=== PATIENT | male | born 1965 | race Caucasian/White ===

== ENCOUNTER 2018-05-12 11:13 | Outpatient (REF) | payer MEDICAID, SELFPAY ==
[2018-05-12 21:54] LABS: TSH (W/Ref FT4) 1.12 uIU/mL (0.358-3.74)
== END 2018-05-12 11:33 ==
LOC: NCHCN 11:13
PROVIDERS: PCP Family Medicine; Visit Provider Family Medicine
DX: E03.9 Hypothyroidism, unspecified (principal)
CPT/HCPCS: 84443

== ENCOUNTER 2018-06-17 09:14 | Outpatient (REF) | payer MEDICAID, SELFPAY ==
[2018-06-17 19:38] LABS: FREE T4 1.24 ng/dL (0.76-1.46)
[2018-06-17 19:57] LABS: C-Reactive Protein < 0.05 mg/dL (0.0-0.3)
[2018-06-17 20:02] LABS: ESR 5 MM/HR (1-20)
== END 2018-06-17 09:34 ==
LOC: NCHCN 09:14
PROVIDERS: PCP Family Medicine; Visit Provider Family Medicine
DX: M06.9 Rheumatoid arthritis, unspecified (principal); E03.9 Hypothyroidism, unspecified
CPT/HCPCS: 85652; 84439; 86140

== ENCOUNTER 2018-06-23 01:22 | Outpatient (CLI) | payer MEDICAID, SELFPAY ==
--- NOTE | 2018-06-23 15:00 | DIABASSESS_ITS ---
DESCRIPTION/ASSESSMENT: Douglas Tellez presents for diabetes self management looking for CGM discussion. He admits his blood sugars have been variable. MEDICATION: 26u Lantus in AM, 16+ units PM based on his blood sugar. He guesses his dose of Novolog taking 5 units for some meals. MONITORING: Douglas tests his blood sugars up to 4 times a day. He is limited to 4 strips a day, so he does not often test when he feels hypoglycemic as he fears running out of strips. The time and date on his glucometer is incorrect, so it is difficult to determine the timing of his blood sugars. Range of 89-438. He states he does not always know when he has a low blood sugar. He treats hypoglycemia symptoms with crackers. A1c 8.3. PHYSICAL ACTIVITY: Douglas has limited movement secondary to rheumatoid arthritis. He is treated with Methotrexate at this time. He wonders if this causes hyperglycemia. He is unable to work because of this. He states he is in constant pain. STRESS: Douglas admits to high stress due to his inability to work. He has always performed physical work. FOOD: Douglas eats ham, egg, toast for breakfast, or just toast and butter; sometimes skips lunch and eats typical supper, last night tacos. States he loves pasta and potato. He is having difficulty affording food without working regularly. INTERVENTION: Douglas is concerned about his blood sugars and is interested in discussing managing blood sugars better regardless of CGM. MONITORING: Discussed Dexcom glucometer advantages and he is shown the device to understand size and how it works. MEDICATION: Explained basal:bolus. Discussed basal insulin action and emphasized bolus insulin is meant to correct hyperglycemia; not basal insulin and he voices understanding. PLAN: Douglas is willing to monitor blood sugars before each meal and bedtime and document food intake for 2 days. He wishes to return for follow-up Wednesday AM. Individual DSME/T __2__ units billed TIME IN: 1500 OUT: 1610 No DM group education series being offered at this time.
== END 2018-06-23 01:42 ==
PROVIDERS: PCP Family Medicine; Visit Provider Dietitian, Registered
DX: E10.9 Type 1 diabetes mellitus without complications (principal); Z79.4 Long term (current) use of insulin; Z71.3 Dietary counseling and surveillance
CPT/HCPCS: G0108

== ENCOUNTER 2018-06-27 10:01 | Outpatient (CLI) | payer MEDICAID, SELFPAY ==
--- NOTE | 2018-06-27 09:00 | DIABASSESS_ITS ---
DESCRIPTION/ASSESSMENT: Douglas states his blood sugars are much better. Fasting blood sugars all less than 200, mostly less than 150; other blood sugars through day also improved. He was hypoglycemic one morning. He is taking Lantus consistently but decreased by 1 unit; 26units PM, now 15units AM. He is taking his Novolog for food and correction, however it is evident he under-doses because of fear of hypoglycemia in the night. Douglas states he is being more careful about what he eats simply because he has to write it down. He believes this is improving his blood sugars as well. INTERVENTION: Suggested ongoing decrease in basal insulin 1 unit every few days and watching fasting blood sugar. Discussed foods that impact blood sugars and importance of taking insulin as directed. With decrease in basal, his fear of nocturnal hypoglycemia should be decreased. Reviewed CGM system, process for obtaining the Telecardia 6 CGM. He is given an application to complete as desired. ACTION PLAN: Douglas will continue to document his food, blood sugar and insulin dose; dose for carbohydrate with every meal, especially breakfast, unless he is very active that morning Decrease his Lantus dose 1 unit every few days and monitor fasting blood sugar for effect. He will take Novolog as directed; avoid bedtime correction with Novolog unless above 200, and preferably not at all. He will complete his CGM application as desired and return it for submission. We will be in touch by telephone in the meantime. Individual MNT discussion face to face 20 minutes 1 unit billed No DM group education series being offered at this time.
== END 2018-06-27 10:21 ==
PROVIDERS: PCP Family Medicine; Visit Provider Dietitian, Registered
DX: E11.9 Type 2 diabetes mellitus without complications (principal); Z79.4 Long term (current) use of insulin; Z71.3 Dietary counseling and surveillance
CPT/HCPCS: 97802

== ENCOUNTER 2018-10-20 00:24 | Outpatient (CLI) | payer OTHER, MEDICAID, SELFPAY ==
--- NOTE | 2018-10-20 10:25 | DI.RAD_ITS ---
SYMPTOMS/DIAGNOSIS: DISABILITY DETERMINATION, LT KNEE PAIN, PAIN IN HIPS LEFT KNEE: Three views were obtained. There is an intramedullary violet in place in the femur. There is moderate narrowing of the medial tibiofemoral cartilaginous joint space. Minimal hypertrophic spurring of the bones of the knee noted. CONCLUSION: Mild to moderate DJD predominantly involving medial tibiofemoral joint. PELVIS AND BILATERAL HIPS: Six views were obtained. There are marked degenerative changes of the lower lumbar spine. There is narrowing of the cartilaginous joint space of the left hip superiorly with subchondral sclerosis and cyst formation of the acetabulum. Mild degenerative changes also seen involving right hip. There is heterotopic bone formation associated with the greater trochanter of the femur on the left with an intramedullary violet and fixation screw in place. Cerclage wires are also present proximally. CONCLUSION: Mild DJD right hip, moderate DJD left hip. Left intramedullary violet in place in the femur. Identified by photo [place] license
== END 2018-10-20 00:44 ==
PROVIDERS: PCP Family Medicine; Visit Provider Pediatrics Pediatric Rheumatology
DX: M25.562 Pain in left knee (principal); M25.551 Pain in right hip; M25.552 Pain in left hip; M17.12 Unilateral primary osteoarthritis, left knee; M16.0 Bilateral primary osteoarthritis of hip; Z02.71 Encounter for disability determination
CPT/HCPCS: 73521; 73560

== ENCOUNTER 2018-11-24 08:56 | Outpatient (CLI) | payer MEDICAID, SELFPAY ==
[2018-11-24 10:27] LABS: Anion Gap 15.6 mmol/L (3-11); BUN 20 mg/dL (7-18); CO2 22.4 mmol/L (21.0-32.0); CREATININE 0.92 mg/dL (0.70-1.30); Calcium 9.5 mg/dL (8.5-10.1); Chloride 100 mmol/L (98-107); Glucose 225 mg/dL (70-100); Potassium 4.9 mmol/L (3.5-5.1); Sodium 138 mmol/L (136-145)
[2018-11-25 16:20] LABS: C-Peptide <0.1 ng/mL (1.1 - 4.4)
[2018-11-29 17:41] LABS: GAD65 Ab Assay 17.5 nmol/L (<= 0.02)
== END 2018-11-24 09:16 ==
PROVIDERS: PCP Family Medicine; Visit Provider Internal Medicine Endocrinology, Diabetes & Metabolism
DX: E10.65 Type 1 diabetes mellitus with hyperglycemia (principal)
CPT/HCPCS: 36415; 80048; 86341; 84681

== ENCOUNTER 2019-02-23 01:27 | Outpatient (CLI) | payer MEDICAID, SELFPAY ==
[2019-02-23 09:24] LABS: Hemoglobin A1C 7.7 % (4.5-6.2)
[2019-02-23 09:33] LABS: Anion Gap 10.8 mmol/L (3-11); BUN 16 mg/dL (7-18); CO2 25.2 mmol/L (21.0-32.0); CREATININE 0.84 mg/dL (0.70-1.30); Calcium 9.1 mg/dL (8.5-10.1); Chloride 106 mmol/L (98-107); Glucose 148 mg/dL (70-100); Potassium 4.6 mmol/L (3.5-5.1); Sodium 142 mmol/L (136-145)
[2019-02-24 14:23] LABS: Fructosamine 305 mcmol/L (200 - 285)
== END 2019-02-23 01:47 ==
PROVIDERS: PCP Family Medicine; Visit Provider Internal Medicine Endocrinology, Diabetes & Metabolism
DX: E10.65 Type 1 diabetes mellitus with hyperglycemia (principal)
CPT/HCPCS: 36415; 80048; 82985; 83036

== ENCOUNTER 2019-07-03 02:14 | Outpatient (CLI) | payer MEDICAID, SELFPAY ==
[2019-07-03 08:04] LABS: Anion Gap 8.1 mmol/L (3-11); BUN 19 mg/dL (7-18); CO2 27.9 mmol/L (21.0-32.0); CREATININE 0.87 mg/dL (0.70-1.30); Calcium 9.4 mg/dL (8.5-10.1); Chloride 103 mmol/L (98-107); Glucose 179 mg/dL (74-106); Potassium 5.1 mmol/L (3.5-5.1); Sodium 139 mmol/L (136-145)
[2019-07-03 08:37] LABS: Hemoglobin A1C 6.8 % (3.8-5.6)
[2019-07-04 13:35] LABS: Fructosamine 246 mcmol/L (200 - 285)
== END 2019-07-03 02:34 ==
PROVIDERS: PCP Family Medicine; Visit Provider Internal Medicine Endocrinology, Diabetes & Metabolism
DX: E10.65 Type 1 diabetes mellitus with hyperglycemia (principal)
CPT/HCPCS: 36415; 80048; 82985; 83036

== ENCOUNTER 2019-07-18 10:42 | Outpatient (CLI) | payer MEDICAID, SELFPAY ==
[2019-07-18 12:35] LABS: Abs Immature Grans 0.02 k/cumm (0.0-0.09); Absolute Basophil Count 0.02 k/cumm (0.0-0.2); Absolute Eosinophil Count 0.07 k/cumm (0.0-0.7); Absolute Lymphocyte Count 2.19 k/cumm (1.2-3.4); Absolute Monocyte Count 0.69 k/cumm (0.11-0.7); Absolute Neutrophil Count 7.14 k/cumm (1.2-6.7); Basophils % 0.2; Eosinophils % 0.7; HCT 43.5 % (40.0-50.0); HGB 14.2 g/dL (13.5-17.5); Immature Grans % 0.2 %; Lymphocytes % 21.6; Mean Corp. HGB Concentration 32.6 g/dL (32.0-36.0); Mean Corpuscular Hemoglobin 30.5 pg (27.0-33.0); Mean Corpuscular Volume 93.3 fL (80-95); Mean Platelet Volume 9.9 fL (8.0-11.0); Monocytes % 6.8; Neutrophils % 70.5; Platelet Count 531 x1000/uL (130-400); RBC 4.66 m/cumm (4.50-6.00); RBC Distribution Width 13.4 % (11.8-14.1); White Blood Cell Count 10.13 k/cumm (4.4-10.8)
[2019-07-18 12:49] LABS: ALT 28 U/L (16-63); AST 19 U/L (15-37); Albumin 4.3 g/dL (3.4-5.0); Alkaline Phosphatase 88 U/L (46-116); Anion Gap 8.3 mmol/L (3-11); BUN 17 mg/dL (7-18); Bilirubin, Total 0.4 mg/dL (0.2-1.0); C-Reactive Protein 0.31 mg/dL (0.0-0.3); CO2 29.7 mmol/L (21.0-32.0); CREATININE 0.89 mg/dL (0.70-1.30); Calcium 9.5 mg/dL (8.5-10.1); Chloride 106 mmol/L (98-107); Glucose 64 mg/dL (74-106); Sodium 144 mmol/L (136-145); Total Protein 7.2 g/dL (6.4-8.2)
[2019-07-18 14:33] LABS: ESR 35 mm/hr (1-20)
== END 2019-07-18 11:02 ==
PROVIDERS: Internal Medicine Rheumatology; PCP Family Medicine; Visit Provider Family Medicine
DX: M06.9 Rheumatoid arthritis, unspecified (principal)
CPT/HCPCS: 36415; 80053; 85652; 85025; 86140

== ENCOUNTER 2019-10-01 09:37 | Outpatient (REF) | payer MEDICAID, SELFPAY ==
[2019-10-01 11:15] LABS: Anion Gap 11.1 mmol/L (3-11); BUN 17 mg/dL (7-18); CO2 25.9 mmol/L (21.0-32.0); CREATININE 0.82 mg/dL (0.70-1.30); Calcium 9.4 mg/dL (8.5-10.1); Chloride 104 mmol/L (98-107); Glucose 89 mg/dL (74-106); Potassium 4.5 mmol/L (3.5-5.1); Sodium 141 mmol/L (136-145)
[2019-10-02 04:57] LABS: Hemoglobin A1C 6.6 % (3.8-5.6)
[2019-10-02 16:17] LABS: Fructosamine 267 mcmol/L (200 - 285)
== END 2019-10-01 09:57 ==
LOC: LBN 09:37
PROVIDERS: PCP Family Medicine; Visit Provider Internal Medicine Endocrinology, Diabetes & Metabolism
DX: E10.65 Type 1 diabetes mellitus with hyperglycemia (principal)
CPT/HCPCS: 80048; 82985; 83036

== ENCOUNTER 2019-11-16 02:27 | Outpatient (CLI) | payer MEDICAID, SELFPAY ==
[2019-11-16 13:33] LABS: ALT 39 U/L (16-63); AST 27 U/L (15-37); Albumin 3.7 g/dL (3.4-5.0); Alkaline Phosphatase 91 U/L (46-116); Anion Gap 9.2 mmol/L (3-11); BUN 18 mg/dL (7-18); Bilirubin, Total 0.6 mg/dL (0.2-1.0); C-Reactive Protein 0.49 mg/dL (0.0-0.3); CO2 26.8 mmol/L (21.0-32.0); CREATININE 1.05 mg/dL (0.70-1.30); Chloride 102 mmol/L (98-107); Glucose 209 mg/dL (74-106); Potassium 4.3 mmol/L (3.5-5.1); Sodium 138 mmol/L (136-145); Total Protein 6.9 g/dL (6.4-8.2)
[2019-11-16 13:37] LABS: Calcium 9.2 mg/dL (8.5-10.1)
== END 2019-11-16 02:47 ==
PROVIDERS: PCP Family Medicine; Visit Provider Internal Medicine
DX: M05.9 Rheumatoid arthritis with rheumatoid factor, unspecified (principal); M06.9 Rheumatoid arthritis, unspecified; Z79.899 Other long term (current) drug therapy
CPT/HCPCS: 36415; 80053; 86140

== ENCOUNTER 2019-12-04 02:34 | Outpatient (CLI) | payer MEDICAID, SELFPAY ==
[2019-12-04 13:04] LABS: ALT 35 U/L (16-63); AST 23 U/L (15-37); Alkaline Phosphatase 87 U/L (46-116); Anion Gap 6.7 mmol/L (3-11); BUN 16 mg/dL (7-18); Bilirubin, Total 0.7 mg/dL (0.2-1.0); C-Reactive Protein 0.46 mg/dL (0.0-0.3); CO2 27.3 mmol/L (21.0-32.0); CREATININE 0.91 mg/dL (0.70-1.30); Calcium 9.3 mg/dL (8.5-10.1); Chloride 104 mmol/L (98-107); Glucose 136 mg/dL (74-106); Potassium 3.9 mmol/L (3.5-5.1); Sodium 138 mmol/L (136-145)
[2019-12-05 11:25] LABS: Calculated LDL 75 mg/dL (<100); Cholesterol 155 mg/dL (<200); HDL Cholesterol 71 mg/dL (40-60); TSH (W/Ref FT4) 0.22 uIU/mL (0.36-3.74); Triglyceride 49 mg/dL (<150)
[2019-12-05 11:44] LABS: FREE T4 1.26 ng/dL (0.76-1.46)
== END 2019-12-04 02:54 ==
PROVIDERS: PCP Family Medicine; Visit Provider Internal Medicine
DX: M05.9 Rheumatoid arthritis with rheumatoid factor, unspecified (principal); E03.9 Hypothyroidism, unspecified; E78.5 Hyperlipidemia, unspecified; Z79.899 Other long term (current) drug therapy
CPT/HCPCS: 36415; 80053; 80061; 84439; 84443; 86140

== ENCOUNTER 2020-01-04 02:48 | Outpatient (CLI) | payer MEDICAID, SELFPAY ==
[2020-01-04 08:39] LABS: ALT 32 U/L (16-63); AST 21 U/L (15-37); Albumin 3.6 g/dL (3.4-5.0); Alkaline Phosphatase 67 U/L (46-116); Anion Gap 8.2 mmol/L (3-11); BUN 16 mg/dL (7-18); Bilirubin, Total 0.4 mg/dL (0.2-1.0); C-Reactive Protein 0.17 mg/dL (0.0-0.3); CO2 27.8 mmol/L (21.0-32.0); Chloride 104 mmol/L (98-107); Glucose 204 mg/dL (74-106); Potassium 4.6 mmol/L (3.5-5.1); Sodium 140 mmol/L (136-145); Total Protein 6.4 g/dL (6.4-8.2)
== END 2020-01-04 03:08 ==
PROVIDERS: PCP Family Medicine; Visit Provider Internal Medicine
DX: M05.9 Rheumatoid arthritis with rheumatoid factor, unspecified (principal); Z79.899 Other long term (current) drug therapy; M06.9 Rheumatoid arthritis, unspecified
CPT/HCPCS: 36415; 80053; 86140

== ENCOUNTER 2020-02-23 12:21 | Outpatient (REF) | payer MEDICAID, SELFPAY ==
[2020-02-23 19:30] LABS: Abs Immature Grans 0.01 10^3/uL (0.0-0.06); Absolute Basophil Count 0.01 10^3/uL (0.0-0.2); Absolute Lymphocyte Count 1.48 10^3/uL (1.2-3.4); Absolute Monocyte Count 0.39 10^3/uL (0.1-0.8); Basophils % 0.2; Eosinophils % 1.6; HCT 45.9 % (40.0-50.0); Immature Grans % 0.2; Lymphocytes % 24.3; MCH 30.9 pg (27.0-33.0); MCHC 32.7 % (32.0-36.0); MCV 94.4 fL (80-95); MPV 10.6 fL (8.0-11.0); Monocytes % 6.4; Neutrophils % 67.3; Nucleated RBC 0 %; Platelet Count 333 10^3/uL (130-400); RBC 4.86 10^6/uL (4.36-5.78); RDW 13.7 % (11.8-14.1); RDW-SD 47.3 fL; WBC 6.09 10^3/uL (4.4-10.8)
[2020-02-23 19:41] LABS: ALT 76 U/L (16-63); AST 61 U/L (15-37); Alkaline Phosphatase 66 U/L (46-116); Anion Gap 8.6 mmol/L (3-11); BUN 16 mg/dL (7-18); Bilirubin, Total 0.8 mg/dL (0.2-1.0); CO2 27.4 mmol/L (21.0-32.0); CREATININE 0.82 mg/dL (0.70-1.30); Calcium 9.3 mg/dL (8.5-10.1); Chloride 101 mmol/L (98-107); Glucose 280 mg/dL (74-106); Potassium 4.8 mmol/L (3.5-5.1); Sodium 137 mmol/L (136-145); Total Protein 6.8 g/dL (6.4-8.2)
[2020-02-23 20:38] LABS: ESR 9 mm/hr (1-20)
== END 2020-02-23 12:41 ==
LOC: LBN 12:21
PROVIDERS: PCP Family Medicine; Visit Provider Internal Medicine
DX: M05.9 Rheumatoid arthritis with rheumatoid factor, unspecified (principal); Z79.899 Other long term (current) drug therapy
CPT/HCPCS: 80053; 85652; 85025; 86140

== ENCOUNTER 2020-03-11 17:09 | Outpatient (REF) | payer MEDICAID, SELFPAY ==
[2020-03-11 20:18] LABS: ALT 37 U/L (16-63); AST 15 U/L (15-37); Albumin 3.9 g/dL (3.4-5.0); Alkaline Phosphatase 65 U/L (46-116); Anion Gap 11.4 mmol/L (3-11); BUN 11 mg/dL (7-18); Bilirubin, Total 0.5 mg/dL (0.2-1.0); CO2 24.6 mmol/L (21.0-32.0); CREATININE 0.88 mg/dL (0.70-1.30); Calcium 9.3 mg/dL (8.5-10.1); Chloride 104 mmol/L (98-107); Glucose 86 mg/dL (74-106); Sodium 140 mmol/L (136-145); Total Protein 6.5 g/dL (6.4-8.2)
[2020-03-13 10:30] LABS: Lyme Ab w Rflx to Lyme Confirm Negative (Negative)
== END 2020-03-11 17:29 ==
LOC: NCHCN 17:09
PROVIDERS: Internal Medicine; PCP Family Medicine; Visit Provider Nurse Practitioner Family
DX: W57.XXXA Bitten or stung by nonvenomous insect and other nonvenomous arthropods, initial encounter (principal); T14.8XXA Other injury of unspecified body region, initial encounter; M05.9 Rheumatoid arthritis with rheumatoid factor, unspecified; Z79.899 Other long term (current) drug therapy
CPT/HCPCS: 80053; 86618

== ENCOUNTER 2020-04-23 15:12 | Outpatient (REF) | payer MEDICAID, SELFPAY ==
[2020-04-23 19:33] LABS: C-Reactive Protein 0.07 mg/dL (0.0-0.3)
[2020-04-23 20:09] LABS: ESR 9 mm/hr (1-20)
== END 2020-04-23 15:32 ==
LOC: LBN 15:12
PROVIDERS: PCP Family Medicine; Visit Provider Internal Medicine
DX: M05.9 Rheumatoid arthritis with rheumatoid factor, unspecified (principal)
CPT/HCPCS: 85652; 86140

== ENCOUNTER 2020-05-21 20:16 | Outpatient (REF) | payer MEDICAID, SELFPAY ==
[2020-05-21 19:59] LABS: Eosinophils % 1.6; HCT 44.7 % (40.0-50.0); HGB 14.7 g/dL (13.5-17.5); Lymphocytes % 24.8; MCH 30.8 pg (27.0-33.0); MCHC 32.9 % (32.0-36.0); MCV 93.7 fL (80-95); MPV 11.4 fL (8.0-11.0); Monocytes % 6.8; Neutrophils % 66.2; Platelet Count 301 10^3/uL (130-400); RBC 4.77 10^6/uL (4.36-5.78); RDW-SD 41.9 fL; WBC 8.78 10^3/uL (4.4-10.8)
[2020-05-21 20:00] LABS: Abs Immature Grans 0.03 10^3/uL (0.0-0.06); Absolute Basophil Count 0.03 10^3/uL (0.0-0.2); Absolute Eosinophil Count 0.14 10^3/uL (0.0-0.7); Absolute Lymphocyte Count 2.18 10^3/uL (1.2-3.4); Basophils % 0.3; Immature Grans % 0.3; Nucleated RBC 0 %
[2020-05-21 20:20] LABS: ALT 33 U/L (16-63); AST 26 U/L (15-37); Albumin 4.1 g/dL (3.4-5.0); Alkaline Phosphatase 68 U/L (46-116); Bilirubin, Direct 0.24 mg/dL (0.00-0.20); C-Reactive Protein 0.07 mg/dL (0.0-0.3); Total Protein 6.8 g/dL (6.4-8.2)
[2020-05-21 21:26] LABS: ESR 3 mm/hr (1-20)
[2020-05-23 10:17] LABS: HIV-1/2 Ag & Ab Screen Negative (Negative)
== END 2020-05-21 20:36 ==
LOC: LBN 20:16
PROVIDERS: PCP Family Medicine; Visit Provider Internal Medicine
DX: M05.9 Rheumatoid arthritis with rheumatoid factor, unspecified (principal); M05.89 Other rheumatoid arthritis with rheumatoid factor of multiple sites; Z79.899 Other long term (current) drug therapy; Z11.4 Encounter for screening for human immunodeficiency virus [HIV]
CPT/HCPCS: 80076; 85652; 87389; 82565; 85025; 86140

== ENCOUNTER 2020-05-24 03:39 | Outpatient (CLI) | payer MEDICAID, SELFPAY ==
[2020-05-24 14:57] LABS: ALT 35 U/L (16-63); AST 22 U/L (15-37); Albumin 4.2 g/dL (3.4-5.0); Alkaline Phosphatase 67 U/L (46-116); Anion Gap 11.2 mmol/L (3-11); BUN 15 mg/dL (7-18); Bilirubin, Total 0.7 mg/dL (0.2-1.0); CO2 25.8 mmol/L (21.0-32.0); CREATININE 0.82 mg/dL (0.70-1.30); Calcium 9.6 mg/dL (8.5-10.1); Chloride 104 mmol/L (98-107); Glucose 70 mg/dL (74-106); Potassium 4.1 mmol/L (3.5-5.1); Sodium 141 mmol/L (136-145); Total Protein 7.1 g/dL (6.4-8.2)
[2020-05-24 15:13] LABS: C-Reactive Protein < 0.05 mg/dL (0.0-0.3)
[2020-05-24 16:05] LABS: Abs Immature Grans 0.02 10^3/uL (0.0-0.06); Absolute Basophil Count 0.04 10^3/uL (0.0-0.2); Absolute Eosinophil Count 0.15 10^3/uL (0.0-0.7); Absolute Lymphocyte Count 2.38 10^3/uL (1.2-3.4); Absolute Monocyte Count 0.51 10^3/uL (0.1-0.8); Absolute Neutrophil Count 5.08 10^3/uL (1.2-6.7); Basophils % 0.5; Eosinophils % 1.8; HCT 46.2 % (40.0-50.0); HGB 15.4 g/dL (13.5-17.5); Immature Grans % 0.2; Lymphocytes % 29.1; MCH 31.1 pg (27.0-33.0); MCHC 33.3 % (32.0-36.0); MCV 93.3 fL (80-95); MPV 10.9 fL (8.0-11.0); Monocytes % 6.2; Neutrophils % 62.2; Nucleated RBC 0 %; Platelet Count 322 10^3/uL (130-400); RBC 4.95 10^6/uL (4.36-5.78); RDW 12.3 % (11.8-14.1); RDW-SD 42.3 fL; WBC 8.18 10^3/uL (4.4-10.8)
[2020-05-24 16:41] LABS: ESR 4 mm/hr (1-20)
[2020-05-29 14:31] LABS: TB Interpretation Negative (Negative)
== END 2020-05-24 03:59 ==
PROVIDERS: PCP Family Medicine; Visit Provider Internal Medicine
DX: M05.9 Rheumatoid arthritis with rheumatoid factor, unspecified (principal); Z79.899 Other long term (current) drug therapy
CPT/HCPCS: 36415; 80053; 85652; 85025; 86140; 86480

== ENCOUNTER 2020-06-10 17:46 | Outpatient (REF) | payer MEDICAID, SELFPAY ==
[2020-06-10 17:29] LABS: Hemoglobin A1C 6.8 % (<5.7)
[2020-06-10 17:37] LABS: ALT 32 U/L (16-63); AST 21 U/L (15-37); Albumin 4.2 g/dL (3.4-5.0); Alkaline Phosphatase 62 U/L (46-116); Anion Gap 10.4 mmol/L (3-11); BUN 21 mg/dL (7-18); Bilirubin, Total 0.9 mg/dL (0.2-1.0); CO2 25.6 mmol/L (21.0-32.0); CREATININE 0.91 mg/dL (0.70-1.30); Calcium 9.2 mg/dL (8.5-10.1); Calculated LDL 89 mg/dL (<100); Chloride 102 mmol/L (98-107); Cholesterol 187 mg/dL (<200); Glucose 152 mg/dL (74-106); HDL Cholesterol 88 mg/dL (40-60); Potassium 4.7 mmol/L (3.5-5.1); Sodium 138 mmol/L (136-145); TSH 2.06 uIU/mL (0.36-3.74); Triglyceride 52 mg/dL (<150)
[2020-06-10 18:05] LABS: COMMENT (LAB VIEW ONLY) 161.32 mg/dL
[2020-06-12 16:16] LABS: Fructosamine 305 mcmol/L (200 - 285)
== END 2020-06-10 18:06 ==
LOC: LBN 17:46
PROVIDERS: Internal Medicine Endocrinology, Diabetes & Metabolism; PCP Family Medicine; Visit Provider Family Medicine
DX: E03.9 Hypothyroidism, unspecified (principal); E10.65 Type 1 diabetes mellitus with hyperglycemia
CPT/HCPCS: 80053; 80061; 82043; 82570; 82985; 83036; 84443

== ENCOUNTER 2020-11-19 16:15 | Outpatient (REF) | payer MEDICAID, SELFPAY ==
[2020-11-19 19:36] LABS: ESR 6 mm/hr (0-20)
[2020-11-19 19:56] LABS: Anion Gap 10.5 mmol/L (3-11); BUN 16 mg/dL (7-18); C-Reactive Protein 0.08 mg/dL (0.0-0.3); CO2 25.5 mmol/L (21.0-32.0); CREATININE 0.9 mg/dL (0.70-1.30); Calcium 9.1 mg/dL (8.5-10.1); Chloride 105 mmol/L (98-107); Glucose 184 mg/dL (74-106); Potassium 4.3 mmol/L (3.5-5.1); Sodium 141 mmol/L (136-145); TSH (W/Ref FT4) 2.22 uIU/mL (0.36-3.74)
[2020-11-20 17:17] LABS: PSA, Screening 0.7 ng/mL (0.0-3.5)
== END 2020-11-19 16:16 | disposition home or self-care (01) ==
LOC: NCHCN 16:15
PROVIDERS: PCP Family Medicine; Visit Provider Family Medicine
DX: M06.9 Rheumatoid arthritis, unspecified (principal); E10.9 Type 1 diabetes mellitus without complications; Z12.5 Encounter for screening for malignant neoplasm of prostate
CPT/HCPCS: 80048; 84153; 85652; 84443; 86140

== ENCOUNTER 2021-10-10 18:27 | Outpatient (REF) | payer MEDICAID, SELFPAY ==
[2021-10-10 15:31] LABS: HGB 14.7 g/dL (13.5-17.5); MCHC 33.4 % (32.0-36.0); MCV 93 fL (80-95); MPV 10.6 fL (8.0-11.0); Platelet Count 293 10^3/uL (130-400); RBC 4.74 10^6/uL (4.36-5.78); RDW 12.4 % (11.8-14.1); RDW-SD 42.9 fL; WBC 7.66 10^3/uL (4.4-10.8)
[2021-10-10 15:39] LABS: ESR 10 mm/hr (0-20)
[2021-10-10 15:51] LABS: ALT 25 U/L (16-63); AST 18 U/L (15-37); Alkaline Phosphatase 75 U/L (46-116); Anion Gap 10.2 mmol/L (3-11); BUN 17 mg/dL (7-18); Bilirubin, Total 0.6 mg/dL (0.2-1.0); C-Reactive Protein 0.16 mg/dL (0.0-0.3); CO2 24.8 mmol/L (21.0-32.0); CREATININE 0.8 mg/dL (0.70-1.30); Calcium 9.1 mg/dL (8.5-10.1); Calculated LDL 91 mg/dL (<100); Chloride 105 mmol/L (98-107); Cholesterol 184 mg/dL (<200); Glucose 203 mg/dL (74-106); HDL Cholesterol 84 mg/dL (40-60); Potassium 4.4 mmol/L (3.5-5.1); Sodium 140 mmol/L (136-145); TSH (W/Ref FT4) 1.52 uIU/mL (0.36-3.74); Total Protein 6.9 g/dL (6.4-8.2); Triglyceride 49 mg/dL (<150)
[2021-10-10 16:03] LABS: Uric Acid 6.5 mg/dL (3.5-7.2)
== END 2021-10-10 18:28 | disposition home or self-care (01) ==
LOC: NCHCN 18:27
PROVIDERS: PCP Family Medicine; Visit Provider Family Medicine
DX: M06.9 Rheumatoid arthritis, unspecified (principal); E03.9 Hypothyroidism, unspecified; I10 Essential (primary) hypertension; E78.5 Hyperlipidemia, unspecified; E10.9 Type 1 diabetes mellitus without complications
CPT/HCPCS: 80053; 80061; 85027; 85652; 84443; 84550; 86140

== ENCOUNTER → 2021-12-17 01:37 | Outpatient (CLI) | payer MEDICAID, SELFPAY ==
--- NOTE | 2021-12-17 | DI.US_ITS ---
Exam(s) US AAA SCREENING EXAM: US AAA SCREENING CLINICAL HISTORY: FAM HX OF ABDOMINAL AORTIC ANEURSYM, Z82.49 COMPARISON: No exams were available for comparison FINDINGS: No evidence of abdominal aortic aneurysm. Abdominal aorta tapers normally. Maximum diameter of the aorta is 2.7 cm, proximally. Distally measures 2.1 cm. Common iliac arteries exhibit mild arterial megaly with diameter is 1.5 cm bilaterally IMPRESSION: No evidence of abdominal aortic aneurysm. There is, however, mild arteriomegaly of the common iliac arteries (1.5 cm bilaterally). DATA REPOSITORY:
== END ==
PROVIDERS: PCP Family Medicine; Visit Provider Family Medicine
DX: I77.89 Other specified disorders of arteries and arterioles (principal); Z82.49 Family history of ischemic heart disease and other diseases of the circulatory system
CPT/HCPCS: 76706

== ENCOUNTER 2022-09-10 12:43 | Outpatient (REF) | payer MEDICAID, SELFPAY ==
[2022-09-10 16:18] LABS: ALT 32 U/L (16-63); AST 19 U/L (15-37); Albumin 4.1 g/dL (3.4-5.0); Alkaline Phosphatase 65 U/L (46-116); Anion Gap 8.8 mmol/L (3-11); BUN 15 mg/dL (7-18); Bilirubin, Total 0.5 mg/dL (0.2-1.0); C-Reactive Protein 0.09 mg/dL (0.0-0.3); CO2 28.2 mmol/L (21.0-32.0); CREATININE 0.8 mg/dL (0.70-1.30); Calcium 9.7 mg/dL (8.5-10.1); Chloride 106 mmol/L (98-107); Estimated GFR 104.51 (mL/min/1.73m2); FREE T4 1.15 ng/dL (0.76-1.46); Glucose 61 mg/dL (74-106); Potassium 4.6 mmol/L (3.5-5.1); Sodium 143 mmol/L (136-145); TSH 1.49 uIU/mL (0.36-3.74); Total Protein 6.9 g/dL (6.4-8.2)
== END 2022-09-10 12:44 | disposition home or self-care (01) ==
LOC: NCHCN 12:43
PROVIDERS: PCP Family Medicine; Visit Provider Family Medicine
DX: Z00.00 Encounter for general adult medical examination without abnormal findings (principal); E03.9 Hypothyroidism, unspecified; I10 Essential (primary) hypertension; M06.9 Rheumatoid arthritis, unspecified
CPT/HCPCS: 80053; 84439; 84443; 86140

== ENCOUNTER 2022-11-17 12:18 | Emergency (ER) | payer MEDICAID, SELFPAY ==
[2022-11-17 12:26] VITALS: BP 140/83; PULSE 82; RESP 18; O2SAT 100
--- NOTE | 2022-11-21 06:57 | NUR.NOTE ---
Nursing Note: PT stated that he no longer wanted to wait to be seen as his BGL went up and his symptoms were gone. PT left without being seen by provider
== END 2022-11-17 13:56 | disposition left against medical advice (07) ==
PROVIDERS: PCP Family Medicine
DX: Z53.21 Procedure and treatment not carried out due to patient leaving prior to being seen by health care provider (principal)

== ENCOUNTER → 2023-07-22 13:48 | Outpatient (CLI) | payer MEDICAID, SELFPAY ==
--- NOTE | 2023-07-22 13:30 | DI.RAD_ITS ---
Exam(s) XR THORACIC SPINE COMPLETE EXAM: XR THORACIC SPINE COMPLETE CLINICAL HISTORY: evaluate pathology, thoracic back pain, M54.6. TECHNIQUE: 2D digital imaging was performed. Three views. COMPARISON: CR THORACIC SPINE from 07/31/2013 FINDINGS: BONES: There is no fracture or destructive lesion. The vertebral bodies and posterior elements are un remarkable. ALIGNMENT: Within normal limits. DISKS: Multilevel disc space narrowing and endplate osteophyte formation. SOFT TISSUE: Visualized lungs are clear. IMPRESSION: Multi level degenerative disc changes DATA REPOSITORY: RADIATION DOSE DELIVERED:
--- NOTE | 2023-07-22 13:30 | DI.RAD_ITS ---
Exam(s) XR LUMBAR SPINE COMPLETE EXAM: XR LUMBAR SPINE COMPLETE CLINICAL HISTORY: evaluate pathology, lumbar back pain, M54.50. TECHNIQUE: 2D digital imaging was performed. Five views. COMPARISON: No exams were available for comparison FINDINGS: BONES: No fracture or destructive lesion. Vertebral body heights are maintained. Prominent endplate osteophytes at L4-5 and L5-S1. Facet degenerative changes also present at these levels. No spondylo lysis or spondylolisthesis. DISKS: Intervertebral severe narrowing of the L4-5 disc space on the left and on the right at L5-S1. ALIGNMENT: Lumbar spinal alignment is within normal limits. SOFT TISSUE: Normal. IMPRESSION: Nerve changes of the lower lumbar spine DATA REPOSITORY: RADIATION DOSE DELIVERED:
--- OUTSIDE RECORDS SUMMARY | 2023-07-22 13:50 | XMS_ITS | Patient Health Record ---
Author Name Unknown [facility] Address [address] [place] [address] Care Team Providers Care Stone Breaker Name Role Phone DEMETRIS SMALL MD Primary Care Provider Unavaila shanta Stepan Cida Unavailable [phone] ALLERGIES Allergen (clinical drug ingredient) Drug/Non Drug Allergy documented on EMR Reaction Allergy Type Onset Date Status Hayfever (uncoded) Unknown Allergy A ctive hydrochlorothiazide HydroCHLOROthiazide Unknown Drug Aller gy Active sildenafil Viagra Unknown Drug Allergy Active REASON FOR REFERRAL No Information MEDICATIONS Medication SIG (Take, Route, Frequency, Duration) Notes Start Date End Date Status Pantoprazole Sodium 40 MG 1 tablet Once a day Active Gabapentin 300 MG 1 capsule Four times a day Active Lisinopril 10 MG 1 tablet Once a day Active Glucosamine-Vitamin D3 - as directed Orally Active Folic Acid 1 MG 2 tablets Once a day Not-Taking NovoLOG FlexPen 100 UNIT/ML as directed Subcutaneous Active Methotrexate 2.5 MG 4 tablets Twice daily on wednesdays Not-Taking Prochlorperazine Maleate 10 MG 1 tablet as needed Orally Three times a day for 10 days 04/16/2020 Active Simvastatin 20 MG 1 tablet Once a day Active Levothyroxine Sodium 150 MCG 1 tablet Once a day Active ProAir HFA 108 (90 Base) MCG/ACT 1 puff as needed Inhalation every 4 hrs Active Tylenol Extra Strength 500 MG 1 tablet as needed Orally every 6 hrs Active Multivitamin - 1 tablet Orally Once a day for 30 day(s) Centrum Mens Active SOCIAL HISTORY Tobacco Use: Social History Observation Description Date Details (start date - stop date) Never Smoker NA - NA Sex Assigned At : Social History Observation Description Sex Assigned At Unknown SMOKING Question Answer Notes Are you a: nonsmoker PLAN OF TREATMENT No Information Insurance Providers Payer Name Payer Address Payer Phone Subscriber Number Group Number Insured Name Patient Relationship to Insured Coverage Start Date Coverage End Date [place] [employer] [employer] [place], [place] [id number] CASTRO SRIVASTAVA Self - patient is the insured SELF PAY [place] [address] [place] [address] CHERIE Smith CASTRO Self - patient is the insured MEDICAL (GENERAL) HISTORY Medical History History ICD Code Plantar fibromatosis wound infection radiculopathy affecting the arm lipoma, back raective airway disease GERD Headaches Hx of dyspnea allergic rhinitis rheumatoid arthitis, chronic back pain, acute hand pain, right preventive health care mass of right wrist joint wrist joint pain, right situational reaction hyperlipidemia diabetes mellitus type 1 retinopathy. diabetic background hypertension hypothyroidism obesity status post amputation of great toe impotence, organic Surgical History Surgery Date(Month/Year) (L) Femur Repair 1987 Cyst removal - (R) wrist cyst removal - neck excision of soft tissue mass , left foot; removal of ingrown toenail, left hallux -TAS 04/16/2020 Hospitalization History Reason Date(Month/Year) see above
== END ==
PROVIDERS: PCP Family Medicine; Visit Provider Nurse Practitioner Family
DX: M54.15 Radiculopathy, thoracolumbar region
CPT/HCPCS: 72072; 72110

== ENCOUNTER 2023-08-03 12:15 | Outpatient (REF) | payer MEDICAID, SELFPAY ==
[2023-08-03 15:49] LABS: HCT 46.8 % (40.0-50.0); HGB 15.7 g/dL (13.5-17.5); MCH 30.3 pg (27.0-33.0); MCHC 33.5 % (32.0-36.0); MCV 90 fL (80-95); MPV 10.4 fL (8.0-11.0); Platelet Count 311 10^3/uL (130-400); RBC 5.19 10^6/uL (4.36-5.78); RDW 11.8 % (11.8-14.1)
[2023-08-03 15:51] LABS: ESR 5 mm/hr (0-20)
[2023-08-03 16:11] LABS: ALT 30 U/L (16-63); AST 18 U/L (15-37); Albumin 4.3 g/dL (3.4-5.0); Alkaline Phosphatase 63 U/L (46-116); Anion Gap 8.4 mmol/L (3-11); BUN 15 mg/dL (7-18); Bilirubin, Total 0.7 mg/dL (0.2-1.0); CO2 28.6 mmol/L (21.0-32.0); Calcium 9.8 mg/dL (8.5-10.1); Chloride 104 mmol/L (98-107); Estimated GFR 88.33 (mL/min/1.73m2); FREE T4 1.21 ng/dL (0.76-1.46); Glucose 159 mg/dL (74-106); Potassium 4.8 mmol/L (3.5-5.1); Sodium 141 mmol/L (136-145); Total Protein 7.7 g/dL (6.4-8.2)
[2023-08-03 16:12] LABS: C-Reactive Protein < 0.50 mg/dL (<or=0.5)
[2023-08-03 17:06] LABS: Hemoglobin A1C 7.5 % (<5.7)
== END 2023-08-03 12:16 | disposition home or self-care (01) ==
LOC: NCHCN 12:15
PROVIDERS: PCP Family Medicine; Referring Provider Family Medicine; Visit Provider Family Medicine
DX: E10.9 Type 1 diabetes mellitus without complications (principal); E03.9 Hypothyroidism, unspecified; M06.9 Rheumatoid arthritis, unspecified
CPT/HCPCS: 80053; 85027; 85652; 83036; 84439; 86140

== ENCOUNTER 2023-08-13 09:43 | Day surgery (SDC) | payer MEDICAID, SELFPAY ==
[2023-08-13 10:01] VITALS: BP 137/80; PULSE 78; RESP 18; TEMP 36.8; O2SAT 96
--- NOTE | 2023-08-13 10:40 | ANES.PREOP_ITS ---
General Info Date of Service Date Performed: 08/13/23 Height: 5 ft 8 in Weight: 104.7 kg Body Mass Index (BMI): 35.1 Surgical Procedure: Operation Date: 08/13/23 11:25 Proposed Procedure Side Surgeon p Cataract Extraction with IOL Implant Right Tima Garg MD Meds Allergies and Home Medications Allergies Allergy/AdvReac Type Severity Reaction Status Date / Time fluticasone [From Flonase] Allergy Intermediate Other (See Verified 08/13/23 09:59 Comment) lisinopril Allergy Mild Wheezing Verified 08/10/23 12:13 angiotensin II acetate, human Allergy Other (See Verified 08/10/23 12:13 Comment) insulin detemir AdvReac Severe Other (See Verified 08/10/23 12:13 [From Levemir U-100 Insulin] Comment) methotrexate AdvReac Intermediate Other (See Verified 08/13/23 09:59 Comment) sildenafil citrate AdvReac Mild Other (See Verified 08/13/23 09:59 [From Viagra] Comment) Home Medication Medication Instructions Recorded gabapentin 400 mg capsule 400 mg PO QID 09/12/13 (Neurontin) levothyroxine 175 mcg tablet 150 mcg PO DAILY 09/12/13 lisinopril 10 mg tablet 10 mg PO DAILY 09/12/13 simvastatin 10 mg tablet 10 mg PO DAILY 09/12/13 glucosamine sulfate 500 mg tablet 1,000 mg PO DAILY 11/17/22 (Glucosamine) insulin aspart U-100 100 unit/mL See Rx Instructions .Route .COMPLEX 11/17/22 (3 mL) subcutaneous pen (Novolog FlexPen U-100 Insulin aspart) insulin glargine 100 unit/mL (3 11 unit subcut QPM 11/17/22 mL) subcutaneous pen (Lantus Solostar U-100 Insulin) insulin glargine 100 unit/mL (3 24 unit subcut QAM 11/17/22 mL) subcutaneous pen (Lantus Solostar U-100 Insulin) multivitamin 1 cap PO DAILY 11/17/22 cyclobenzaprine 5 mg tablet 5 mg PO TID PRN muscle spasm #20 07/22/23 tabs budesonide-formoterol HFA 160 1 inh inhalation BID 08/09/23 mcg-4.5 mcg/actuation aerosol inhaler (Symbicort) pantoprazole 40 mg tablet,delayed 40 mg PO BID 08/09/23 release Current Visit Medications: Current Medications Generic Name Dose Route Start Last Admin Trade Name Freq PRN Reason Stop Dose Admin Acetaminophen 1,000 mg 08/13/23 06:00 Acetaminophen 500 Mg Tab PO 09/12/23 05:59 Q4H PRN PRN Balanced Salt Solution 500 ml 08/13/23 06:00 Balanced Salt Soln.-Plus 500 Ml Bag OP 09/12/23 05:59 DIRECTED MARILEE Miscellaneous Medication 0 ml 08/13/23 06:00 Prednisolone 1%, Moxifloxacin 0.5%, Bromfenac 0.09% 5ml Btl OD 09/12/23 05:59 DIRECTED MARILEE Miscellaneous Medication 0 ml 08/13/23 06:00 08/13/23 10:29 Tropicam./Phenyleph. (1/2.5%) 10 Ml Btl OD 09/12/23 05:59 1 drp DIRECTED MARILEE Administration Tetracaine HCl 0 ml 08/13/23 06:00 Tetracaine 0.5% 4 Ml Btl OD 09/12/23 05:59 DIRECTED MARILEE PFSH Active Problems Active Problems: Problem Status Onset Code Nuclear age-related cataract, right eye H25.11 Medical History Medical History Diabetic retinopathy Hypothyroidism Diabetes mellitus Diabetic neuropathy Essential hypertension Surgical History Surgical History Amputation (R) Great toe Tobacco Smoking/Tobacco Use Status: Never Alcohol Alcohol Intake: never Substance Use Substance use: Occasionally Substance use type: marijuana Vital Signs and Lab Results Vital Signs Most Recent Vital Signs in EMR: Most Recent Vital Signs Temp Pulse Resp BP Pulse Ox 36.8 C 78 18 137/80 96 08/13/23 10:01 08/13/23 10:01 08/13/23 10:01 08/13/23 10:01 08/13/23 10:01 Point of Care Results Point of Care Results: Finger Stick Blood Glucose 208 08/13/23 10:03 Lab Results Blood Type / Crossmatch: No Data to Display Complete Blood Count: White Blood Count 8.70 10^3/uL (4.4-10.8) 08/03/23 09:40 Red Blood Count 5.19 10^6/uL (4.36-5.78) 08/03/23 09:40 Hemoglobin 15.7 g/dL (13.5-17.5) 08/03/23 09:40 Hematocrit 46.8 % (40.0-50.0) 08/03/23 09:40 Platelet Count 311 10^3/uL (130-400) 08/03/23 09:40 Complete Metabolic Panel: Sodium 141 mmol/L (136-145) 08/03/23 09:40 Potassium 4.8 mmol/L (3.5-5.1) 08/03/23 09:40 Chloride 104 mmol/L (98-107) 08/03/23 09:40 Carbon Dioxide 28.6 mmol/L (21.0-32.0) 08/03/23 09:40 BUN 15 mg/dL (7-18) 08/03/23 09:40 Creatinine 1.0 mg/dL (0.70-1.30) 08/03/23 09:40 Est GFR (CKD-EPI 2020) 88.33 (mL/min/1.73m2) 08/03/23 09:40 Calcium 9.8 mg/dL (8.5-10.1) 08/03/23 09:40 Albumin 4.3 g/dL (3.4-5.0) 08/03/23 09:40 Glucose 159 mg/dL (74-106) H 08/03/23 09:40 Hemoglobin A1c 7.5 % (<5.7) H 08/03/23 09:40 C-Reactive Protein < 0.50 mg/dL (<or=0.5) 08/03/23 09:40 Liver Function Panel: Alanine Aminotransferase (ALT/SGPT) 30 U/L (16-63) 08/03/23 09: 40 Aspartate Amino Transf (AST/SGOT) 18 U/L (15-37) 08/03/23 09:40 Coagulation Panel: No Data to Display Cardiac Panel: No Data to Display Arterial Blood Gas: No Data to Display Venous Blood Gas: No Data to Display Pancreas Panel: No Data to Display Thyroid Panel: No Data to Display Infectious Disease: No Data to Display Blood Cultures: No Data to Display Toxicology Panel: No Data to Display Anesthesia Assessment and Plan Anesthesia History Personal History: No History of Anesthesia Complications Family History: No Family History of Anesthesia Complications Exercise Tolerance Exercise Tolerance: Metabolic Equivalents>4 Pertinent Negatives Pertinent Negatives: No Symptoms of GERD, No Major Cardiovascular Symptoms or Complaints and No Major Pulmonary Symptoms or Complaints Cardiac & Pulmonary Exam Cardiac Exam: Normal S1/S2 Heart Sounds Pulmonary Exam: Clear Bilateral Breath Sounds Implantable Cardiac Device Does patient have a Pacemaker or an ICD?: No Airway Exam Known Difficult Airway: No Mallampati Class: 1 Mouth Opening: Normal (> 3cm) Thyromental Distance: Greater than 3 cm Facial Hair: Full James Neck Range of Motion: Full ROM Neck Circumference: Normal Teeth Condition: Normal Dentition ASA Classification ASA Score: ASA 3 Emergency Case?: No NPO Status NPO Status: NPO Clears >2 hours, Solids >8 hours Anesthesia Plan Resuscitation Status: Full Code Anesthesia Technique: MAC Anesthesia Airway Planned: Natural Airway Monitors Used: Standard Monitors
[2023-08-13 10:41] VITALS: BMI 35.1
[2023-08-13] MEDS: Trypan Blue 0.06% 0.5 ML SYR (11:26)
[2023-08-13] MEDS: Balanced Salt Soln.-PLUS 500 ML BAG OP (11:26)
[2023-08-13] MEDS: Tetracaine 0.5% 4 ML BTL OD (11:27)
[2023-08-13] MEDS: Duovisc Viscoelastic System EACH 1 EACH (11:28)
[2023-08-13] MEDS: Lidocaine 1% Pres-Free 5 ML VIAL (11:28)
[2023-08-13] MEDS: Povidone-Iodine Ophth 30 ML BTL (11:30)
[2023-08-13 11:46] VITALS: BP 139/88; PULSE 78; RESP 16; TEMP 36.8; O2SAT 96
--- NOTE | 2023-08-13 11:47 | W.PM.DSUDISC ---
Date of service: 08/13/23 Time of Service: 11:47 Discharge Plan Disposition Patient Disposition: Home Discharge Details Attending Provider: Tima Garg Primary Care Provider: Delisa Reno V Home Meds and New Rx's Prescriptions: No Action cyclobenzaprine 5 mg tablet 5 mg PO TID PRN (Reason: muscle spasm) Qty: 20 0RF levothyroxine 175 MCG tablet 150 mcg PO DAILY gabapentin [Neurontin] 400 MG capsule 400 mg PO QID simvastatin 10 MG tablet 10 mg PO DAILY lisinopril 10 MG tablet 10 mg PO DAILY glucosamine sulfate [Glucosamine] 500 mg Tablet 1,000 mg PO DAILY multivitamin Capsule 1 cap PO DAILY insulin aspart U-100 [Novolog FlexPen U-100 Insulin] 100 unit/mL (3 mL) insulin pen See Rx Instructions .ROUTE .COMPLEX Rx Instructions: Sliding scale insulin glargine [Lantus Solostar U-100 Insulin] 100 unit/mL (3 mL) insulin pen 24 unit SUBCUT QAM insulin glargine [Lantus Solostar U-100 Insulin] 100 unit/mL (3 mL) insulin pen 11 unit SUBCUT QPM pantoprazole 40 mg tablet,delayed release (DR/EC) 40 mg PO BID budesonide-formoterol [Symbicort] 160-4.5 mcg/actuation HFA aerosol inhaler 1 inh inhalation BID Discharge Instructions Stand Alone Forms: DSU Post-Op Cataract, Tracee Rawls (DSU) Discharge Orders Discharge Orders: Discharge Order (Routine); Ordered 08/13/23 Ordered By: Tima Garg DS: Diagnosis Discharge Diagnosis (1) Nuclear age-related cataract, right eye: Status: Resolved
--- NOTE | 2023-08-13 11:48 | ROE_ITS ---
Date of service: 08/13/23 Time of Service: 11:48 Operative Note Operative Note DATE OF PROCEDURE: 08/13/23 PRE-OP DIAGNOSIS: Nuclear/cortical cataract, right eye POST-OP DIAGNOSIS: same PROCEDURE: Cataract extraction using phacoemulsification with intraocular lens implant, right eye SURGEON: Tima Garg ANESTHESIA TYPE: Local By Surgeon and MAC Refer to Anesthesia Record ESTIMATED BLOOD LOSS: 0 PATHOLOGY: none sent COMPLICATIONS: None Patient was transported to: same day Patient's condition: stable Implants: Mitesh Clareon [id number] Indications: Progressive decreased vision due to cataract, right eye Procedure Description: CATARACT SURGERY OPERATIVE REPORT PREOPERATIVE DIAGNOSIS: Nuclear/cortical cataract, right eye POSTOPERATIVE DIAGNOSIS: Same OPERATION: Cataract extraction using phacoemulsification with posterior chamber intraocular lens implant, right eye. IOL: IOL Aboriginal Education Teacher/Model: Mitesh Clareon [id number] IOL Power: + 18.0 diopters IOL Serial Number: [id number] Optic Diameter: 6.0mm Haptic/Overall Diameter: 13.0mm PHACO INFO: Mitesh BringIturion Vision System with OZil and Active Fluidics Cumulative Dispersed Energy (CDE): 4.14 seconds SURGEON: Tima Garg MD, JONI ANESTHESIA: Monitored Anesthesia Care (MAC), with local sub-tenon's anesthetic infiltration COMPLICATIONS: None SPECIMENS: None INDICATIONS FOR PROCEDURE: The patient is a 58-year-old male with history of diminished visual acuity in his right eye secondary to the development of nuclear/cortical cataract. He is significantly symptomatic that he desires cataract surgery and attempt to improve and maximize his vision. The option of cataract surgery was offered to the patient and he wished to proceed. See office notes for detailed information. PROCEDURE: The correct surgical eye was identified and marked as the right eye and the pupil was dilated in the preoperative area using mydriatics and cycloplegics. The dilated pupil size was 7.0 mm. The patient elected to proceed without oral sedation. The patient was brought to the operating room where cardiopulmonary monitoring was instituted and surgical time-out was performed, confirming the correct operative eye and IOL power. Topical anesthesia was administered and ophthalmic povidone-iodine 5% was instilled into the conjunctival fornices. The cristobal-ocular area was prepped with Betadine 10% solution and draped in the usual sterile fashion for intraocular surgery, including an aperture drape. A Tegaderm transparent film dressing was cut in half and used to cover the lashes and lid margins. Care was taken to sequester the lashes and lid margins under the Tegaderm dressing. A lid speculum was placed between the lids of the operative eye and the Mitesh LuxOR Revalia operating microscope was maneuvered into position. Everardo scissors were then used to make a conjunctival buttonhole approximately 6mm posterior to the limbus in the inferonasal quadrant. Blunt dissection was carried out to expose bare sclera, and a blunt-tipped sub-tenon?s anesthesia cannula was introduced and passed posteriorly along the globe where non- preserved plain lidocaine was injected into posterior sub-Tenon?s space. A sideport knife was used to make a paracentesis port. VisionBlue was injected into the anterior chamber and allowed to sit for 20 seconds. Intraocular phenylephrine/lidocaine was injected into the anterior chamber. The anterior chamber was then filled with viscoelastic. A keratome knife was used to construct a two--plane clear corneal tunnel extending 2.0mm into clear cornea. A flap was raised on the anterior capsule and capsulorhexis forceps were used to complete a continuous curvilinear capsulorhexis of 5.0 mm. Balanced salt solution was then used to perform cortical cleaving hydrodissection and nuclear hydrodelineation until the lens could be freely rotated within the capsular bag. The lens nucleus was then disassembled and removed within the capsular bag and iris plane using phacoemulsification. Residual cortical material was removed using the I/A handpiece. The posterior capsule was carefully polished to remove as much residual lens epithelial cells as safely possible. The capsular bag was then inflated and the anterior chamber deepened with cohesive viscoelastic. The lens implant described above was inserted into the capsular bag using the Mitesh Autonome Injector. A Kuglen hook was used to dial the IOL into position. Residual viscoelastic was then removed first from posterior to the IOL, then from the anterior chamber using the I/A handpiece. The lens implant was noted to center nicely within the capsular bag. The incisions were stromally hydrated, and the anterior chamber was reformed using BSS. Then 0.5cc of moxifloxacin 1.0mg/ml were injected into the capsular bag and anterior chamber. The incisions were checked with a Weck spear and found to be secure. Several drops of ophthalmic povidone-iodine 5% were then applied to the eye followed by two drops of combination steroid/NSAID/antibiotic solution. The drapes were removed and a clear plastic protective eye shield was placed over the eye. The patient was then returned to Same Day Surgery in stable condition.
--- NOTE | 2023-08-13 12:20 | W.ANESPOSTOP ---
Postoperative Evaluation Date, Time and Location Date Performed: 08/13/23 Time Performed: 11:55 Patient Location: Day Surgery Unit Vital Signs Most Recent Imported Vital Signs: Most Recent Vital Signs Temp Pulse Resp BP Pulse Ox 36.8 C 78 16 139/88 96 08/13/23 11:46 08/13/23 11:46 08/13/23 11:46 08/13/23 11:46 08/13/23 11:46 Pain Score Most Recent Pain Score: Most Recent Pain Score Pain Level 0 08/13/23 11:46 Assessment Mental Status: Awake (Alert & Oriented to Patient Baseline) Airway and Respiratory Function: Patent airway with normal (patient baseline) respiratory exam Cardiovascular Function: Hemodynamically Stable Hydration Status: Adequately Hydrated Nausea & Vomiting: No Nausea or Vomiting Pain: Pt. Denies Any Pain Peripheral Nerve Block: Patient did not receive a nerve block
== END 2023-08-13 12:06 | disposition home or self-care (01) ==
LOC: SUR 09:43
PROVIDERS: PCP Family Medicine; Visit Provider Ophthalmology
PROC: (CPT 66984; principal; 2023-08-13 11:15)
DX: H25.11 Age-related nuclear cataract, right eye (principal); I10 Essential (primary) hypertension
CPT/HCPCS: 66984; 00123; V2632; J2003

== ENCOUNTER 2023-08-27 06:58 | Day surgery (SDC) | payer MEDICAID, SELFPAY ==
[2023-08-27 07:55] VITALS: BMI 35.1
--- NOTE | 2023-08-27 07:55 | ANES.PREOP_ITS ---
General Info Date of Service Date Performed: 08/27/23 Height: 5 ft 8 in Weight: 104.7 kg Body Mass Index (BMI): 35.1 Surgical Procedure: Operation Date: 08/27/23 08:25 Proposed Procedure Side Surgeon p Cataract Extraction with IOL Implant Left Tima Garg MD Meds Allergies and Home Medications Allergies Allergy/AdvReac Type Severity Reaction Status Date / Time angiotensin II acetate, human Allergy Other (See Verified 08/27/23 07:11 Comment) insulin detemir AdvReac Severe Severe Verified 08/27/23 07:11 [From Levemir U-100 Insulin] Hypoglycemia: Hutchins awful fluticasone [From Flonase] AdvReac Intermediate Lightheaded Verified 08/27/23 07:11 ness methotrexate AdvReac Intermediate Abdominal Verified 08/27/23 07:11 pain sildenafil citrate AdvReac Mild Other (See Verified 08/27/23 07:11 [From Viagra] Comment) Home Medication Medication Instructions Recorded gabapentin 400 mg capsule 400 mg PO QID 09/12/13 (Neurontin) levothyroxine 175 mcg tablet 150 mcg PO DAILY 09/12/13 lisinopril 10 mg tablet 10 mg PO DAILY 09/12/13 simvastatin 10 mg tablet 10 mg PO DAILY 09/12/13 glucosamine sulfate 500 mg tablet 1,000 mg PO DAILY 11/17/22 (Glucosamine) insulin aspart U-100 100 unit/mL See Rx Instructions .Route .COMPLEX 11/17/22 (3 mL) subcutaneous pen (Novolog FlexPen U-100 Insulin aspart) insulin glargine 100 unit/mL (3 11 unit subcut QPM 11/17/22 mL) subcutaneous pen (Lantus Solostar U-100 Insulin) insulin glargine 100 unit/mL (3 24 unit subcut QAM 11/17/22 mL) subcutaneous pen (Lantus Solostar U-100 Insulin) multivitamin 1 cap PO DAILY 11/17/22 cyclobenzaprine 5 mg tablet 5 mg PO TID PRN muscle spasm #20 07/22/23 tabs budesonide-formoterol HFA 160 1 inh inhalation BID 08/09/23 mcg-4.5 mcg/actuation aerosol inhaler (Symbicort) pantoprazole 40 mg tablet,delayed 40 mg PO BID 08/09/23 release Current Visit Medications: Current Medications Generic Name Dose Route Start Last Admin Trade Name Lenora PRN Reason Stop Dose Admin Acetaminophen 1,000 mg 08/27/23 06:00 Acetaminophen 500 Mg Tab PO 09/26/23 05:59 Q4H PRN PRN Balanced Salt Solution 500 ml 08/27/23 06:00 Balanced Salt Soln.-Plus 500 Ml Bag OP 09/26/23 05:59 DIRECTED [facility] Miscellaneous Medication 0 ml 08/27/23 06:00 Prednisolone 1%, Moxifloxacin 0.5%, Bromfenac 0.09% 5ml Btl OS 09/26/23 05:59 DIRECTED [facility] Miscellaneous Medication 0 ml 08/27/23 06:00 08/27/23 07:25 Tropicam./Phenyleph. (1/2.5%) 10 Ml Btl OS 09/26/23 05:59 1 drp DIRECTED [facility] Administration Tetracaine HCl 0 ml 08/27/23 06:00 Tetracaine 0.5% 4 Ml Btl OS 09/26/23 05:59 DIRECTED [facility] PFSH Active Problems Active Problems: Problem Status Onset Code Cortical age-related cataract, left eye H25.012 Nuclear age-related cataract, left eye H25.12 Nuclear age-related cataract, right eye H25.11 Medical History Medical History (Updated 08/25/23 @ 19:58 by Tima Garg MD) Diabetic retinopathy Hypothyroidism Diabetes mellitus Diabetic neuropathy Essential hypertension Surgical History Surgical History (Updated 08/27/23 @ 07:18 by Amanda Jordan) History of open reduction and internal fixation (ORIF) procedure left femur Status post cataract extraction and insertion of intraocular lens of right eye Amputation (R) Great toe Tobacco Smoking/Tobacco Use Status: Never Alcohol Alcohol Intake: never Substance Use Substance use: Occasionally Substance use type: marijuana Vital Signs and Lab Results Point of Care Results Point of Care Results: Finger Stick Blood Glucose 118 08/27/23 07:10 Lab Results Blood Type / Crossmatch: No Data to Display Complete Blood Count: White Blood Count 8.70 10^3/uL (4.4-10.8) 08/03/23 09:40 Red Blood Count 5.19 10^6/uL (4.36-5.78) 08/03/23 09:40 Hemoglobin 15.7 g/dL (13.5-17.5) 08/03/23 09:40 Hematocrit 46.8 % (40.0-50.0) 08/03/23 09:40 Platelet Count 311 10^3/uL (130-400) 08/03/23 09:40 Complete Metabolic Panel: Sodium 141 mmol/L (136-145) 08/03/23 09:40 Potassium 4.8 mmol/L (3.5-5.1) 08/03/23 09:40 Chloride 104 mmol/L (98-107) 08/03/23 09:40 Carbon Dioxide 28.6 mmol/L (21.0-32.0) 08/03/23 09:40 BUN 15 mg/dL (7-18) 08/03/23 09:40 Creatinine 1.0 mg/dL (0.70-1.30) 08/03/23 09:40 Est GFR (CKD-EPI 2020) 88.33 (mL/min/1.73m2) 08/03/23 09:40 Calcium 9.8 mg/dL (8.5-10.1) 08/03/23 09:40 Albumin 4.3 g/dL (3.4-5.0) 08/03/23 09:40 Glucose 159 mg/dL (74-106) H 08/03/23 09:40 Hemoglobin A1c 7.5 % (<5.7) H 08/03/23 09:40 C-Reactive Protein < 0.50 mg/dL (<or=0.5) 08/03/23 09:40 Liver Function Panel: Alanine Aminotransferase (ALT/SGPT) 30 U/L (16-63) 08/03/23 09: 40 Aspartate Amino Transf (AST/SGOT) 18 U/L (15-37) 08/03/23 09:40 Coagulation Panel: No Data to Display Cardiac Panel: No Data to Display Arterial Blood Gas: No Data to Display Venous Blood Gas: No Data to Display Pancreas Panel: No Data to Display Thyroid Panel: No Data to Display Infectious Disease: No Data to Display Blood Cultures: No Data to Display Toxicology Panel: No Data to Display Anesthesia Assessment and Plan Anesthesia History Personal History: No History of Anesthesia Complications Family History: No Family History of Anesthesia Complications Exercise Tolerance Exercise Tolerance: Metabolic Equivalents>4 Pertinent Negatives Pertinent Negatives: No Symptoms of GERD Cardiac & Pulmonary Exam Cardiac Exam: Normal S1/S2 Heart Sounds Pulmonary Exam: Clear Bilateral Breath Sounds Implantable Cardiac Device Does patient have a Pacemaker or an ICD?: No Airway Exam Known Difficult Airway: No Mallampati Class: 2 Mouth Opening: Normal (> 3cm) Thyromental Distance: Greater than 3 cm Neck Range of Motion: Full ROM Neck Circumference: Normal Teeth Condition: Normal Dentition ASA Classification ASA Score: ASA 3 Emergency Case?: No NPO Status NPO Status: NPO Clears >2 hours, Solids >8 hours Anesthesia Plan Resuscitation Status: Full Code Anesthesia Technique: MAC Anesthesia Airway Planned: Natural Airway Monitors Used: Standard Monitors
[2023-08-27] MEDS: Lidocaine 1% Pres-Free 5 ML VIAL (08:14)
[2023-08-27] MEDS: Tetracaine 0.5% 4 ML BTL OS (08:15)
[2023-08-27] MEDS: Balanced Salt Soln.-PLUS 500 ML BAG OP (08:15)
[2023-08-27] MEDS: Duovisc Viscoelastic System EACH 1 EACH (08:16)
[2023-08-27] MEDS: Povidone-Iodine Ophth 30 ML BTL (08:28)
--- NOTE | 2023-08-27 08:33 | ROE_ITS ---
Date of service: 08/27/23 Time of Service: 08:33 Operative Note Operative Note DATE OF PROCEDURE: 08/27/23 PRE-OP DIAGNOSIS: Nuclear cataract, left eye POST-OP DIAGNOSIS: same PROCEDURE: Cataract extraction using phacoemulsification with intraocular lens implant, left eye SURGEON: Tima Garg ANESTHESIA TYPE: Local By Surgeon and MAC Refer to Anesthesia Record PATHOLOGY: none sent COMPLICATIONS: None Patient was transported to: same day Patient's condition: stable Implants: Mitesh Clareon [id number] Indications: Progressive decreased vision due to cataract, left eye Procedure Description: CATARACT SURGERY OPERATIVE REPORT PREOPERATIVE DIAGNOSIS: Nuclear cataract, left eye POSTOPERATIVE DIAGNOSIS: Same OPERATION: Cataract extraction using phacoemulsification with posterior chamber intraocular lens implant, left eye. IOL: IOL Bilingual Student Tutor/Model: Mitesh Clareon [id number] IOL Power: + 17.5 diopters IOL Serial Number: [id number] Optic Diameter: 6.0mm Haptic/Overall Diameter: 13.0mm PHACO INFO: Mitesh Ziiosurion Vision System with OZil and Active Fluidics Cumulative Dispersed Energy (CDE): 5.50 seconds SURGEON: Tima Garg MD, JONI ANESTHESIA: Monitored Anesthesia Care (MAC), with local sub-tenon's anesthetic infiltration COMPLICATIONS: None SPECIMENS: None INDICATIONS FOR PROCEDURE: The patient is a 58-year-old male with history of diminished visual acuity in his left eye secondary to the development of nuclear cataract. He has already undergone cataract surgery in his right eye and now is symptomatic in his left eye and desires cataract surgery there and attempt to improve and maximize his vision. See office notes for detailed information. PROCEDURE: The correct surgical eye was identified and marked as the left eye and the pupil was dilated in the preoperative area using mydriatics and cycloplegics. The dilated pupil size was 7.0 mm. The patient elected to proceed without oral sedation. The patient was brought to the operating room where cardiopulmonary monitoring was instituted and surgical time-out was performed, confirming the correct operative eye and IOL power. Topical anesthesia was administered and ophthalmic povidone-iodine 5% was instilled into the conjunctival fornices. The cristobal-ocular area was prepped with Betadine 10% solution and draped in the usual sterile fashion for intraocular surgery, including an aperture drape. A Tegaderm transparent film dressing was cut in half and used to cover the lashes and lid margins. Care was taken to sequester the lashes and lid margins under the Tegaderm dressing. A lid speculum was placed between the lids of the operative eye and the Mitesh LuxOR Revalia operating microscope was maneuvered into position. Everardo scissors were then used to make a conjunctival buttonhole approximately 6mm posterior to the limbus in the inferonasal quadrant. Blunt dissection was carried out to expose bare sclera, and a blunt-tipped sub-tenon?s anesthesia cannula was introduced and passed posteriorly along the globe where non- preserved plain lidocaine was injected into posterior sub-Tenon?s space. A sideport knife was used to make a paracentesis port. Intraocular phenylephrine/lidocaine was injected into the anterior chamber. The anterior chamber was then filled with viscoelastic. A keratome knife was used construct a two-plane clear corneal tunnel extending 2.0mm into clear cornea. A flap was raised on the anterior capsule and capsulorhexis forceps were used to complete a continuous curvilinear capsulorhexis of 5.0 mm. Balanced salt solution was then used to perform cortical cleaving hydrodisse ction and nuclear hydrodelineation until the lens could be freely rotated within the capsular bag. The lens nucleus was then disassembled and removed within the capsular bag and iris plane using phacoemulsification. Residual cortical material was removed using the irrigation/aspiration handpiece. The posterior capsule was carefully polished to remove as much residual lens epithelial cells as safely possible. The capsular bag was then inflated and the anterior chamber deepened with viscoelastic. The lens implant described above was inserted into the capsular bag using the Mitesh Autonome Injector. A Kuglen hook was used to dial the IOL into position. Residual viscoelastic was then removed first from posterior to the IOL, then from the anterior chamber using the I/A handpiece. The lens implant was noted to center nicely within the capsular bag. The incisions were stromally hydrated, and the anterior chamber was reformed using BSS. Then 0.5cc of moxifloxacin 1.0mg/ml were injected into the capsular bag and anterior chamber. The incisions were checked with a Weck spear and found to be secure. Several drops of ophthalmic povidone-iodine 5% were then applied to the eye followed by two drops of combination steroid/NSAID/antibiotic solution. The drapes were removed and a clear plastic protective eye shield was placed over the eye. The patient was then returned to Same Day Surgery in stable condition.
--- NOTE | 2023-08-27 08:33 | W.PM.DSUDISC ---
Date of service: 08/27/23 Time of Service: 08:33 Discharge Plan Disposition Patient Disposition: Home Discharge Details Attending Provider: Tima Garg Primary Care Provider: Delisa Reno V Home Meds and New Rx's Prescriptions: No Action cyclobenzaprine 5 mg tablet 5 mg PO TID PRN (Reason: muscle spasm) Qty: 20 0RF levothyroxine 175 MCG tablet 150 mcg PO DAILY gabapentin [Neurontin] 400 MG capsule 400 mg PO QID simvastatin 10 MG tablet 10 mg PO DAILY lisinopril 10 MG tablet 10 mg PO DAILY glucosamine sulfate [Glucosamine] 500 mg Tablet 1,000 mg PO DAILY multivitamin Capsule 1 cap PO DAILY insulin aspart U-100 [Novolog FlexPen U-100 Insulin] 100 unit/mL (3 mL) insulin pen See Rx Instructions .ROUTE .COMPLEX Rx Instructions: Sliding scale insulin glargine [Lantus Solostar U-100 Insulin] 100 unit/mL (3 mL) insulin pen 24 unit SUBCUT QAM insulin glargine [Lantus Solostar U-100 Insulin] 100 unit/mL (3 mL) insulin pen 11 unit SUBCUT QPM pantoprazole 40 mg tablet,delayed release (DR/EC) 40 mg PO BID budesonide-formoterol [Symbicort] 160-4.5 mcg/actuation HFA aerosol inhaler 1 inh inhalation BID Discharge Instructions Stand Alone Forms: DSU Post-Op Cataract, Tracee Rawls (DSU) Discharge Orders Discharge Orders: Discharge Order (Routine); Ordered 08/27/23 Ordered By: Tima Garg DS: Diagnosis Discharge Diagnosis (1) Cortical age-related cataract, left eye: Status: Resolved (2) Nuclear age-related cataract, left eye: Status: Resolved
[2023-08-27 08:34] VITALS: BP 140/88; PULSE 82; RESP 16; TEMP 36.7; O2SAT 97
--- NOTE | 2023-08-27 08:50 | W.ANESPOSTOP ---
Postoperative Evaluation Date, Time and Location Date Performed: 08/27/23 Time Performed: 08:50 Patient Location: Day Surgery Unit Vital Signs Most Recent Imported Vital Signs: Most Recent Vital Signs Temp Pulse Resp BP Pulse Ox 36.7 C 82 16 140/88 97 08/27/23 08:34 08/27/23 08:34 08/27/23 08:34 08/27/23 08:34 08/27/23 08:34 Pain Score Most Recent Pain Score: Most Recent Pain Score Pain Level 0 08/27/23 08:34 Assessment Mental Status: Awake (Alert & Oriented to Patient Baseline) Airway and Respiratory Function: Patent airway with normal (patient baseline) respiratory exam Cardiovascular Function: Hemodynamically Stable Hydration Status: Adequately Hydrated Nausea & Vomiting: No Nausea or Vomiting Pain: Pt. Denies Any Pain Peripheral Nerve Block: Patient did not receive a nerve block
== END 2023-08-27 08:42 | disposition home or self-care (01) ==
LOC: SUR 06:59
PROVIDERS: PCP Family Medicine; Visit Provider Ophthalmology
PROC: (CPT 66984; principal; 2023-08-27 08:15)
DX: H25.012 Cortical age-related cataract, left eye (principal); H25.12 Age-related nuclear cataract, left eye; I10 Essential (primary) hypertension; Z98.41 Cataract extraction status, right eye
CPT/HCPCS: 66984; 00123; V2632; J2003

== ENCOUNTER 2023-10-21 12:53 | Outpatient (REF) | payer MEDICAID, SELFPAY ==
[2023-10-21 16:04] LABS: ESR 7 mm/hr (0-20)
[2023-10-21 16:05] LABS: HGB 14.6 g/dL (13.5-17.5)
[2023-10-21 16:30] LABS: ALT 37 U/L (16-63); AST 18 U/L (15-37); Albumin 4.1 g/dL (3.4-5.0); Alkaline Phosphatase 67 U/L (46-116); Anion Gap 6.9 mmol/L (3-11); BUN 17 mg/dL (7-18); Bilirubin, Total 0.6 mg/dL (0.2-1.0); CO2 29.1 mmol/L (21.0-32.0); CREATININE 0.8 mg/dL (0.70-1.30); Calcium 9.3 mg/dL (8.5-10.1); Chloride 107 mmol/L (98-107); Creatine Kinase 125 U/L (39-308); Estimated GFR 103.87 (mL/min/1.73m2); Glucose 54 mg/dL (74-106); Potassium 4.8 mmol/L (3.5-5.1); Sodium 143 mmol/L (136-145); TSH 1.69 uIU/Ml (0.36-3.74)
[2023-10-21 16:33] LABS: C-Reactive Protein < 0.50 mg/dL (<or=0.5)
[2023-10-25 17:35] LABS: Anaplasma phagocytophilum Negative (Negative); B. miyamotoi PCR Negative (Negative); Babesia divergens/MO-1 Negative (Negative); Babesia duncani Negative (Negative); Babesia microti Negative (Negative); Ehrlichia chaffeensis Negative (Negative); Ehrlichia ewingii/canis Negative (Negative); Ehrlichia muris eauclairensis Negative (Negative)
== END 2023-10-21 12:54 | disposition home or self-care (01) ==
LOC: NCHCN 12:53
PROVIDERS: PCP Family Medicine; Visit Provider Family Medicine
DX: R53.83 Other fatigue (principal)
CPT/HCPCS: 80053; 82550; 85652; 87798; 84443; 85014; 85018; 86140

== ENCOUNTER 2024-05-30 11:22 | Outpatient (CLI) | payer MEDICAID, SELFPAY ==
--- NOTE | 2024-05-30 10:45 | DI.RAD_ITS ---
Exam(s) XR KNEE RT 4V AP,LAT,MARIANNE,PAT EXAM: XR KNEE RT 4V AP,LAT,MARIANNE,PAT CLINICAL HISTORY: BILATERAL KNEE PAIN. TECHNIQUE: 2D digital imaging was performed. Three views. COMPARISON: CR XR KNEE LT 4V AP,LAT,MARIANNE,PAT from 05/30/2024 FINDINGS: BONES: No acute fracture is present. No bony destructive lesion is seen. JOINTS: Moderate narrowing of the medial femoral tibial joint. Mild periarticular spurring. The pat ellar femoral joint space is maintained. There is lateral patellar tilt . No joint effusion is seen . SOFT TISSUE: Normal. 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 DATA REPOSITORY: RADIATION DOSE DELIVERED:
--- NOTE | 2024-05-30 10:45 | DI.RAD_ITS ---
Exam(s) XR KNEE LT 4V AP,LAT,MARIANNE,PAT EXAM: XR KNEE LT 4V AP,LAT,MARIANNE,PAT CLINICAL HISTORY: BILATERAL KNEE PAIN. TECHNIQUE: 2D digital imaging was performed. Three views. COMPARISON: CR XR knee LT 2V AP,lat from 10/20/2018 FINDINGS: BONES: Intramedullary violet noted in the femur. No acute fracture is present. No bony destructive lesi on is seen. JOINTS: Moderate to severe narrowing of the medial femoral tibial joint. Mild periarticular spurring . Patellofemoral joint space is maintained. There is lateral patellar tilt. No joint effusion is s een. SOFT TISSUE: Normal. IMPRESSION: Moderate to severe degenerative changes of the medial femoral tibial joint. DATA REPOSITORY: RADIATION DOSE DELIVERED:
== END 2024-05-30 11:23 | disposition home or self-care (01) ==
LOC: DIORS 11:22
PROVIDERS: PCP Family Medicine; Visit Provider Physician Assistant
DX: M25.561 Pain in right knee (principal); M25.562 Pain in left knee
CPT/HCPCS: 73564

== ENCOUNTER 2024-06-17 21:27 | Emergency (ER) | payer MEDICAID, SELFPAY ==
[2024-06-17] VITALS (10 sets, daily range): BP systolic 158–163; BP diastolic 82–99; PULSE 59–71; RESP 8–18; TEMP 33.4; O2SAT 97–99
--- OUTSIDE RECORDS SUMMARY | 2024-06-17 21:37 | XMS_ITS | Encounter Summary ---
Author Organization [facility] Address [facility] [place] [address] Care Team Providers Care Charge Nurse Name Role Phone Delisa Reno MD Primary Care Provider [phone] Encounter Details Date Type Department Care Team (Late st Contact Info) Description 04/05/2020 [place] [phone] Franklin Flores MD [facility] [place] [address] Social History Tobacco Use Types Packs/Day Years Used Date Smoking Tobacco: Never Smokeless Tobacco: Former Alcohol Use Standard Drinks/Week Comments Not Currently 0 (1 standard drink = 0.6 oz pur e alcohol) Sex and Gender Information Value Date Recorded Sex Assigned at Not on file Gender Identity Not on file Sexual Orientation Not on file documented as of this encounter Plan of Treatment Not on file documented as of this encounter Visit Diagnoses Diagnosis Seropositive rheumatoid arthritis Rheumatoid arthritis documented in this encounter Care Teams Charge Nurse Relationship Specialty Start Date End Date Delisa Reno MD [address] [place] [address] PCP - General Family Medicine 12/09/18 documented as of this encounter
--- OUTSIDE RECORDS SUMMARY | 2024-06-17 21:37 | XMS_ITS | Encounter Summary ---
Author Organization [place] [address] Care Team Providers Care Inventory Specialist Name Role Phone Delisa Reno MD Primary Care Provider [phone] Encounter Details Date Type Department Care Team (Latest Contact Info) Description 04/16/2020 10:07 PM EST - 04/16/2020 11:59 PM EST [place] [id number] Discharge Disposition: Home Social History Tobacco Use Types Packs/Day Years Used Date Smoking Tobacco: Never Smokeless Tobacco: Former Alcohol Use Standard Drinks/Week Comments Not Currently 0 (1 standard drink = 0.6 oz pur e alcohol) Sex and Gender Information Value Date Recorded Sex Assigned at Not on file Gender Identity Not on file Sexual Orientation Not on file documented as of this encounter Medications at Time of Discharge Medication Sig Dispensed Refills Start Date End Date ondansetron (ZOFRAN-ODT) 8 mg Tablet, Rapid Dissolve as needed. 0 03/23/2019 BD ULTRA-FINE MINI PEN NEEDLE 31 gauge x 3/16 Needle USE 5 TIMES DAILY 0 12/29/2018 naproxen sodium (ANAPROX) 220 mg Tablet Take 220 mg by mouth daily. ibuprofen (ADVIL;MOTRIN) 200 mg Tablet Take 400 mg by mouth every 6 hours as needed for Pain. PROAIR HFA 90 mcg/actuation HFA Aerosol Inhaler TAKE 1 TO 2 INHALATIONS BY MOUTH EVERY 4 TO 6 HOURS NEEDED FOR WHEEZE 0 09/09/2018 ONETOUCH ULTRA BLUE TEST STRIP Strip TEST four times a day 0 10/27/2018 gabapentin (NEURONTIN) 300 mg Capsule 300 mg 4 times daily. 0 11/25/2018 levothyroxine (SYNTHROID) 175 mcg Tablet daily. 0 11/25/2018 lisinopril (PRINIVIL;ZESTRIL) 10 mg Tablet Take by mouth. 0 11/02/2018 pantoprazole (PROTONIX) 20 mg Tablet, Delayed Release (E.C.) daily. 0 11/21/2018 simvastatin (ZOCOR) 20 mg Tablet Take 1 by mouth at bedtime 0 12/06/2018 aspirin 81 mg Tablet, Chewable Take 81 mg by mouth daily. insulin aspart (NOVOLOG) 100 unit/mL injection 06/22/2006 insulin glargine (LANTUS) 100 unit/mL injection 06/22/2006 metHOTREXate 2.5 mg TabletIndications:Ser opositive rheumatoid arthritis,High risk medication use,Rheumatoid arthritis, involving unspecified site, unspecified rheumatoid factor presence Take 8 tablets by mouth once a week. 32 tablet 1 11/29/2019 05/14/2020 folic acid (FOLVITE) 1 mg Tablet Take 2 tablets by mouth daily. 180 tablet 3 03/20/2019 05/14/2020 documented as of this encounter Plan of Treatment Not on file documented as of this encounter Procedures Procedure Name Priority Date/Time Associated Diagnosis Comments SURGICAL PATHOLOGY REPORT Routine 04/16/2020 5:30 AM EST documented in this encounter Results * Surgical Pathology Report (04/16/2020 5:30 AM EST) Final Diagnosis [id number] ? Location: [facility] The signing pathologist has (i) examined the relevant preparation(s) for the specimen(s) and (ii) rendered or confirmed the diagnosis(es). . 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 Electronically signed by: ??Sal East MD Verified: ??04/26/2020 ?Pathologist Performed at: ??[facility] Dept. of Pathology, [place], [place] SPECIMEN(S) SUBMITTED A - Left plantar fibroma Referring Identifier: ??[id number] CLINICAL INFORMATION Left soft tissue mass. SPECIMEN PROCESSING A - Labeled/Fixative: Left plantar fibroma, formalin. Quantity/Size: Two, 1.0 x 0.6 x 0.5 cm and 3.5 x 1.8 x 1.1 cm. Tissue Description: Unoriented roughly ovoid fragments of yellow-white adipose and fibrotendinous tissue. The larger fragment is inked black and serially sectioned to demonstrate diffusely firm, focally whorled white cut surfaces. Sections/Processi ng: Inked, serially sectioned and promotional representative sections submitted in 2 cassettes as follows: ?A1: ??Intact smaller fragment and promotional representative larger, inked fragment ?A2: ??Additional larger inked fragment ??josephine 04/26/2020 1:10 PM EST [facility] SOFT TISSUE MASS / Unknown 04/16/2020 5:30 AM EST 04/16/2020 5:30 AM EST Narrative Resulting Agency Comment Spec In Lab / WKS Bettina Cid DPM PATHOLOGY/CYTOLOGY O RDERABLES [facility] [place] [address] documented in this encounter Visit Diagnoses Not on filedocumented in this encounter Care Teams Inventory Specialist Relationship Specialty Start Date End Date Delisa Reno MD [address] [place] [address] PCP - General Family Medicine 12/09/18 documented as of this encounter
--- OUTSIDE RECORDS SUMMARY | 2024-06-17 21:37 | XMS_ITS | Encounter Summary ---
Author Organization [facility] [place] [address] Care Team Providers Care Biofuels Processing Technician Name Role Phone Delisa Reno MD Primary Care Provider [phone] Reason for Visit * Reason Onset Date Comments Appointment 02/23/2020 Labs Only 02/23/2020 Encounter Details Date Type Department Care Team (Late st Contact Info) Description 02/23/2020 [place] [phone] Oz Amador RN Appointment; Labs Only Social History Tobacco Use Types Packs/Day Years Used Date Smoking Tobacco: Never Smokeless Tobacco: Former Alcohol Use Standard Drinks/Week Comments Not Currently 0 (1 standard drink = 0.6 oz pur e alcohol) Sex and Gender Information Value Date Recorded Sex Assigned at Not on file Gender Identity Not on file Sexual Orientation Not on file documented as of this encounter Miscellaneous Notes * Telephone Encounter - Oz Amador RN - 02/23/2020 12:38 PM EDT Patient calls, leaves message. States labs completed, have sent request for results. Asks about appointment, phone conference, will route message to scheduling. documented in this encounter Plan of Treatment Not on file documented as of this encounter Visit Diagnoses Not on filedocumented in this encounter Care Teams Biofuels Processing Technician Relationship Specialty Start Date End Date Delisa Reno MD [address] [place] [address] PCP - General Family Medicine 12/09/18 documented as of this encounter
--- OUTSIDE RECORDS SUMMARY | 2024-06-17 21:37 | XMS_ITS | Encounter Summary ---
Author Organization Formerly [facility] [place] [address] Care Team Providers Care Paint Process Engineer Name Role Phone Delisa Reno MD Primary Care Provider [phone] Encounter Details Date Type Department Care Team (Late st Contact Info) Description 05/03/2019 Tele[place] [address] Rosi Tobias LPN Social History Tobacco Use Types Packs/Day Years Used Date Smoking Tobacco: Never Smokeless Tobacco: Former Sex and Gender Information Value Date Recorded Sex Assigned at Not on file Gender Identity Not on file Sexual Orientation Not on file documented as of this encounter Miscellaneous Notes * Telephone Encounter - Rosi Tobias LPN - 05/03/2019 11:34 AM EST S: Patient's significant other, Honey, called, tearfully, with concerns about patient's care at [facility]. B: Honey states Douglas has osteomyelitis and arthritis. He had a surgery last May to remove a fatty tumor in his back. That surgeon has since left that hospital and patient is following up with somebody else. He has had three more back surgeries. Douglas is presently hospitalized for an infection at [facility]. Honey expresses concerns with his wound care; states the dressing was peeledoff too fast and the wound opened back up, there is a hole, it is being covered with gauze that does not cover the entire wound, and Douglas is getting crotch rot. She states Douglas is becoming more andmore depressed. Honey is tearful. She is calling from the bathroom. She is requesting he be transferred to [facility]. A: Significant other has concerns about care Douglas is receiving at [facility]. R: I discussed with Honey that I am not the appropriate person to facilitate a hospital transfer. I suggested she settle her emotions, find support for herself, and ask a nurse she has developed a good relationship with, to listen to her concerns, and possibly talk to a business case analyst about her request to transfer care to [facility]. Certainly, this depends on available beds. Honey voiced a good understanding and is in agreement with the plan. documented in this encounter Plan of Treatment Not on file documented as of this encounter Visit Diagnoses Not on filedocumented in this encounter Care Teams Paint Process Engineer Relationship Specialty Start Date End Date Delisa Reno MD [address] [place] [address] PCP - General Family Medicine 12/09/18 documented as of this encounter
--- OUTSIDE RECORDS SUMMARY | 2024-06-17 21:37 | XMS_ITS | Encounter Summary ---
Author Organization Count Includes [facility] [address] Care Team Providers Care Tank Truck Driver Name Role Phone Delisa Reno MD Primary Care Provider [phone] Reason for Visit * Reason Onset Date Comments Labs Only 05/24/2020 Encounter Details Date Type Department Care Team (Late st Contact Info) Description 05/24/2020 [place] [address] Luis Fernando Ramírez, RN Labs Only Social History Tobacco Use Types [...] encounter Miscellaneous Notes * Telephone Encounter - Luis Fernando Ramírez RN - 05/24/2020 3:22 PM EST RTC to Tarah @[facility] lab to clarify lab draw. documented in this encounter Plan of Treatment Not on file documented as of this encounter Visit Diagnoses Not on filedocumented in this encounter Care Teams Tank Truck Driver Relationship Specialty Start Date End Date Delisa Reno MD [address] [place] [address] PCP - General Family Medicine 12/09/18 documented as of this encounter
--- OUTSIDE RECORDS SUMMARY | 2024-06-17 21:37 | XMS_ITS | Encounter Summary ---
Author Organization [facility] [place] [address] Care Team Providers Care Commercial Credit Officer Name Role Phone Delisa Reno MD Primary Care Provider [phone] Reason for Visit * Reason Onset Date Comments Labs Only 05/22/2020 Encounter Details Date Type Department Care Team (Late st Contact Info) Description 05/22/2020 Telephone [place] [address] Luis Fernando Ramírez, RN Labs [...] Encounter - Luis Fernando Ramírez RN - 05/22/2020 9:10 AM EST RTC to Douglas and let him know that I faxed the lab request to [facility], and he states that he will go and have them drawn. documented in this encounter Plan of Treatment Not on file documented as of this encounter Visit Diagnoses Not on filedocumented in this encounter Care Teams Commercial Credit Officer Relationship Specialty Start Date End Date Delisa Reno MD [address] [place] [address] PCP - General Family Medicine 12/09/18 documented as of this encounter
--- OUTSIDE RECORDS SUMMARY | 2024-06-17 21:37 | XMS_ITS | Encounter Summary ---
Author Organization [facility] [place] [address] Care Team Providers Care Wild Animal Caretaker Name Role Phone Delisa Reno MD Primary Care Provider [phone] Reason for Visit * Reason Onset Date Comments Medication Refill 11/28/2019 Encounter Details Date Type Department Care Team (Late st Contact Info) Description 11/28/2019 [place] [phone] Allyssa Pino, RN Social History Tobacco Use Types Packs/Day Years [...] on filedocumented in this encounter Care Teams Wild Animal Caretaker Relationship Specialty Start Date End Date Delisa Reno MD [address] [place] [address] PCP - General Family Medicine 12/09/18 documented as of this encounter
--- OUTSIDE RECORDS SUMMARY | 2024-06-17 21:37 | XMS_ITS | Encounter Summary ---
Author Organization [facility] [place] [address] Care Team Providers Care Merchant Banker Name Role Phone Delisa Reno MD Primary Care Provider [phone] Encounter Details Date Type Department Care Team (Late st Contact Info) Description 06/06/2019 Telephone [place] [address] Amber Means Social History Tobacco Use Types Packs/Day Years [...] on filedocumented in this encounter Care Teams Merchant Banker Relationship Specialty Start Date End Date Delisa Reno MD [address] [place] [address] PCP - General Family Medicine 12/09/18 documented as of this encounter
--- OUTSIDE RECORDS SUMMARY | 2024-06-17 21:37 | XMS_ITS | Encounter Summary ---
Author Organization [facility] [place] [address] Care Team Providers Care Trimmer And Borer Machine Operator Name Role Phone Delisa Reno MD Primary Care Provider Encounter Details Date Type Department Care Team (Late st Contact Info) Description 04/05/2020 Telephone [place] [address] Kimberley Cronin Social History Tobacco Use Types Packs/Day Years [...] on filedocumented in this encounter Care Teams Trimmer And Borer Machine Operator Relationship Specialty Start Date End Date Delisa Reno MD [address] [place] [address] PCP - General Family Medicine 12/09/18 documented as of this encounter
--- OUTSIDE RECORDS SUMMARY | 2024-06-17 21:37 | XMS_ITS | Encounter Summary ---
Author Organization [facility] Address [facility] [place] [address] Care Team Providers Care Tumbler Machine Operator Helper Name Role Phone Delisa Reno MD Primary Care Provider [phone] Encounter Details Date Type Department Care Team (Latest Contact Info) Description 06/14/2020 12:30 PM EST TH Visit (TeleHealth) Rheumatology at [facility] [place] [address] Franklin Flores MD [facility] [place] [address] Seropositive rheumatoid arthritis; High risk medication use; Inflammatory arthropathy; Seropositive erosive rheumatoid arthritis; Chronic bilateral low back pain without sciatica Social History Tobacco Use Types Packs/Day Years Used Date Smoking Tobacco: Never Smokeless Tobacco: Former Alcohol Use Standard Drinks/Week Comments Not Currently 0 (1 standard drink = 0.6 oz pur e alcohol) Sex and Gender Information Value Date Recorded Sex Assigned at Not on file Gender Identity Not on file Sexual Orientation Not on file documented as of this encounter Progress Notes * Franklin Flores MD - 06/14/2020 12:30 PM EST Rheumatology Follow- Up Note RheumHx Sero+RA od Claudia on MTX patient last note not available Recent Lipoma Surgery with complications was on abx off MTX for about a month History of fractured vertebrae in the lower back HCQ gave him arm locking up Interval Hx Douglas Tellez Jr. is a 55 y.o. male who presents today for evalution Sero+ RA. He is off 2 months MTX 2/2 SE bialteral UQ pain. No hx of TB, HIV, MS in the family or personal. Hep 2019 wnl Does not wna tot go on medication at this time. Overall his dz activity shanel been low. No swelling redness or warmth. MS < 30 minutes. Lower back Pain ms< 30 minutes presen tlal the time. Does not wake him up in the middle the night does not alternate sides worse with activity been going on for approximately 3 weeks has a historyof known back disease followed by a chiropractor. No red flag symptoms such as numbness and tingling in the genital area saddle anesthesia, paresthesia, weakness night sweats or fevers. ROS 11 pnt wnl : Physical Exam: Assessment and plan : Douglas Tellez Jr. is a 55 y.o. male who presents today as a transfer of care from Dr. Taylor's office for seropositive RA failed MTX and HCQ 2/2 SE SPRA-with erosive disease-(failed MTX and HCQ will get blood work discussed LEflunamide and TNF inhibitor. -He will get blood work Hepatitis panel WNL in 2019 HIV T TB within normal limits -Does not want to go on Enbrel or leflunomide at this time mood drug monitoring how they work. Advised to go to the [employer] rheumatology website to read about the medications but will have the nursing mail him a copy of each drug -Not using NSAIDs or Tylenol. Feels diet changes been most effective. -Disease activity is low at this time will reevaluate. Lower back pain though rare and RA is a possibility-has history of degenerative disc disease seen on hip x-ray dedicated x-ray lumbar spine may need MRI.- Consider short course of muscle relaxant but has not tried NSAIDs or Tylenol. Significant improvement in overall symptoms after stopping dairy ABd pain resolved Off MTX Labs sent To PCP office Orders Placed This Encounter Procedures ??? XR Lumbar Spine 2 Or 3 Views (Generic) ??? CRP, acute inflammation ??? CBC (with Diff) ??? Hepatic Function Panel ??? Sedimentation rate ??? Creatinine Return in about 8 weeks (around 08/09/2020) for In Person. documented in this encounter Plan of Treatment Not on file documented as of this encounter Visit Diagnoses Diagnosis Seropositive rheumatoid arthritis Rheumatoid arthritis High risk medication use Encounter for long-term (current) use of other medications Inflammatory arthropathy Arthropathy, unspecified, site unspecified Seropositive erosive rheumatoid arthritis Chronic bilateral low back pain without sciatica documented in this encounter Care Teams Tumbler Machine Operator Helper Relationship Specialty Start Date End Date Delisa Reno MD [address] [place] [address] PCP - General Family Medicine 12/09/18 documented as of this encounter
--- OUTSIDE RECORDS SUMMARY | 2024-06-17 21:37 | XMS_ITS | Encounter Summary ---
Author Organization [facility] [place] [address] Care Team Providers Care Freelance Interpreter/Translator Name Role Phone Delisa Reno MD Primary Care Provider [phone] Reason for Visit * Reason Comments Medication Refill Encounter Details Date Type Department Care Team (Late st Contact Info) Description 11/29/2019 [place] [address] Scott Butler MD Social History Tobacco Use Types Packs/Day Years [...] on filedocumented in this encounter Care Teams Freelance Interpreter/Translator Relationship Specialty Start Date End Date Delisa Reno MD [address] [place], [place] [address] PCP - General Family Medicine 12/09/18 documented as of this encounter
--- OUTSIDE RECORDS SUMMARY | 2024-06-17 21:37 | XMS_ITS | Encounter Summary ---
Author Organization [facility] Address [facility] [place] [address] Care Team Providers Care Linter Saw Sharpener Name Role Phone Delisa Reno MD Primary Care Provider [phone] Encounter Details Date Type Department Care Team (Late st Contact Info) Description 12/17/2021 Ancillary Procedure Radiology Library at [facility] [place] [place] [address] Delisa Reno MD [address] [place] [address] Social History Tobacco Use Types Packs/Day Years [...] Procedure Name Priority Date/Time Associated Diagnosis Comments FILM LIBRARY STORAGE ONLY ULTRASOUND STUDY Routine 12/17/2021 12:00 AM EDT documented in this encounter Results * Film Library- Storage Only Ultrasound Study (12/17/2021 12:00 AM EDT) Narrative TAI - 12/24/2021 9:38 PM EDT This exam is auto-finalizing. It's purpose is for storage only. Delisa Reno MD IMG FILM LIBRARY ORD ERABLES [place] documented in this encounter Visit Diagnoses Not on filedocumented in this encounter Care Teams Linter Saw Sharpener Relationship Specialty Start Date End Date Delisa Reno MD [address] [place] [address] PCP - General Family Medicine 12/09/18 documented as of this encounter
--- OUTSIDE RECORDS SUMMARY | 2024-06-17 21:37 | XMS_ITS | Encounter Summary ---
Author Organization [facility] Address [facility] [place] [address] Care Team Providers Care Tennis Ball Cover Cementer Name Role Phone Delisa Reno MD Primary Care Provider [phone] Reason for Visit * Reason Onset Date Comments Appointment 11/29/2019 Encounter Details Date Type Department Care Team (Late st Contact Info) Description 11/29/2019 Tele[place] [address] Allyssa Pino RN Appointment Social History Tobacco Use Types Packs/Day Years [...] encounter Miscellaneous Notes * Telephone Encounter - Allyssa Pino RN - 12/07/2019 4:17 PM EDT Images from the original note were not included. Franklin Flores MD sent to Allyssa Pino RN Caller: Unspecified (1 week ago) ?? Only received half the labs labs were relatively normal except very mild non significant CRP franklin Previous Messages Forwarded message to secretaries to request the rest of labs. * Telephone Encounter - Allyssa Pino RN - 12/04/2019 2:57 PM EDT Douglas calls to report labs have been done and he is asking for results. * Telephone Encounter - Allyssa Pino RN - 11/29/2019 3:04 PM EDT Douglas calls to ask his provider to call work phone number at [phone] for TH visit. documented in this encounter Plan of Treatment Not on file documented as of this encounter Visit Diagnoses Not on filedocumented in this encounter Care Teams Tennis Ball Cover Cementer Relationship Specialty Start Date End Date Delisa Reno MD [address] [place] [address] PCP - General Family Medicine 12/09/18 documented as of this encounter
--- OUTSIDE RECORDS SUMMARY | 2024-06-17 21:37 | XMS_ITS | Encounter Summary ---
Author Organization [facility] [place] [address] Care Team Providers Care Osteopathic Neurologist Name Role Phone Delisa Reno MD Primary Care Provider [phone] Reason for Referral * Diagnostic Test (Routine) - Closed Specialty Diagnoses / Procedures Referred By Genesis vega Referred To Contact Diagnoses Iliac artery aneurysm Procedures AAA Duplex, Complete/Bilateral Bon Benedict APRN [facility] [place] [address] [facility] [address] [place] [address] Referral ID Status Reason Start Date Expiration Date V isits Requested Visits Authorized [id number] Closed Specialty Service Requested 12/25/2021 12/25/2022 1 1 Encounter Details Date Type Department Care Team (Late st Contact Info) Description 12/25/2021 Orders [place] [address] Bon Benedict APRN Iliac artery aneurysm Social History Tobacco Use Types Packs/Day Years [...] on file documented as of this encounter Results * AAA Duplex, Complete/Bilateral (02/18/2022 8:35 AM EDT) VB Text Report Department: Vascular Surgery Lab Patient: [id number] (CASTRO TELLEZ) CPT: 88192 Referring Physician: BON BENEDICT APRN ?? Indications: enlarged bilateral proximal common iliac arteries on OSH duplex, family hx of aneurysms, ? size Findings: Bee Renal Aorta ? PSV (cm/s): 93 ? EDV (cm/s): 24 ? Diam AP (cm): 2.1 ? Diam Lateral (cm): 2.3 Infra Renal Aorta ? PSV (cm/s): 105 ? EDV (cm/s): 26 ? Diam AP (cm): 2.1 ? Diam Lateral (cm): 2.3 Distal Aorta ? PSV (cm/s): 96 ? EDV (cm/s): 5 ? Diam AP (cm): 1.9 ? Diam Lateral (cm): 2.0 Common Iliac Artery, Proximal, Right ? PSV (cm/s): 108 ? EDV (cm/s): 0 ? Diam AP (cm): 1.1 ? Diam Lateral (cm): 1.1 Common Iliac Artery, Proximal, Left ? PSV (cm/s): 122 ? EDV (cm/s): 0 ? Diam AP (cm): 1.1 ? Diam Lateral (cm): 1.3 Interpretation : Patent abdominal aorta with no evidence of an infrarenal aortic aneurysm. Patent proximal common iliac arteries without evidence of stenosis or aneurysm. Comparison: No previous study in our vascular lab database for comparison. Electronically Signed by: MANUEL BRICEÑO MD on 2022-02-19 09:41:59 AM [facility] VB Text Report End of Report [facility] 02/18/2022 8:35 AM EDT Bon Benedict APRN VASCULAR ORDERABLE S [facility] documented in this encounter Visit Diagnoses Diagnosis Iliac artery aneurysm Aneurysm of iliac artery documented in this encounter Care Teams Osteopathic Neurologist Relationship Specialty Start Date End Date Delisa Reno MD [address] [place] [address] PCP - General Family Medicine 12/09/18 documented as of this encounter
--- OUTSIDE RECORDS SUMMARY | 2024-06-17 21:37 | XMS_ITS | Encounter Summary ---
Author Organization [facility] Address [facility] [place] [address] Care Team Providers Care Infrastructure Director Name Role Phone Delisa Reno MD Primary Care Provider [phone] Encounter Details Date Type Department Care Team (Latest Contact Info) Description 05/14/2020 2:00 PM EST TH Visit (TeleHealth) Rheumatology at [facility] [place] [address] Franklin Flores MD [facility] DR RHEUMATOLOGY [place] [id number] Seropositive rheumatoid arthritis; High risk medication use; Inflammatory arthropathy; Seropositive erosive rheumatoid arthritis Social History Tobacco Use Types Packs/Day Years [...] Progress Notes * Franklin Flores MD - 05/14/2020 2:00 PM EST Rheumatology Follow- Up Note RheumHx Sero+RA od Dr Taylor on MTX patient last note not available Recent Lipoma Surgery with complications was on abx off MTX for about a month History of fractured vertebrae in the lower back HCQ gave him arm locjking up Interval Hx Douglas DarbyTellezmarianne Reinoso is a 54 y.o. male who presents today for evalution Sero+ RA. He is off 2 months MTX 2/2 SE bialteral UQ pain. No hx of TB, HIV, MS in the family or personal. Overall his dz activity shanel been low. No swelling redness or warmth. MS < 30 minutes No swelling redness or warmth no fever chills or night sweats no chronic dry eyes or mouth overall has had no recent swelling redness Warmth of any of the joints ROS 11 pnt wnl : Physical Exam: Assessment and plan : Douglas Tellez Jr. is a 54 y.o. male who presents today as a transfer of care from Dr. Taylor's office for seropositive RA failed MTX and HCQ 2/2 SE SPRA- (failed MTX and HCQ will get blood work discussed LEflunamide and TNF inhibitor. -He will get blood work Hepatitis panel WNL - Get HIV and TB - he will read about the emdications once labs are back will phamracy review ABd pain resolved Off MTX Labs sent To PCP office Orders Placed This Encounter Procedures ??? CRP, acute inflammation ??? CBC (with Diff) ??? Creatinine ??? Hepatic Function Panel ??? Sedimentation rate ??? QuantiFERON-TB Gold ??? HIV Screen, 4th Generation ([facility]/CGP/APD/NL) Return in about 4 weeks (around 06/11/2020) for Telehealth. documented in this encounter Plan of Treatment Not on file documented as of this encounter Visit Diagnoses Diagnosis Seropositive rheumatoid arthritis Rheumatoid arthritis High risk medication use Encounter for long-term (current) use of other medications Inflammatory arthropathy Arthropathy, unspecified, site unspecified Seropositive erosive rheumatoid arthritis documented in this encounter Care Teams Infrastructure Director Relationship Specialty Start Date End Date Delisa Reno MD [address] [place] [address] PCP - General Family Medicine 12/09/18 documented as of this encounter
--- OUTSIDE RECORDS SUMMARY | 2024-06-17 21:37 | XMS_ITS | Encounter Summary ---
Author Organization [facility] Address [facility] [place] [address] Care Team Providers Care Paving Machine Operator Name Role Phone Delisa Reno MD Primary Care Provider [phone] Encounter Details Date Type Department Care Team (Late st Contact Info) Description 04/05/2020 [place] [address] Franklin Flores MD [facility] [place] [address] Social History Tobacco Use Types Packs/Day Years [...] on filedocumented in this encounter Care Teams Paving Machine Operator Relationship Specialty Start Date End Date Delisa Reno MD [address] [place] [address] PCP - General Family Medicine 12/09/18 documented as of this encounter
--- OUTSIDE RECORDS SUMMARY | 2024-06-17 21:37 | XMS_ITS | Encounter Summary ---
Author Organization [facility] [place] [address] Care Team Providers Care Design Studio Consultant Name Role Phone Delisa Reno MD Primary Care Provider [phone] Reason for Visit * Reason Onset Date Comments Labs Only 04/23/2020 Appointment 04/23/2020 Encounter Details Date Type Department Care Team (Late st Contact Info) Description 04/23/2020 [place] [address] Oz Amador RN Labs Only; Appointment Social History Tobacco Use Types Packs/Day [...] Telephone Encounter - Oz Amador RN - 04/23/2020 8:54 AM EST Patient calls to report labs to be completed today at PCP. Sx has been completed. Off mtx for approx 5-6 weeks. Have sent request for results. Patient transferred to scheduling as well for appointment needs. documented in this encounter Plan of Treatment Not on file documented as of this encounter Visit Diagnoses Not on filedocumented in this encounter Care Teams Design Studio Consultant Relationship Specialty Start Date End Date Delisa Reno MD [address] [place] [address] PCP - General Family Medicine 12/09/18 documented as of this encounter
--- OUTSIDE RECORDS SUMMARY | 2024-06-17 21:37 | XMS_ITS | Encounter Summary ---
Author Organization [facility] [place] [address] Care Team Providers Care Equipment Sales Specialist Name Role Phone Delisa Reno MD Primary Care Provider [phone] Reason for Visit * Reason Onset Date Comments Medication Refill 05/30/2019 Encounter Details Date Type Department Care Team (Late st Contact Info) Description 05/30/2019 [place] [address] Oz Amador, RN Social History Tobacco Use Types Packs/Day [...] on filedocumented in this encounter Care Teams Equipment Sales Specialist Relationship Specialty Start Date End Date Delisa Reno MD [address] [place] [address] PCP - General Family Medicine 12/09/18 documented as of this encounter
--- OUTSIDE RECORDS SUMMARY | 2024-06-17 21:37 | XMS_ITS | Encounter Summary ---
Author Organization [facility] [place] [address] Care Team Providers Care Manager Of Hospital Name Role Phone Delisa Reno MD Primary Care Provider [phone] Reason for Referral * Consultation (Routine) - Closed Specialty Diagnoses / Procedures Referred By Genesis vega Referred To Contact Vascular Surgery Diagnoses Family history of ischemic heart disease OVERHEAD CRANE INSPECTOR / PA / / JOAO , Delisa Gaytan MD [address] [place] [address] [facility] Vascular Surg [address] [place] [address] Referral ID Status Reason Start Date Expiration Date V isits Requested Visits Authorized [id number] Closed Consult, Test & Treat 12/24/2021 12/24/2022 1 1 Encounter Details Date Type Department Care Team (Latest Contact Info) Description 12/24/2021 Transcribe Orders eDH Incoming Referrals [phone] Delisa Reno MD [address] [place] [address] Family history of ischemic heart disease Social History Tobacco Use Types Packs/Day Years Used Date Smoking Tobacco: Never Smokeless Tobacco: Former Alcohol Use Standard Drinks/Week Comments Not Currently 0 (1 standard drink = 0.6 oz pur e alcohol) Sex and Gender Information Value Date Recorded Sex Assigned at Not on file Gender Identity Not on file Sexual Orientation Not on file documented as of this encounter Plan of Treatment Scheduled Referrals Name Type Priority Associated Diagnoses Orde r Schedule Referral to Vascular Surgery Outpatient Referral Routine Family history of ischemic heart disease Ordered: 12/24/2021 documented as of this encounter Visit Diagnoses Diagnosis Family history of ischemic heart disease documented in this encounter Care Teams Manager Of Hospital Relationship Specialty Start Date End Date Delisa Reno MD [address] [place] [address] PCP - General Family Medicine 12/09/18 documented as of this encounter
--- OUTSIDE RECORDS SUMMARY | 2024-06-17 21:37 | XMS_ITS | Encounter Summary ---
Author Organization [facility] Address [facility] [place] [address] Care Team Providers Care Environmental Compliance Engineer Name Role Phone Delisa Reno MD Primary Care Provider [phone] Encounter Details Date Type Department Care Team (Latest Contact Info) Description 11/29/2019 3:30 PM EDT TH Visit (TeleHealth) Rheumatology at [facility] [place] [place] [address] Franklin Flores MD [facility] [place] [address] Seropositive rheumatoid arthritis; High risk medication use; Rheumatoid arthritis, involving unspecified site, unspecified rheumatoid factor presence Social History Tobacco Use Types Packs/Day Years [...] Progress Notes * Franklin Flores MD - 11/29/2019 3:30 PM EDT Rheumatology Follow- Up Note RheumHx Sero+RA od Claudia on MTX patient last note not available Recent Lipoma Surgery with complications was on abx off MTX for about a month History of fractured vertebrae in the lower back Interval Hx Douglas Tellez JrVicente is a 54 y.o. male who presents today for evalution Sero+ RA. No swelling redness or warmth. MS < 30 minutes DZ activity slightly increased with being off MTX of a months post complications. He restarted MTX labs reflect only 2 weeks dose. Dz activity is low. No swelling redness or warmth no fever chills or night sweats no chronic dry eyes or mouth overall has had no recent swelling redness Warmth of any of the joints ROS remainder WNL 11 pnt : Past Medical History: Diagnosis Date ??? Diabetes mellitus Patient Active Problem List Diagnosis Date Noted ??? Seropositive erosive rheumatoid arthritis 04/05/2019 Past Surgical History: Procedure Laterality Date ??? LIPOMA RESECTION No family history on file. Social History Socioeconomic History ??? Marital status: Single Spouse name: Not on file ??? Number of children: Not on file ??? Years of education: Not on file ??? Highest education level: Not on file Occupational History ??? Not on file Social Needs ??? Financial resource strain: Not on file ??? Food insecurity Worry: Not on file Inability: Not on file ??? Transportation needs Medical: Not on file Non-medical: Not on file Tobacco Use ??? Smoking status: Never Smoker ??? Smokeless tobacco: Former User Substance and Sexual Activity ??? Alcohol use: Not Currently ??? Drug use: Not on file ??? Sexual activity: Not on file Lifestyle ??? Physical activity Days per week: Not on file Minutes per session: Not on file ??? Stress: Not on file Relationships ??? Social connections Talks on phone: Not on file Gets together: Not on file Attends temple service: Not on file Active member of club or organization: Not on file Attends meetings of clubs or organizations: Not on file Relationship status: Not on file ??? Intimate partner violence Fear of current or ex partner: Not on file Emotionally abused: Not on file Physically abused: Not on file Forced sexual activity: Not on file Other Topics Concern ??? Not on file Social History Narrative ??? Not on file Current Outpatient Medications Medication Sig Dispense Refill ??? metHOTREXate 2.5 mg Tablet Take 8 tablets by mouth once a week. 32 tablet 1 ??? ondansetron (ZOFRAN-ODT) 8 mg Tablet, Rapid Dissolve as needed. 0 ??? BD ULTRA-FINE MINI PEN NEEDLE 31 gauge x 3/16 Needle USE 5 TIMES DAILY 0 ??? naproxen sodium (ANAPROX) 220 mg Tablet Take 220 mg by mouth daily. ??? ibuprofen (ADVIL;MOTRIN) 200 mg Tablet Take 400 mg by mouth every 6 hours as needed for Pain. ??? folic acid (FOLVITE) 1 mg Tablet Take 2 tablets by mouth daily. 180 tablet 3 ??? PROAIR HFA 90 mcg/actuation HFA Aerosol Inhaler TAKE 1 TO 2 INHALATIONS BY MOUTH EVERY 4 TO 6 HOURS NEEDED FOR WHEEZE 0 ??? ONETOUCH ULTRA BLUE TEST STRIP Strip TEST four times a day 0 ??? gabapentin (NEURONTIN) 300 mg Capsule 300 mg 4 times daily. 0 ??? levothyroxine (SYNTHROID) 175 mcg Tablet daily. 0 ??? lisinopril (PRINIVIL;ZESTRIL) 10 mg Tablet Take by mouth. 0 ??? pantoprazole (PROTONIX) 20 mg Tablet, Delayed Release (E.C.) daily. 0 ??? simvastatin (ZOCOR) 20 mg Tablet Take 1 by mouth at bedtime 0 ??? aspirin 81 mg Tablet, Chewable Take 81 mg by mouth daily. ??? insulin aspart (NOVOLOG) 100 unit/mL injection (Patient taking differently: Inject subcutaneously. Sliding scale TID) ??? insulin glargine (LANTUS) 100 unit/mL injection (Patient taking differently: Inject subcutaneously. 28 u a.m.- 10 U night) No current facility-administered medications for this visit. Current Outpatient Medications on File Prior to Visit Medication Sig Dispense Refill ??? metHOTREXate 2.5 mg Tablet Take 8 tablets by mouth once a week. 32 tablet 1 ??? ondansetron (ZOFRAN-ODT) 8 mg Tablet, Rapid Dissolve as needed. 0 ??? BD ULTRA-FINE MINI PEN NEEDLE 31 gauge x 3/16 Needle USE 5 TIMES DAILY 0 ??? naproxen sodium (ANAPROX) 220 mg Tablet Take 220 mg by mouth daily. ??? ibuprofen (ADVIL;MOTRIN) 200 mg Tablet Take 400 mg by mouth every 6 hours as needed for Pain. ??? folic acid (FOLVITE) 1 mg Tablet Take 2 tablets by mouth daily. 180 tablet 3 ??? PROAIR HFA 90 mcg/actuation HFA Aerosol Inhaler TAKE 1 TO 2 INHALATIONS BY MOUTH EVERY 4 TO 6 HOURS NEEDED FOR WHEEZE 0 ??? ONETOUCH ULTRA BLUE TEST STRIP Strip TEST four times a day 0 ??? gabapentin (NEURONTIN) 300 mg Capsule 300 mg 4 times daily. 0 ??? levothyroxine (SYNTHROID) 175 mcg Tablet daily. 0 ??? lisinopril (PRINIVIL;ZESTRIL) 10 mg Tablet Take by mouth. 0 ??? pantoprazole (PROTONIX) 20 mg Tablet, Delayed Release (E.C.) daily. 0 ??? simvastatin (ZOCOR) 20 mg Tablet Take 1 by mouth at bedtime 0 ??? aspirin 81 mg Tablet, Chewable Take 81 mg by mouth daily. ??? insulin aspart (NOVOLOG) 100 unit/mL injection (Patient taking differently: Inject subcutaneously. Sliding scale TID) ??? insulin glargine (LANTUS) 100 unit/mL injection (Patient taking differently: Inject subcutaneously. 28 u a.m.- 10 U night) No current facility-administered medications on file prior to visit. Allergies Allergen Reactions ??? Buster Inhibitors Physical Exam: Assessment: Douglas Tellez Jr. is a 54 y.o. male who presents today as a transfer of care from Dr. Taylor's office for seropositive RA on methotrexate 20 mg in divided doses weekly, folic acid and off HCQ because of neuropathic arm pain. Unlikely this was HCQ but patient symptoms t appear to low disease activity On MTX alone based on my assessment in remission with a significant amount osteoarthritis changes. XR from last visit show healing erosion. He had restarted MTX have a CMP post restart have reuqested the CBC would like a repat this week because he had been on MTX for 2 weeks at 8 tabs Dz activity is low Reviewed MTX toxicities Plan or Recommendation : Patient has been called and the following medications have been changed: Medication ordered or changed during this encounter, will not show discontinued medications Medications ??? metHOTREXate 2.5 mg Tablet Sig: Take 8 tablets by mouth once a week. Dispense: 32 tablet Refill: 1 May divide dose and take 4 tabs in am and 4 tabs in pm. Instruction were given as to next lab draw and patient verbalized understanding of these instruction. Orders Placed This Encounter Procedures ??? CBC (with Diff) ??? Comprehensive metabolic panel (non-fasting) ??? CRP, acute inflammation ??? Sedimentation rate Repeat labs in 4 weeks Franklin Flores MD documented in this encounter Plan of Treatment Not on file documented as of this encounter Visit Diagnoses Diagnosis Seropositive rheumatoid arthritis Rheumatoid arthritis High risk medication use Encounter for long-term (current) use of other medications Rheumatoid arthritis, involving unspecified site, unspecified rheumatoid factor presence documented in this encounter Care Teams Environmental Compliance Engineer Relationship Specialty Start Date End Date Delisa Reno MD [address] [place] [address] PCP - General Family Medicine 12/09/18 documented as of this encounter
--- OUTSIDE RECORDS SUMMARY | 2024-06-17 21:37 | XMS_ITS | Encounter Summary ---
Author Organization [facility] Address [facility] [place] [address] Care Team Providers Care Head Loft Worker Name Role Phone Delisa Reno MD Primary Care Provider [phone] Reason for Visit * Consultation (Routine) - Closed Specialty Diagnoses / Procedures Referred By Genesis vega Referred To Contact Vascular Surgery Diagnoses Family history of ischemic heart disease GUN CLUB MANAGER / PA / / JOAO , Delisa Gaytan MD [address] [place] [address] [facility] [place] [place] Vascular Surg [address] [place] [address] Referral ID Status Reason Start Date Expiration Date V isits Requested Visits Authorized [id number] Closed Consult, Test & Treat 12/24/2021 12/24/2022 1 1 Encounter Details Date Type Department Care Team (Late st Contact Info) Description 02/18/2022 9:30 AM EDT Office Visit [place] [address] Patti Card MD [facility] [place] [address] Family history of abdominal aortic aneurysm Social History Tobacco Use Types Packs/Day Years Used Date Smoking Tobacco: Never Smokeless Tobacco: Former Alcohol Use Standard Drinks/Week Comments Not Currently 0 (1 standard drink = 0.6 oz pur e alcohol) Sex and Gender Information Value Date Recorded Sex Assigned at Not on file Gender Identity Not on file Sexual Orientation Not on file documented as of this encounter Last Filed Vital Signs Vital Sign Reading Time Taken Comments Blood Pressure 129/72 02/18/2022 9:27 AM EDT Pulse 62 02/18/2022 9:27 AM EDT Temperature - - Respiratory Rate - - Oxygen Saturation - - Inhaled Oxygen Concentration - - Weight 103 kg (227 lb) 02/18/2022 9:27 AM EDT pt reported Height 172.7 cm (5' 8) 02/18/2022 9:27 AM EDT p t reported Body Mass Index 34.52 02/18/2022 9:27 AM EDT documented in this encounter Progress Notes * Patti Card MD - 02/18/2022 9:30 AM EDT Images from the original note were not included. Formerly [facility] [place] [address] [place] [address] OUTPATIENT VASCULAR SURGERY INITIAL CONSULT SERVICE DATE: 02/18/2022 SERVICE TIME: 9:58 AM PRIMARY CARE PHYSICIAN: Delisa Reno MD REFERRING PROVIDER: Delisa Reno MD [address] [address] Consult requested for an opinion regarding the evaluation and treatment of the above. My final impression and recommendations will be communicated back to the requesting physician by way of the shared medical record or letter via US mail. Subjective CHIEF COMPLAINT/HISTORY OF PRESENT ILLNESS: Chief Complaint: Iliac artery ectasia History of Present Illness: Douglas Tellez Jr. is a 56 y.o. male referred for an opinion regarding management of iliac artery ectasia. Patient has a family history of aneurysm in his father in his 50s that required repair. His father was a heavy smoker. He also has a paternal grandfather with a history of cerebral aneurysm. Patient denies any other personal or family history of aneurysm, dissection, or unexplained sudden . Patient is a never smoker, though, as he is had heavy secondhand smoke from his family. Patient denies past history of TIA/stroke, history of numbness or weakness of upper of lower extremities, amaurosis fugax, or speech or word finding difficulties. Denies any claudication, rest pain, or tissue loss. Currently on Asa 81 mg and simvastatin. He is a type I diabetic PAST MEDICAL/SURGICAL/FAMILY/SOCIAL HISTORY Past Medical History: Diagnosis Date ??? Primary hypertension ??? Type 1 diabetes mellitus Past Surgical History: Procedure Laterality Date ??? LIPOMA RESECTION ??? ORIF FEMUR DECOMPRESSION Left Family History Problem Relation Age of Onset ??? Abdominal Aortic Aneurysm Father ??? Cerebral Aneurysm Maternal Grandfather Social History Tobacco Use ??? Smoking status: Never Smoker ??? Smokeless tobacco: Former User Substance Use Topics ??? Alcohol use: Not Currently ??? Drug use: Never Current Outpatient Medications Medication Sig Dispense Refill ??? vardenafiL (LEVITRA) 20 mg Tablet Levitra 20 mg tablet TAKE 1 TABLET (20 MG) BY ORAL ROUTE ONCE DAILY NEEDED APPROXIMATELY 1 HOUR BEFORE SEXUAL ACTIVITY ??? ondansetron (ZOFRAN-ODT) 8 mg Tablet, Rapid Dissolve as needed. 0 ??? BD ULTRA-FINE MINI PEN NEEDLE 31 gauge x 3/16 Needle USE 5 TIMES DAILY 0 ??? naproxen sodium (ANAPROX) 220 mg Tablet Take 220 mg by mouth daily. ??? PROAIR HFA 90 mcg/actuation HFA Aerosol Inhaler TAKE 1 TO 2 INHALATIONS BY MOUTH EVERY 4 TO 6 HOURS NEEDED FOR WHEEZE 0 ??? Scopial FashionUCH ULTRA BLUE TEST STRIP Strip TEST four [...] 1 by mouth at bedtime 0 ??? insulin aspart (NOVOLOG) 100 unit/mL injection ??? insulin glargine (LANTUS) 100 unit/mL injection ??? ibuprofen (ADVIL;MOTRIN) 200 mg Tablet Take 400 mg by mouth every 6 hours as needed for Pain. ??? aspirin 81 mg Tablet, Chewable Take 81 mg by mouth daily. No current facility-administered medications for this visit. Allergies Allergen Reactions ??? Hydroxychloroquine Sulf (Bulk) Arm locking ??? Methotrexate Sodium (Pf) Abdominal pain bilateral under the rib cage. Resolved when stopped ??? Buster Inhibitors COMPLETE REVIEW OF SYSTEMS All other reviewed and negative other than HPI. Objective PHYSICAL EXAM Physical Exam Performed BP 129/72 (BP Location (NBP): Left arm, Patient Position: Sitting, BP Cuff Sizes: Adult (25-34 cm)) Pulse 62 Ht 172.7 cm (5' 8) Comment: pt reported Wt 103 kg (227 lb) Comment: pt reported BMI 34.52 kg/m?? CONSTITUTIONAL: alert, well developed, well nourished, in no acute distress NEUROLOGIC/PSYCHIATRIC: Grossly normal HEENT: normal atraumatic. LUNGS: Normal chest wall and respirations. Clear to auscultation. HEART: regular rate and rhythm ABDOMEN: soft, non-tender; bowel sounds normal; no masses, no organomegaly. No pulsatile abdominal mass INTEGUMENTARY: Wound - none MUSCULOSKELETAL: negative, no wounds or ulceration Pulses/Signals: Brachial Radial Femoral Popliteal Dorsalis Pedis Posterior Tibial Right 2/2 2/2 2/2 2/2 2/2 2/2 Left /07 09/2 /2 2/2 /07/09 DATA: Radiology: 02/18/2022 AAA duplex Bee Renal Aorta ?PSV (cm/s): 93 ?EDV (cm/s): 24 ?Diam AP (cm): 2.1 ?Diam Lateral (cm): 2.3 Infra Renal Aorta ?PSV (cm/s): 105 ?EDV (cm/s): 26 ?Diam AP (cm): 2.1 ?Diam Lateral (cm): 2.3 Distal Aorta ?PSV (cm/s): 96 ?EDV (cm/s): 5 ?Diam AP (cm): 1.9 ?Diam Lateral (cm): 2.0 Common Iliac Artery, Proximal, Right ?PSV (cm/s): 108 ?EDV (cm/s): 0 ?Diam AP (cm): 1.1 ?Diam Lateral (cm): 1.1 Common Iliac Artery, Proximal, Left ?PSV (cm/s): 122 ?EDV (cm/s): 0 ?Diam AP (cm): 1.1 ?Diam Lateral (cm): 1.3 ? Interpretation: ?? Patent abdominal aorta with no evidence of an infrarenal aortic aneurysm. Patent proximal common iliac arteries without evidence of stenosis or aneurysm. ?? Comparison: No previous study in our vascular lab database for comparison. OSH duplex 1.5cm iliac arteries b/l I have personally reviewed the following images/data: duplex Impression: 56 y.o. male w/ normal caliber aorta and by our duplex 1.1cm R CHERRIE and 1.3cm LCIA. Prior imaging OSH 1.5cm b/l. Reviewed w/patient normal to mild ectasia and unlikely to reach diameter threshold to require repair, approximately 3.5-4.5cm. Given his young age and family history, not unrea sonable to repeat duplex in 10 years. Plan: - repeat AAA duplex in 10 years - encouraged to continue good diabetes control - can consider and discuss w/PCP to changes Thank you for allowing me to participate in the care of your patient. Please do not hesitate to contact me with any questions or concerns. SIGNATURE: Patti Card MD PATIENT NAME: Douglas Tellez Jr. DATE: February 18, 2022 TIME: 9:58 AM documented in this encounter Plan of Treatment Not on file documented as of this encounter Visit Diagnoses Diagnosis Family history of abdominal aortic aneurysm Family history of other cardiovascular diseases documented in this encounter Care Teams Head Loft Worker Relationship Specialty Start Date End Date Delisa Reno MD [address] [place] [address] PCP - General Family Medicine 12/09/18 documented as of this encounter
--- OUTSIDE RECORDS SUMMARY | 2024-06-17 21:37 | XMS_ITS | Encounter Summary ---
Author Organization [facility] Address [facility] [place] [address] Care Team Providers Care Cotton Inspector Name Role Phone Delisa Reno MD Primary Care Provider [phone] Encounter Details Date Type Department Care Team (Late st Contact Info) Description 02/27/2020 Telephone Rheumatology at [facility] [address] Franklin Flores MD [facility] [place] [address] Social History Tobacco Use Types Packs/Day Years [...] encounter Miscellaneous Notes * Telephone Encounter - Franklin Flores MD - 02/27/2020 9:19 AM EDT Telephone note Elevated LFTs will repeat labs in 2-4 weeks. He denies drinking or any new medications documented in this encounter Plan of Treatment Not on file documented as of this encounter Visit Diagnoses Diagnosis High risk medication use Encounter for long-term (current) use of other medications Seropositive rheumatoid arthritis Rheumatoid arthritis documented in this encounter Care Teams Cotton Inspector Relationship Specialty Start Date End Date Delisa Reno MD [address] [place] [address] PCP - General Family Medicine 12/09/18 documented as of this encounter
--- OUTSIDE RECORDS SUMMARY | 2024-06-17 21:37 | XMS_ITS | Encounter Summary ---
Author Organization [facility] Address [facility] [address] Care Team Providers Care Hvac Designer Name Role Phone Delisa Reno MD Primary Care Provider [phone] Reason for Visit * Reason Onset Date Comments Labs Only 03/12/2020 Encounter Details Date Type Department Care Team (Late st Contact Info) Description 03/12/2020 Telephone [place] [address] Allyssa Pino, RN Labs Only Social History Tobacco Use [...] Telephone Encounter - Allyssa Pino RN - 03/12/2020 10:25 AM EDT PCP office calls to have labs faxed to their office for Douglas. [phone]. documented in this encounter Plan of Treatment Not on file documented as of this encounter Visit Diagnoses Not on filedocumented in this encounter Care Teams Hvac Designer Relationship Specialty Start Date End Date Delisa Reno MD [address] [place] [address] PCP - General Family Medicine 12/09/18 documented as of this encounter
--- OUTSIDE RECORDS SUMMARY | 2024-06-17 21:37 | XMS_ITS | Encounter Summary ---
Author Organization [facility] [place] [address] Care Team Providers Care Typesetting Supervisor Name Role Phone Delisa Reno MD Primary Care Provider [phone] Encounter Details Date Type Department Care Team (Late st Contact Info) Description 04/12/2020 Telephone [place] [id number] Kimberley Cronin Social History Tobacco Use Types [...] on filedocumented in this encounter Care Teams Typesetting Supervisor Relationship Specialty Start Date End Date Delisa Reno MD [address] [place] [address] PCP - General Family Medicine 12/09/18 documented as of this encounter
--- OUTSIDE RECORDS SUMMARY | 2024-06-17 21:37 | XMS_ITS | Encounter Summary ---
Author Organization [facility] [place] [address] Care Team Providers Care Guard Lieutenant Name Role Phone Delisa Reno MD Primary Care Provider [phone] Encounter Details Date Type Department Care Team (Late st Contact Info) Description 04/08/2020 Tele[place] [address] Kimberley Cronin Social History Tobacco Use Types [...] on filedocumented in this encounter Care Teams Guard Lieutenant Relationship Specialty Start Date End Date Delisa Reno MD [address] [place] [address] PCP - General Family Medicine 12/09/18 documented as of this encounter
--- OUTSIDE RECORDS SUMMARY | 2024-06-17 21:37 | XMS_ITS | Encounter Summary ---
Author Organization [facility] Address [facility] [place] [address] Care Team Providers Care Watch Engine Operator Name Role Phone Delisa Reno MD Primary Care Provider [phone] Reason for Visit * Reason Onset Date Comments Labs Only 06/14/2019 Encounter Details Date Type Department Care Team (Late st Contact Info) Description 06/14/2019 [place] [address] Oz Amador, RN Labs Only Social History Tobacco Use Types Packs/Day Years Used Date Smoking Tobacco: Never Smokeless Tobacco: Former Sex and Gender Information Value Date Recorded Sex Assigned at Not on file Gender Identity Not on file Sexual Orientation Not on file documented as of this encounter Miscellaneous Notes * Telephone Encounter - Oz Amador RN - 06/14/2019 12:19 PM EST Honey calls CF patient regarding labs. Reviewed labs from March, faxed copy to pcp and mailed copy. No further questions at this time. documented in this encounter Plan of Treatment Not on file documented as of this encounter Visit Diagnoses Not on filedocumented in this encounter Care Teams Watch Engine Operator Relationship Specialty Start Date End Date Delisa Reno MD [address] [place] [address] PCP - General Family Medicine 12/09/18 documented as of this encounter
--- OUTSIDE RECORDS SUMMARY | 2024-06-17 21:37 | XMS_ITS | Encounter Summary ---
Author Organization [facility] Address [facility] [place] [address] Care Team Providers Care Surgery Attendant Name Role Phone Delisa Reno MD Primary Care Provider [phone] Reason for Visit * Reason Onset Date Comments Medication Refill 07/07/2019 Encounter Details Date Type Department Care Team (Late st Contact Info) Description 07/07/2019 Refill Rheumatology at [facility] [place] [id number] Allyssa Pino RN Rheumatoid arthritis, involving unspecified site, unspecified rheumatoid factor presence Social History Tobacco Use Types Packs/Day Years Used Date Smoking Tobacco: Never Smokeless Tobacco: Former Sex and Gender Information Value Date Recorded Sex Assigned at Not on file Gender Identity Not on file Sexual Orientation Not on file documented as of this encounter Miscellaneous Notes * Telephone Encounter - Allyssa Pino RN - 07/07/2019 10:48 AM EST Images from the original note were not included. Douglas calls for refill of Methotrexate to go to pharmacy before Wednesday. RTC to Douglas and asked for a return call to discuss having labs done. I spoke with Douglas today and he is asking for a refill of Methotrexate. Reports he was hospitalized for an infection of a Lipoma surgical site in March into April. Does not know what the organism was. Currently he has return of the infection and reports site is draining green drainage. States WBC elevated again ad will likely start back on Antibiotics in the next day or two. I have asked Douglas to hold Methotrexate and I will ask his provider for further direction. July 10, 2019 Omi Lux MD to Me ?? 1:51 PM Hi Mo, I agree, hold methotrexate until infection is improved. ??Then call back for a refill of medication. ??Will need labs prior. I will order them now. Omi I spoke with Douglas and he agrees to plan of care above. Will call when antibiotics are done. Labs mailed to Douglas to have done closer to home when done with antibiotics. States organism growing is Pseudomonas. documented in this encounter Plan of Treatment Not on file documented as of this encounter Visit Diagnoses Diagnosis Rheumatoid arthritis, involving unspecified site, unspecified rheumatoid factor presence documented in this encounter Care Teams Surgery Attendant Relationship Specialty Start Date End Date Delisa Reno MD [address] [place] [address] PCP - General Family Medicine 12/09/18 documented as of this encounter
--- OUTSIDE RECORDS SUMMARY | 2024-06-17 21:37 | XMS_ITS | Encounter Summary ---
[place] [address] Care Team Providers Care Returned Goods Sorter Name Role Phone Delisa Reno MD Primary Care Provider Encounter Details Date Type Department Care Team (Late st Contact Info) Description 02/18/2022 8:30 AM EDT Tech [place] [id number] Juhi Devi Iliac artery aneurysm Social History Tobacco Use [...] Procedure Name Priority Date/Time Associated Diagnosis Comments AAA DUPLEX COMPLETE Routine 02/18/2022 8 :35 AM EDT Iliac artery aneurysm documented in this encounter Results * AAA Duplex, Complete/Bilateral (02/18/2022 8:35 AM EDT) VB Text Report Department: Vascular Surgery Lab Patient: [id number] (CASTRO HERNANDEZ) CPT: 76198 Referring Physician: BON BENEDICT, MARILYNN ?? Indications: enlarged bilateral proximal common iliac [...] VASCUBASE 02/18/2022 8:35 AM EDT Bon Benedict KIER BOILER VASCULAR ORDERABLE S VASCUBASE documented in this encounter Visit Diagnoses Diagnosis Iliac artery aneurysm Aneurysm of iliac artery documented in this encounter Care Teams Returned Goods Sorter Relationship Specialty Start Date End Date Delisa Reno MD [address] [place] [address] PCP - General Family Medicine 12/09/18 documented as of this encounter
--- OUTSIDE RECORDS SUMMARY | 2024-06-17 21:37 | XMS_ITS | Encounter Summary ---
Author Organization [facility] Address [facility] [place] [address] Care Team Providers Care Sales Host Name Role Phone Delisa Reno MD Primary Care Provider [phone] Encounter Details Date Type Department Care Team (Late st Contact Info) Description 04/05/2020 Telephone [place] [phone] Franklin Flores MD [facility] [place] [address] Social History Tobacco Use Types Packs/Day Years [...] on filedocumented in this encounter Care Teams Sales Host Relationship Specialty Start Date End Date Delisa Reno MD [address] [place] [address] PCP - General Family Medicine 12/09/18 documented as of this encounter
--- OUTSIDE RECORDS SUMMARY | 2024-06-17 21:37 | XMS_ITS | Encounter Summary ---
Author Organization [facility] Address [facility] [place] [address] Care Team Providers Care Grout Machine Tender Name Role Phone Delisa Reno MD Primary Care Provider [phone] Encounter Details Date Type Department Care Team (Late st Contact Info) Description 04/30/2020 Orders Only Rheumatology at [facility] [address] Franklin Flores MD [facility] [place] [address] Seropositive rheumatoid arthritis; Seronegative rheumatoid arthritis; High risk medication use Social History Tobacco Use Types Packs/Day Years [...] Diagnoses Diagnosis Seropositive rheumatoid arthritis Rheumatoid arthritis Seronegative rheumatoid arthritis Rheumatoid arthritis High risk medication use Encounter for long-term (current) use of other medications documented in this encounter Care Teams Grout Machine Tender Relationship Specialty Start Date End Date Delisa Reno MD [address] [place] [address] PCP - General Family Medicine 12/09/18 documented as of this encounter
--- OUTSIDE RECORDS SUMMARY | 2024-06-17 21:37 | XMS_ITS | Encounter Summary ---
Author Organization [facility] Address [facility] [place] [address] Care Team Providers Care Special Skills Officer Name Role Phone Delisa Reno MD Primary Care Provider [phone] Encounter Details Date Type Department Care Team (Late st Contact Info) Description 08/11/2019 1:30 PM EST [place] [address] [facility] [place] [address] Seropositive rheumatoid arthritis; High risk medication use; Rheumatoid arthritis, involving unspecified site, unspecified rheumatoid factor presence; Seronegative rheumatoid arthritis; Chronic pain of both knees Social History Tobacco Use Types Packs/Day Years [...] Sign Reading Time Taken Comments Blood Pressure 112/62 08/11/2019 2:07 PM EST Pulse 73 08/11/2019 2:07 PM EST Temperature 36.7 ??C (98 ??F) 08/11/2019 2:07 PM EST Respiratory Rate - - Oxygen Saturation 99% 08/11/2019 2:07 PM EST Inhaled Oxygen Concentration - - Weight - - Height - - Body Mass Index - - documented in this encounter Progress Notes * Gus Fuller MD - 08/11/2019 1:30 PM EST Rheumatology Follow- Up Note RheumHx Sero+RA od Dr Taylor on MTX patient last note not available Recent Lipoma Surgery with complications was on abx off MTX for about a month History of fractured vertebrae in the lower back Interval Hx Douglas Tellez Jr. is a 54 y.o. male who presents today for evalution Sero+ RA. DZ activity slightly increased with being off MTX of a months post complications. Most recent labs brought by patient show realtively normal CBC. Increase DZ activity in the left knee, lower back, elbows. No swelling redness or warmth He has had MS hours Lower back No swelling redness or warmth no fever chills or night sweats no chronic dry eyes or mouth overall has had no recent swelling redness Warmth of any of the joints ROS remainder WNL 11 pnt : No past medical history on file. Patient Active Problem List Diagnosis Date Noted ??? Seropositive erosive rheumatoid arthritis 04/05/2019 No past surgical history on file. No family history on file. Social History [...] and Sexual Activity ??? Alcohol use: Not on file ??? Drug use: Not on file ??? Sexual activity: Not on file Lifestyle ??? Physical activity Days per week: Not on file Minutes per session: Not on file ??? Stress: Not on file Relationships ??? Social connections Talks on phone: Not on file Gets together: Not on file Attends anabaptist service: Not on file Active member of [...] Allergen Reactions ??? Buster Inhibitors Physical Exam: BP 112/62 Pulse 73 Temp 36.7 ??C (98 ??F) (Oral) SpO2 99% General: NAD HEENT: Mucous membranes are moist, no oral mucosal ulcerations, Neck: Supple, no lymphadenopathylimited ROM post surgery Cardiovascular: RR, Lungs: Clear to auscultation bilaterally. Abdomen: Soft, non tender, non distended, + bowel sounds, no hepatosplenomegaly. Neuro: Alert and oriented x3. Skin: (-)ulcers, (-)rash Vascular: Pulses are equal in all extremities. MSK Back: Non tender over the spine and costovertebral angles bilaterally. (+)Catalino Extremities Shoulders: FROM, non-tender to palpation Elbows:FROM, (-)pain, (-)nodules Wrists: FROM, no swelling, non-tender Hands: No synovitis, no MCP compression tenderness, full claw and fist Hips: FROM, (-) fader (-catalino) Knees: (-)effusions, non-tender ROM Ankles: FROM, non-tender, no swelling Feet: no MTP compression tenderness, missing toe Spine, shoulders, elbows, wrists, fingers, hips, knees and ankles; no active swelling, tenderness or synovitis at any joint. No soft tissue nodules. Assessment: Douglas Tellez Jr. is a 54 [...] remission with a significant amount osteoarthritis changes. XRays from last visit show healing erosion. Reviewed MTX toxicities Advised could start at the same dose as before but could start 6tabs weekly for 2 weeks then increase to 7 tabs weekly for 1 week and then the 4th week back to 8 tabs and if all look good will stay at 8tabs weekly Patient educated about disease activity Plan or Recommendation : Orders Placed This Encounter Procedures ??? XR Knee 3 Views Bilat ??? CRP, acute inflammation ??? Comprehensive metabolic panel (non-fasting) ??? CBC (with Diff) ??? Sedimentation rate Repeat labs in 4 weeks Gus Fuller MD documented in this encounter Miscellaneous Notes * Addendum Note - Gus Fuller MD - 08/11/2019 1:30 PM ESTAddended by: GUS FULLER on: 08/11/2019 04:35 PM Modules accepted: Level of Service documented in this encounter Plan of Treatment Not on file documented as of this encounter Visit Diagnoses Diagnosis Seropositive rheumatoid arthritis Rheumatoid arthritis High risk medication use Encounter for long-term (current) use of other medications Rheumatoid arthritis, involving unspecified site, unspecified rheumatoid factor presence Seronegative rheumatoid arthritis Rheumatoid arthritis Chronic pain of both knees documented in this encounter Care Teams Special Skills Officer Relationship Specialty Start Date End Date Delisa Reno MD [address] [place] [address] PCP - General Family Medicine 12/09/18 documented as of this encounter
--- OUTSIDE RECORDS SUMMARY | 2024-06-17 21:37 | XMS_ITS | Encounter Summary ---
Author Organization [facility] [place] [address] Care Team Providers Care Jigsaw Operator Name Role Phone Delisa Reno MD Primary Care Provider [phone] Reason for Visit * Reason Onset Date Comments Other 01/25/2020 Encounter Details Date Type Department Care Team (Late st Contact Info) Description 01/25/2020 Telephone [place] [phone] Oz Amador RN Other Social History Tobacco Use Types Packs/Day Years [...] Telephone Encounter - Oz Amador RN - 01/25/2020 5:08 PM EDT Spoke with patient, having issues with lab completion at [facility]. CBC not completed Will fax requisition per patient request to PCP and mail copy to patient. Patient also inquires about appointment, advised to contact scheduling to set up fuv, expressed understanding. documented in this encounter Plan of Treatment Not on file documented as of this encounter Visit Diagnoses Not on filedocumented in this encounter Care Teams Jigsaw Operator Relationship Specialty Start Date End Date Delisa Reno MD [address] [place] [address] PCP - General Family Medicine 12/09/18 documented as of this encounter
--- OUTSIDE RECORDS SUMMARY | 2024-06-17 21:37 | XMS_ITS | Encounter Summary ---
Author Organization [facility] Address [facility] [place] [address] Care Team Providers Care Lead Machinist Name Role Phone Delisa Reno MD Primary Care Provider [phone] Reason for Visit * Reason Onset Date Comments Labs Only 04/01/2020 Encounter Details Date Type Department Care Team (Late st Contact Info) Description 04/01/2020 Telephone Rheumatology at [facility] [place] [address] Oz Amador RN Labs Only Social History Tobacco Use [...] Telephone Encounter - Oz Amador RN - 04/10/2020 2:50 PM EST Spoke with patient. Unable to find transportation. Advised labs have been sent. Patient to have procedure done, will contact clinic when able to set up an appointment. * Telephone Encounter - Oz Amador RN - 04/05/2020 3:24 PM EDT Offered April 11 at 7:30 am, patient will have to arrange transportation and will contact clinic. Spoke with patient regarding arms and feeling like they have fallen asleep. States had for years, PCP aware, but then started mtx and resolved, but has since returned since stopping mtx. Bilateral arms. Goes from fingers to elbows. No noticeable swellings, perhaps slight swelling to fingers. No discoloration to arms hands fingers. Started 10 days ago. Mainly at night time. 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 Mentions lipoma removed from wrist years ago. Right elbow pops and snaps. No fever or chills. No cough or cold s/s. No c/p or sob. No n/v. Intake adequate. Patient updated on Dr. Flores's recommendation for ER, expressed understanding. Labs to be sent to PCP and mailed to patient. * Telephone Encounter - Oz Amador RN - 04/05/2020 11:37 AM EDT Spoke with patient. Having difficulty holding objects. Arms feel like they are asleep. Has been off mtx for a few weeksnow. Sides don't hurt as much now. States he imagines this is what lyme dz would feel like, although tested recently by primary and was normal. Will be having surgery. Will not be able to be seen after the . Has lipoma growing in arch of foot that is being removed ([facility] at [facility] doing surgery?), surgery in May. Patient inquires about status of appointment. * Telephone Encounter - Oz Amador RN - 04/02/2020 5:05 PM EDT Images from the original note were not included. Franklin Flores MD Gavalakis, Rory A, RN; P [facility] Rhe[facility] [place] Caller: Unspecified (Yesterday, ??8:45 AM) ?? I think getting him in for an urgent with the fellow would be helpful in figuring out what is goingon If he need steroids. ??That can be arranged ut his inflammatory markers are wnl those labs are recent So the labs point away from inflammation. ??Does not mean it is not happening but can not evaluate over the computer or without more detail Goes in for coronavirus test on , having surgery, then has to be quarantined until May. Also mentions abnormal EKG with PCP, has to have u/s on . Patient amenable to appointment, but some difficulties with scheduling may occur due to other appointments. * Telephone Encounter - Oz Amador RN - 04/01/2020 10:24 AM EDT Patient calls seeking lab results. MTX no longer working, fingers are swollen. No longer taking, stopped around the 16 of March, was having pain under rib cage, bilaterally, has stopped since stopping taking MTX. Labs done 03/11 at pcp. Called pcp and requested results, left vm and fax number provided. documented in this encounter Plan of Treatment Not on file documented as of this encounter Visit Diagnoses Not on filedocumented in this encounter Care Teams Lead Machinist Relationship Specialty Start Date End Date Delisa Reno MD [address] [place] [address] PCP - General Family Medicine 12/09/18 documented as of this encounter
--- OUTSIDE RECORDS SUMMARY | 2024-06-17 21:37 | XMS_ITS | Clinical Summary ---
Author Organization Formerly [facility] [place] [address] Care Team Providers Care Polish Compounder Name Role Phone Delisa Reno MD Primary Care Provider Allergies Active Allergy Reactions Criticality Noted Date Comments Buster Inhibitors Low Hydroxychloroquine Sulf (Bulk) 06/14 Arm locking Methotrexate Sodium (Pf) 06/14/2020 Abdominal pain bilateral under the rib cage. Resolved when stopped Medications Medication Sig Dispensed Refills Start Date End Date Status insulin aspart (NOVOLOG) 100 unit/mL injection 06/22/2006 Active insulin glargine (LANTUS) 100 unit/mL injection 06/22/2006 Active PROAIR HFA 90 mcg/actuation HFA Aerosol Inhaler TAKE 1 TO 2 INHALATIONS BY MOUTH EVERY 4 TO 6 HOURS NEEDED FOR WHEEZE 0 09/09/2018 Active ONETOUCH ULTRA BLUE TEST STRIP Strip TEST four times a day 0 10/27/2018 Active gabapentin (NEURONTIN) 300 mg Capsule 300 mg 4 times daily. 0 11/25/2018 Act bhanu levothyroxine (SYNTHROID) 175 mcg Tablet daily. 0 11/25/2018 Active lisinopril (PRINIVIL;ZESTRIL) 10 mg Tablet Take by mouth. 0 11/02/2018 Active pantoprazole (PROTONIX) 20 mg Tablet, Delayed Release (E.C.) daily. 0 11/21/2018 Active simvastatin (ZOCOR) 20 mg Tablet Take 1 by mouth at bedtime 0 12/06/2018 Active aspirin 81 mg Tablet, Chewable Take 81 mg by mouth daily. Active ondansetron (ZOFRAN-ODT) 8 mg Tablet, Rapid Dissolve as needed. 0 03/23/2019 Active BD ULTRA-FINE MINI PEN NEEDLE 31 gauge x 3/16 Needle USE 5 TIMES DAILY 0 12/29/2018 Act bhanu naproxen sodium (ANAPROX) 220 mg Tablet Take 220 mg by mouth daily. Active ibuprofen (ADVIL;MOTRIN) 200 mg Tablet Take 400 mg by mouth every 6 hours as needed for Pain. Active vardenafiL (LEVITRA) 20 mg Tablet Levitra 20 mg tablet TAKE 1 TABLET (20 MG) BY ORAL ROUTE ONCE DAILY NEEDED APPROXIMATELY 1 HOUR BEFORE SEXUAL ACTIVITY Active Active Problems Problem Noted Date Diagnosed Date Seropositive erosive rheumatoid arthritis 2018 Immunizations Name Administration Dates Next Due Pneumococcal 23-Valent Polysaccharide (Pneumovax 23) 09/01/2004 Td Adult (not absorbed) 06/07/1999 Family History Medical History Relation Comments Abdominal Aortic Aneurysm Father Cerebral Aneurysm Maternal Grandfather Relation Status Comments Father Maternal Grandfather Social History Tobacco Use Types Packs/Day Years Used Date Smoking Tobacco: Never Smokeless Tobacco: Former Alcohol Use Standard Drinks/Week Comments Not Currently 0 (1 standard drink = 0.6 oz pur e alcohol) Sex and Gender Information Value Date Recorded Sex Assigned at Not on file Gender Identity Not on file Sexual Orientation Not on file Last Filed Vital Signs Vital Sign Reading Time Taken Comments Blood Pressure 129/72 02/18/2022 9:27 AM EDT Pulse 62 02/18/2022 9:27 AM EDT Temperature 36.7 ??C (98 ??F) 08/11/2019 2:07 PM EST Respiratory Rate 17 12/09/2018 10:56 AM EDT Oxygen Saturation 99% 08/11/2019 2:07 PM EST Inhaled Oxygen Concentration - - Weight 103 kg (227 lb) 02/18/2022 9:27 AM EDT pt reported Height 172.7 cm (5' 8) 02/18/2022 9:27 AM EDT p t reported Body Mass Index 34.52 02/18/2022 9:27 AM EDT Plan of Treatment Health Maintenance Due Date Last Done Comments CT Colonography 1967 Colonoscopy 1967 Colorectal Cancer Screening 1965 FIT DNA 1967 FIT 1967 Sigmoidoscopy (10 year) with FIT yearly 1967 Sigmoidoscopy 1967 HIV screen 1985 Hepatitis B vaccine (0-59 yrs) (1) 1986 Tetanus/Diphtheria/Pertussis Vaccines (1 - Tdap) 06/0806/07/1999 Zoster vaccine (1 of 2) 2017 Diabetes Screening (HgbA1C or Glucose) 12/09/2021 Advance Directive 2022 Covid-19 Vaccine (1 - season) 2024 Influenza (Flu) vaccine (1 o f 1 - Influenza standard series) 02/06/2024 Hepatitis C Screening Completed 12/09/2018 Procedures Procedure Name Priority Date/Time Associated Diagnosis Comments HEPATITIS C ANTIBODY Routine 12/09/2018 12:46 PM EDT High risk medication use Inflammatory arthropathy Seropositive rheumatoid arthritis Pain in both hands Bilateral hip pain Bilateral wrist pain Chronic pain of both knees Chronic bilateral low back pain without sciatica Morning joint stiffness Inflammatory back pain Neck pain COMPREHENSIVE METABOLIC PANEL Routine 12/09/2018 12:46 PM EDT High risk medication use Inflammatory arthropathy Seropositive rheumatoid arthritis Pain in both hands Bilateral hip pain Bilateral wrist pain Chronic pain of both knees Chronic bilateral low back pain without sciatica Morning joint stiffness Inflammatory back pain Neck pain from Last 3 Months or Most Recently Relevant to Health Maintenance Results * Hepatitis C Antibody (12/09/2018 12:46 PM EDT) Pathologist [facility] [place] Hepatitis C Antibody Negative Negative [facility] Blood specimen (specimen) 12/09/2018 12:46 PM EDT 12/09/2018 1:30 PM EDT Narrative Resulting Agency Comment Spec In Lab Franklin Flores MD CHEMISTRY ORDERABLES [facility] [place] [address] [place] [address] * (ABNORMAL) Comprehensive metabolic panel (non-fasting) (12/09/2018 12:46 PM EDT) Pathologist [facility] [place] Glucose 238(H) 65 - 199 mg/dL [facility] Comment:Diabetes: >=200 mg/d L plus symptoms Blood Urea Nitrogen 17 10 - 20 mg/dL [facility] Creatinine 0.89 0.80 - 1.50 mg/dL [facility] Sodium 139 135 - 145 mmol/L [facility] Potassium 4.1 3.5 - 5.0 mmol/L [facility] Comment: Please note: ??Patients with WBC >100,000 may have falsely elevated Potassium levels. ??For accurate Potassium quantification in these patients send serum separator tube (gold top) for subsequent determinations. ??Contact the Clinical Chemistry Laboratory if there are any questions. Chloride 104 98 - 107 mmol/L [facility] Carbon Dioxide 23 22 - 31 mmol/L [facility] Anion Gap 12 5 - 15 mmol/L [facility] Calcium 9.2 8.5 - 10.5 mg/dL [facility] Protein, Total 6.8 6.1 - 8.0 gm/dL [facility] Albumin 4.5 3.2 - 5.2 gm/dL [facility] Aspartate Aminotransferase 24 0 - 39 unit/L [facility] Alanine Aminotransferase 24 0 - 55 unit/L [facility] Alkaline Phosphatase 57 40 - 120 unit/L [facility] Bilirubin, Total 0.8 0.2 - 1.3 mg/dL [facility] Est Glomerular Filtration Rate 99 >=60 mL/min/1. 73 m?? [facility] Comment: The eGFR was calculated using the CKD-EPI equation. As with all creatinine based estimates of kidney function, eGFR values calculated with the CKD-EPI equation are not accurate in patients with acute kidney failure, extremes of body mass or the acutely ill. [email or web address] eGFR 115 >=60 mL/min/1. 73 m?? [facility] Comment: The eGFR was calculated using the CKD-EPI equation. As with all creatinine based estimates of kidney function, eGFR values calculated with the CKD-EPI equation are not accurate in patients with acute kidney failure, extremes of body mass or the acutely ill. [email or web address] Blood specimen (specimen) 12/09/2018 12:46 PM EDT 12/09/2018 1:30 PM EDT Narrative Resulting Agency Comment Spec In Lab Franklin Flores MD CHEMISTRY ORDERABLES [facility] [place] [address] from Last 3 Months or Most Recently Relevant to Health Maintenance Care Teams Polish Compounder Relationship Specialty Start Date End Date Delisa Reno MD [address] [place], [place] [id number] PCP - General Family Medicine 12/09/18
--- OUTSIDE RECORDS SUMMARY | 2024-06-17 21:37 | XMS_ITS | Encounter Summary ---
Author Organization [facility] [place] [address] Care Team Providers Care Dairy Nutritionist Name Role Phone Delisa Reno MD Primary Care Provider [phone] Encounter Details Date Type Department Care Team (Late st Contact Info) Description 04/18/2020 External Results [place] [address] Provider, Scanning Social History Tobacco Use Types Packs/Day Years [...] Priority Date/Time Associated Diagnosis Comments SURGICAL PATHOLOGY SCAN Routine 04/18/2020 documented in this encounter Results * Scan Doc: Surgical Pathology (04/18/2020) Historical Provider MEDIA MGR SCAN EX T ORDR/RSLT documented in this encounter Visit Diagnoses Not on filedocumented in this encounter Care Teams Dairy Nutritionist Relationship Specialty Start Date End Date Delisa Reno MD [address] [place] [address] PCP - General Family Medicine 12/09/18 documented as of this encounter
--- OUTSIDE RECORDS SUMMARY | 2024-06-17 21:37 | XMS_ITS | Encounter Summary ---
Author Organization [facility] Address [facility] [place] [address] Care Team Providers Care Cost Estimating Clerk Name Role Phone Delisa Reno MD Primary Care Provider [phone] Reason for Visit * Reason Onset Date Comments Questions 07/25/2019 Encounter Details Date Type Department Care Team (Late st Contact Info) Description 07/25/2019 [place] [address] Oz Amador RN Questions Social History Tobacco Use Types Packs/Day Years Used Date Smoking Tobacco: Never Smokeless Tobacco: Former Sex and Gender Information Value Date Recorded Sex Assigned at Not on file Gender Identity Not on file Sexual Orientation Not on file documented as of this encounter Miscellaneous Notes * Telephone Encounter - Oz Amador RN - 07/26/2019 9:27 AM EST Images from the original note were not included. Message Received: Today Message Contents Franklin Flores MD Gavalakis, Rory A RN Caller: Unspecified (Yesterday, ??9:02 AM) ?? Yes, then call us let us know. ??Low risk MTX will worsen infection but may interfere with ABx and Abx may interfere with MTX Franklin Previous Messages ----- Message ----- From: Oz Amador RN Sent: 07/25/2019 ?? 2:38 PM EST To: Franklin Flores MD So want him to see surgeon before restarting MTX? ??He is currently done with ABX. RG ----- Message ----- From: Franklin Flores MD Sent: 07/25/2019 ?? 2:01 PM EST To: Oz Amador RN Once infection is cleared okay restart MTX. If no need to go on continued antibiotics okay to restart MTX. The person you are seeing for the infection will tell us if okay to restart. ?? The surgeon will dicatate by follow-up. Out side of NSAIDs and tylenol not much can add that will not affect wound healing or increase infection risk. Likley will be able to resume once infection cleared or no need for antibiotics has been deciuded Franklin Patient updated on above and expressed understanding. He will contact clinic if any issues arise and notify clinic after appointment with surgeon regarding wound progression. Amenable to having labs done prior to ov 3/ if needed. * Telephone Encounter - Oz Amador RN - 07/25/2019 11:13 AM EST Patient calls clinic to update on status and question resuming MTX. Completed 10 day course of ABX since last d/t surgical wound infection. MTX was taken last06/28 at 7 pm. Jul 22 started on Flexeril prn. Naproxen 250 mg bid and Tylenol q6h for pain prn. Still with open wound, 5 cm x 8 cm, minimal depth. 4x4 gauze, adaptic. Trace of green yesterday. Every other day dsg change, due to change tomorrow. Wound is located between shoulder blades. Wound bed is pink. No redness to surrounding tissue. Home health comes to change. sees surgeon in [place]. Lower back and hands with discomfort. Difficulty checking BS. Back is quite bothersome, is working with PT. No fever or chills at this time. No cough or sob. No n/v. No gi or gu issues present. Saw endo last week. BS 139 this am . Hgb A1c 6.8 in July 12. Questions resuming MTX. If unable to resume, what options are available. If needs labs (last drawn for 07/18), will complete ([place]), would be mailed to patient. documented in this encounter Plan of Treatment Not on file documented as of this encounter Visit Diagnoses Not on filedocumented in this encounter Care Teams Cost Estimating Clerk Relationship Specialty Start Date End Date Delisa Reno MD [address] [place] [address] PCP - General Family Medicine 12/09/18 documented as of this encounter
--- OUTSIDE RECORDS SUMMARY | 2024-06-17 21:37 | XMS_ITS | Encounter Summary ---
Author Organization [facility] Address [facility] [place] [address] Care Team Providers Care Manager Benefit Name Role Phone Delisa Reno MD Primary Care Provider [phone] Reason for Visit * Reason Onset Date Comments Appointment 11/15/2019 Encounter Details Date Type Department Care Team (Late st Contact Info) Description 11/15/2019 [place] [address] Oz Amador, RN Appointment Social History Tobacco Use Types [...] Telephone Encounter - Oz Amador RN - 11/15/2019 3:08 PM EDT Patient feeling better than 2 weeks ago. Does not feel lame as previously. Advised that patient is having issues, would need to be seen in clinic. He states he is doing well. Labs will be done tomorrow. Advised labs to be reviewed and will discuss in clinic or TH appointment further at that time. * Telephone Encounter - Oz Amador RN - 11/15/2019 9:55 AM EDT Just started MTX again, pain had increased. Wednesday/ tab split per week and Folic acid. Has fuv upcoming. Will have labs done, will have done at [facility]. Advised to notify clinic upon completion of labs. States does not see need to travel to clinic to be seen. Questions if may have phone appointment. documented in this encounter Plan of Treatment Not on file documented as of this encounter Visit Diagnoses Not on filedocumented in this encounter Care Teams Manager Benefit Relationship Specialty Start Date End Date Delisa Reno MD [address] [place] [address] PCP - General Family Medicine 12/09/18 documented as of this encounter
--- OUTSIDE RECORDS SUMMARY | 2024-06-17 21:38 | XMS_ITS | Encounter Summary ---
Author Organization [facility] Address [address] [place] [address] Care Team Providers Care Supervisor Statement Clerks Name Role Phone Unavailable Primary Care Provider Unavailabl e Encounter Details Date Type Department Care Team (Latest Contact Info) Description 10/16/2016 15:11 EDT - 10/16/2016 23:59 EDT Hospital Encounter [address] [address] Unknown, Provider, MD Discharge Disposition: Home or Self Care Social History Tobacco Use Types Packs/Day Years Used Date Smoking Tobacco: Never Assessed Sex and Gender Information Value Date Recorded Sex Assigned at Not on file Legal Sex Male 14:20 EDT Gender Identity Not on file Sexual Orientation Not on file documented as of this encounter Discharge Disposition Disposition Code Departure Means Destination Home or Self Group Home documented in this encounter Plan of Treatment Not on file documented as of this encounter Visit Diagnoses Not on filedocumented in this encounter
--- OUTSIDE RECORDS SUMMARY | 2024-06-17 21:38 | XMS_ITS | Encounter Summary ---
Author Organization [facility] Address [address] [place] [address] Care Team Providers Care Carnallite Plant Operator Name Role Phone Unknown, Provider MD Primary Care Provider Unava ilable Encounter Details Date Type Department Care Team (Late st Contact Info) Description 10/16/2016 Results Only [facility] [phone] Alecia Carvajal MD [address] [place] [id number] Social History Tobacco Use Types Packs/Day Years [...] Priority Date/Time Associated Diagnosis Comments SURGICAL PATHOLOGY Routine 10/16/2016 14 :43 EDT documented in this encounter Results * SURGICAL PATHOLOGY (10/16/2016 14:43 EDT) Pathology Report: SURGICAL PATHOLOGY REPORT Reports generated via electronic interface contain original data; however they are lacking the format of the original report. Caution should be taken when reading/interpreting unformatted reports. Name: ? JOHNNIE HERNANDEZMICAELA Sinha ? Accession #: ? [id number] ? : ? 1965 (Age: 51) ??M ? Collect Date: ? 10/16/2016 ? Location: ? [facility] ? Receive Date: ? 10/17/2016 ? Provider: ALECIA CARVAJAL MD Copy to: DEMETRIS SMALL MD ? Final Pathologic Diagnosis: TISSUE FROM RIGHT WRIST, RESECTION: - Synovial cyst. - Chronic synovitis with fibrosis. Comment: This case is presented and reviewed at the intradepartmental consultation conference. Dr. Chapa 10/25/2016 8:28 AM Document reviewed and electronically signed by: Robert Chapa MD Report ??Date: 10/26/2016 15:20 By the signature above, the attending physician certifies that he/she has personally conducted a gross and/or microscopic examination of the described specimens and rendered or confirmed the above diagnosis. Specimen(s) Received: Right wrist mass Clinical History: Not listed Gross Description: ? Received in formalin labelled with proper patient identification (initials M, N) and right wrist mass are multiple rubbery and dense variegated emerson to contreras-white to brown-orange tissue fragments aggregating 3.0 x 2.0 x 2.0 cm. Medical Record Librarians Teacher sections are submitted in 1 and 2. JT Bragg (ASCP) 10/22/2016 8:25 AM End of Report [facility] 10/16/2016 14:4 3 EDT 10/17/2016 14:43 EDT us Alecia Carvajal MD PATHOLOGY ORDERABLES Final Res ult [facility] [address] [place] [address] documented in this encounter Visit Diagnoses Not on filedocumented in this encounter Care Teams Carnallite Plant Operator Relationship Specialty Start Date End Date Unknown, Provider, PCP - General 10/21/16 documented as of this encounter
--- OUTSIDE RECORDS SUMMARY | 2024-06-17 21:38 | XMS_ITS | Patient Health Record ---
Author Organization [facility] Address [address] [place] [address] Care Team Providers Care Furniture Mover Name Role Phone DEMETRIS SMALL MD Primary Care Provider Unavaila Bettina Vieyra Unavailable [phone] ALLERGIES Allergen (clinical drug ingredient) Drug/Non Drug [...] MEDICAID [place] [employer] [place], [place] [id number] CASTRO SRIVASTAVA Self - patient is the insured SELF [place]Y [place] [address] [address] CASTRO SRIVASTAVA Self - patient is the insured MEDICAL [...]
--- OUTSIDE RECORDS SUMMARY | 2024-06-17 21:38 | XMS_ITS | Encounter Summary ---
Author Organization [facility] Address [address] [place] [address] Care Team Providers Care Filing Machine Operator Name Role Phone Unknown, Provider Primary Care Provider Unava ilable Encounter Details Date Type Department Care Team (Late st Contact Info) Description 05/25/2020 Lab Requisition [facility] Pathology & Laboratory Medicine - [address] [id number] Outr Resulting Lab, Provider Social History Tobacco Use Types Packs/Day Years Used Date Smoking Tobacco: Never Assessed Interpersonal Safety Answer Date Record ed Physically Hurt Never 01/08/2020 Verbally Threaten Not on file 01/08/2020 Sex and Gender Information Value Date Recorded Sex Assigned at Not on file Legal Sex Male 14:20 EDT Gender Identity Not on file Sexual Orientation Not on file documented as of this encounter Plan of Treatment Not on file documented as of this encounter Procedures Procedure Name Priority Date/Time Associated Diagnosis Comments QUANTIFERON TB GOLD PLUS Routine 05/24/2020 13:55 EST documented in this encounter Results * QUANTIFERON TB GOLD PLUS (05/24/2020 13:55 EST) Quantiferon Interpretation Negative Negative 05/29/2020 14:25 EST [facility] Comment: No interferon-gamma response to M. tuberculosis antigens was detected. ??Infection with M. tuberculosis is unlikely. A single negative result does not exclude infection with M. tuberculosis. ??In patients at high risk for M. tuberculosis infection, a second test should be considered in accordance with the 2017 ATS/IDSA/CDC Clinical Practice Guidelines for Diagnosis of Tuberculosis in Adults and Children. [Lavinia DESIR et. al. Clin. Infect. Dis. 2017:64 (2) ??: 111-115]. Results were obtained with the Qiagen QuantiFERON TB Gold Plus CECY. TB1 Ag minus Nil 0.00 IU/ml 05/29/20 14:25 EST [facility] TB2 Ag minus Nil 0.00 IU/mL 05/29/20 14:25 EST [facility] Blood VENOUS BLOOD / Unknown 05/24/2020 13:55 EST 05/26/2020 16:22 EST Narrative [facility] - 05/29/2020 14:25 EST Results were obtained with the Qiagen QuantiFERON-TB Gold Plus CECY. us Provider Outr Resulting Lab CHEMISTRY & BLOOD GA S ORDERABLES Final Result Performing Organization Address City/State/[facility] Co de Phone Number [facility] [address] [place] [address] documented in this encounter Visit Diagnoses Not on filedocumented in this encounter Care Teams Filing Machine Operator Relationship Specialty Start Date End Date Unknown, Provider, PCP - General 10/21/16 documented as of this encounter
--- OUTSIDE RECORDS SUMMARY | 2024-06-17 21:38 | XMS_ITS | Encounter Summary ---
Author Organization [facility] Address [address] [place] [address] Care Team Providers Care Key Bed Installer Name Role Phone Unknown, Provider Primary Care Provider Unanikki ilable Encounter Details Date Type Department Care Team (Late st Contact Info) Description 03/12/2020 Lab Requisition [facility] Pathology & Laboratory [facility] - [facility] [address] [place] [address] Outr Resulting Lab, Provider Social History Tobacco [...] Procedure Name Priority Date/Time Associated Diagnosis Comments LYME AB Routine 03/11/2020 15:55 EDT documented in this encounter Results * LYME AB (03/11/2020 15:55 EDT) Lyme Ab Negative Negative 03/13/2020 10:26 EDT [facility] Comment:New 3rd generation a ssay in use 11/15/2019 Blood VENOUS BLOOD / Unknown 03/11/2020 15:55 EDT 03/12/2020 17:02 EDT us Provider Outr Resulting Lab IMMUNOLOGY AND SEROL OGY ORDERABLES Final Result [facility] [address] [place] [address] documented in this encounter Visit Diagnoses Not on filedocumented in this encounter Care Teams Key Bed Installer Relationship Specialty Start Date End Date Unknown, Provider, PCP - General 10/21/16 documented as of this encounter
--- OUTSIDE RECORDS SUMMARY | 2024-06-17 21:38 | XMS_ITS | Clinical Summary ---
Author Organization [facility] Address [address] [place] [address] Care Team Providers Care Automation/Controls Manager Name Role Phone Unknown, Provider MD Primary Care Provider Unava ilable Social History Tobacco Use Types Packs/Day Years Used Date Smoking Tobacco: Never Assessed Interpersonal Safety Answer Date Record ed Physically Hurt Never 01/08/2020 Verbally Threaten Not on file 01/08/2020 Sex and Gender Information Value Date Recorded Sex Assigned at Not on file Legal Sex Male 14:20 EDT Gender Identity Not on file Sexual Orientation Not on file Plan of Treatment Health Maintenance Due Date Last Done Comments Hepatitis C Screen 1965 Hepatitis B Vaccine (1 of 3 - 19+ 3-dose series) 06/01 COVID-19 Vaccine (2023- season) 2024 Insurance MEDICAID [employer] [place] Care Teams Automation/Controls Manager Relationship Specialty Start Date End Date Unknown, Provider, PCP - General 10/21/16
--- OUTSIDE RECORDS SUMMARY | 2024-06-17 21:38 | XMS_ITS | Encounter Summary ---
Author Organization [facility] Address [address] [place] [address] Care Team Providers Care Oracle Manager Name Role Phone Unknown, Provider Primary Care Provider Unava ilable Encounter Details Date Type Department Care Team (Latest Contact Info) Description 03/23/2019 16:22 EDT - 03/23/2019 23:59 EDT Hospital Encounter [address] [address] Unknown, Provider, Discharge Disposition: Home or Self Care Social History Tobacco Use Types Packs/Day Years Used Date Smoking Tobacco: Never Assessed Sex and Gender Information Value Date Recorded Sex Assigned at Not on file Legal Sex Male 14:20 EDT Gender Identity Not on file Sexual Orientation Not on file documented as of this encounter Discharge Disposition Disposition Code Departure Means Destination Home or Self [facility]pc documented in this encounter Plan of Treatment Not on file documented as of this encounter Visit Diagnoses Not on filedocumented in this encounter Care Teams Oracle Manager Relationship Specialty Start Date End Date Unknown, ProviderMD PCP - General 10/21/16 documented as of this encounter
--- OUTSIDE RECORDS SUMMARY | 2024-06-17 21:38 | XMS_ITS | Encounter Summary ---
Author Organization [facility] Address [facility] [place] [address] Care Team Providers Care Plumber Name Role Phone Delisa Reno MD Primary Care Provider [phone] Encounter Details Date Type Department Care Team (Latest Contact Info) Description 12/09/2018 11:42 AM EDT - 12/09/2018 11:59 PM EDT Hospital Encounter XRay at [address] [place] [address] Franklin Flores MD [facility] [place] [address] Inflammatory arthropathy; Neck pain; Pain in both hands; Bilateral wrist pain; Bilateral hip pain; Inflammatory back pain Discharge Disposition: Home Social History Tobacco Use Types Packs/Day Years Used Date Smoking Tobacco: Never Sex and Gender Information Value Date Recorded Sex Assigned at Not on file Gender Identity Not on file Sexual Orientation Not on file documented as of this encounter Medications at Time of Discharge Medication Sig Dispensed Refills Start Date End Date PROAIR HFA 90 mcg/actuation HFA Aerosol Inhaler [...] insulin glargine (LANTUS) 100 unit/mL injection 06/22/2006 folic acid (FOLVITE) 1 mg Tablet take 2 tablets by mouth once daily 0 10/24/2018 03/20/2019 hydroxychloroquine (PLAQUENIL) 200 mg Tablet 0 11/21/2018 07/25/2019 metHOTREXate 2.5 mg Tablet 0 12/01/2018 03/20/2019 aspirin 325 mg tablet 06/22/20062018 documented as of this encounter Plan of Treatment Not on file documented as of this encounter Procedures Procedure Name Priority Date/Time Associated Diagnosis Comments XR PELVIS AND HIP 2 VIEWS BILATERAL Routine 12/09/2018 12:34 PM EDT Inflammatory arthropathy Bilateral hip pain Inflammatory back pain XR HAND MIN 3 VIEWS BILAT Routine 12/09/2018 12:34 PM EDT Inflammatory arthropathy Pain in both hands Bilateral wrist pain XR CERVICAL SPINE 2 OR 3 VIEWS Routine 12/09/2018 12:34 PM EDT Inflammatory arthropathy Neck pain documented in this encounter Results * XR Pelvis w AP & Lat Hip Bilat (12/09/2018 12:34 PM EDT) Anatomical Region Laterality Modality Pelvis, Hip Bilateral Digital Radiogra phy Impressions 12/09/2018 2:36 PM EDT 1. ??Bilateral hip osteoarthritis. 2. ??Healed left femoral fracture. 3. ??Severe degenerative disc disease. Thank you for letting us participate in the care of this patient. For questions regarding this report, please contact the number below. ? Narrative 12/09/2018 2:36 PM EDT EXAMINATION: XR PELVIS W AP AND LAT HIP BILAT CLINICAL HISTORY: with STIR, SI joint pain TECHNIQUE: The study includes an AP view of the pelvis as well as AP and lateral views of the hips bilaterally COMPARISON: None FINDINGS: Pelvis: At the sacroiliac joints bilaterally there is degenerative sclerosis. No inflammatory sclerosis is identified. No erosive disease or ankylosis is identified. The symphysis pubis is normal in appearance. Severe asymmetric disc space narrowing is present in the lower lumbar spine. Both hips there is osteophyte formation. Internal fixation is seen at the left femur. Bilateral hips: At both hips, marginal osteophyte formation and subchondral sclerosis is present. There is at most minimal joint space narrowing. At the right hip there is a small focus of ossification adjacent to the lateral margin of the acetabulum consistent with a a small focus of labral calcification. A subchondral cyst is seen lateral margin of the left acetabulum At the left femur intramedullary fixation is in place. A proximal femoral fracture is healed. Procedure Note Maldonado Tate MD - 12/09/2018 EXAMINATION: XR PELVIS W AP AND LAT HIP BILAT CLINICAL HISTORY: with STIR, SI joint pain TECHNIQUE: The study includes an AP view of the pelvis as well as AP and lateralviews of the hips bilaterally COMPARISON: None FINDINGS: Pelvis: At the sacroiliac joints bilaterally there is degenerative sclerosis. No inflammatory sclerosis is identified. No erosive disease or ankylosis is identified. The symphysis pubis is normal in appearance. Severe asymmetric disc space narrowing is present in the lower lumbarspine. Both hips there is osteophyte formation. Internal fixation is seen at the left femur. Bilateral hips: At both hips, marginal osteophyte formation and subchondral sclerosis is present. There is at most minimal joint space narrowing. At the right hipthere is a small focus of ossification adjacent to the lateral margin of the acetabulum consistent with a a small focus of labral calcification. A subchondral cyst is seen lateral margin of the left acetabulum At the left femur intramedullary fixation is in place. A proximalfemoral fracture is healed. IMPRESSION 1. Bilateral hip osteoarthritis. 2. Healed left femoral fracture. 3. Severe degenerative disc disease. Thank you for letting us participate in the care of this patient. Forquestions regarding this report, please contact the number below. Franklin Flores MD IMG DX ORDERABLES * XR Hand Min 3 views Bilat (Generic) (12/09/2018 12:34 PM EDT) Anatomical Region Laterality Modality Hand Bilateral Digital Radiogra phy Impressions 12/09/2018 2:44 PM EDT 1. ??Note definite erosive disease. There are well-defined lucencies at the PIP joints of the left ring and middle finger which I believe represents subchondral cysts. 2. ??Subtle deformity of the right wrist possibly related to remote fracture. Thank you for letting us participate in the care of this patient. For questions regarding this report, please contact the number below. ? Narrative 12/09/2018 2:44 PM EDT EXAMINATION: XR HAND MIN 3 VIEWS BILAT (GENERIC) CLINICAL HISTORY: inflammatory arthropathy TECHNIQUE: 4 views BILATERAL hands COMPARISON: None FINDINGS: No focal soft tissue swelling. No soft tissue mass. No soft tissue calcification. No acute injury is identified. The contour the distal right radius suggests possibility of remote fracture. Although the study is not optimal for assessing ulnar length the right ulna does appear to be relatively long. I suspect this ulnar plus configuration is suspected secondary to earlier injury. Interphalangeal joints: Minimal osteophyte formation. Well-defined radiolucencies at the left ring and middle finger PIP joints involving the radial margin of the proximal phalanges are surrounded by a rim of sclerosis. The radiographic appearance as well as the absence of joint space narrowing suggest these are subchondral cysts or erosions. These represent erosions they are healed as reflected by the presence of sclerotic bone. Metacarpophalangeal joints: No joint space narrowing, malalignment or erosive disease. Bilateral wrists: As described above the subtle deformity of the right wrist suggests possible remote fracture. There is sclerosis at the distal right ulna possibly secondary to chronic ulnar abutment. I do not see erosive disease space narrowing. Procedure Note Maldonado Tate MD - 12/09/2018 EXAMINATION: XR HAND MIN 3 VIEWS BILAT (GENERIC) CLINICAL HISTORY: inflammatory arthropathy TECHNIQUE: 4 views BILATERAL hands COMPARISON: None FINDINGS: No focal soft tissue swelling. No soft tissue mass. No soft tissue calcification. No acute injury is identified. The contour the distal right radiussuggests possibility of remote fracture. Although the study is not optimal forassessing ulnar length the right ulna does appear to be relatively long. I suspectthis ulnar plus configuration is suspected secondary to earlier injury. Interphalangeal joints: Minimal osteophyte formation. Well-defined radiolucencies at the left ringand middle finger PIP joints involving the radial margin of the proximalphalanges are surrounded by a rim of sclerosis. The radiographic appearance as wellas the absence of joint space narrowing suggest these are subchondral cysts or erosions. These represent erosions they are healed as reflected by thepresence of sclerotic bone. Metacarpophalangeal joints: No joint space narrowing, malalignment or erosive disease. Bilateral wrists: As described above the subtle deformity of the right wrist suggestspossible remote fracture. There is sclerosis at the distal right ulna possiblysecondary to chronic ulnar abutment. I do not see erosive disease space narrowing. IMPRESSION 1. Note definite erosive disease. There are well-defined lucencies at thePIP joints of the left ring and middle finger which I believe representssubchondral cysts. 2. Subtle deformity of the right wrist possibly related to remotefracture. Thank you for letting us participate in the care of this patient. Forquestions regarding this report, please contact the number below. Franklin Flores MD IMG DX ORDERABLES * XR Cervical Spine 2 Or 3 Views (12/09/2018 12:34 PM EDT) Anatomical Region Laterality Modality C-spine N/A Digital Radiogra phy Impressions 12/09/2018 2:39 PM EDT Multilevel degenerative disc disease. Thank you for letting us participate in the care of this patient. For questions regarding this report, please contact the number below. ? Narrative 12/09/2018 2:39 PM EDT EXAMINATION: XR CERVICAL SPINE 2 OR 3 VIEWS CLINICAL HISTORY: inflammatory arthopathy with pain in the neck TECHNIQUE: 3 views of the cervical spine COMPARISON: None FINDINGS: Disc space narrowing and osteophyte formation typical of degenerative disc disease is evident at C3-4, C5-6 and C6-7. Particularly large osteophytes are present posterior to C5-6, focally narrowing the canal. No fracture. No focal lesion. Procedure Note Maldonado Tate MD - 12/09/2018 EXAMINATION: XR CERVICAL SPINE 2 OR 3 VIEWS CLINICAL HISTORY: inflammatory arthopathy with pain in the neck TECHNIQUE: 3 views of the cervical spine COMPARISON: None FINDINGS: Disc space narrowing and osteophyte formation typical of degenerativedisc disease is evident at C3-4, C5-6 and C6-7. Particularly large osteophytes are present posterior to C5-6, focallynarrowing the canal. No fracture. No focal lesion. IMPRESSION Multilevel degenerative disc disease. Thank you for letting us participate in the care of this patient. Forquestions regarding this report, please contact the number below. Franklin Flores MD IMG DX ORDERABLES documented in this encounter Visit Diagnoses Diagnosis Inflammatory arthropathy Arthropathy, unspecified, site unspecified Neck pain Cervicalgia Pain in both hands Bilateral wrist pain Pain in joint, forearm Bilateral hip pain Pain in joint, pelvic region and thigh Inflammatory back pain documented in this encounter Care Teams Plumber Relationship Specialty Start Date End Date Delisa Reon MD [address] [place] [address] PCP - General Family Medicine 12/09/18 documented as of this encounter
--- OUTSIDE RECORDS SUMMARY | 2024-06-17 21:38 | XMS_ITS | Encounter Summary ---
Author Organization [facility] Address [address] [place] [address] Care Team Providers Care Expert Medical Writer Name Role Phone Unknown, Provider MD Primary Care Provider Unava ilable Encounter Details Date Type Department Care Team (Late st Contact Info) Description 03/23/2019 Results Only [facility] [phone] Roger Salinas MD [address] [place] [phone] Social History Tobacco Use Types Packs/Day Years [...] Date/Time Associated Diagnosis Comments SURGICAL PATHOLOGY Routine 03/23/2019 18 :26 EDT documented in this encounter Results * SURGICAL PATHOLOGY (03/23/2019 18:26 EDT) Pathology Report: SURGICAL PATHOLOGY REPORT Reports generated via electronic interface contain original data; however they are lacking the format of the original report. Caution should be taken when reading/interpret ing unformatted reports. Name: ? CASTRO HERNANDEZ ? Accession #: ? [id number] ? : ? 1965 (Age: 53) ??M ? Collect Date: ? 03/23/2019 ? Location: ? [facility] ? Receive Date: ? 03/23/2019 ? Provider: ROGER SALINAS MD Copy to: DEMETRIS SMALL MD ? Final Pathologic Diagnosis: MASS, SUBCUTANEOUS NECK/BACK, EXCISION: - Fibrolipoma. Document reviewed and electronically signed by: CAMERON WONG MD Report ??Date: 03/28/2019 09:11 By the signature above, the attending physician certifies that he/she has personally conducted a gross and/or microscopic examination of the described specimens and rendered or confirmed the above diagnosis. Specimen(s) Received: Subcutaneous neck/back mass; short inferior, long right lateral Clinical History: Presumed lipoma Gross Description: ? Received in formalin labelled with proper patient identification (initials M, N) and subcutaneous neck\back mass is an oriented ovoid, cauterized portion of adipose tissue (72 g, 8.7 cm left to right x 8.1 cm superior to inferior x 3.6 cm superficial to deep). The specimen is oriented with a short stitch inferior and long stitch right lateral. ? The specimen is serially sectioned to show a lobulated fibrofatty tissue with a focal area of light hemorrhage. Color Printer Operator sections (including hemorrhage) are submitted in 1-5. INK ANDREWS Yellow- superficial Black- deep Blue- superior Green- inferior ? Red- right lateral Ryan- left lateral ? JT Sosa (ASCP) 03/24/2019 8:18 AM End of Report [facility] 03/23/2019 18:2 6 EDT 03/23/2019 18:26 EDT us Roger Salinas MD PATHOLOGY ORDERABLES Final Result [facility] [address] [place] [address] documented in this encounter Visit Diagnoses Not on filedocumented in this encounter Care Teams Expert Medical Writer Relationship Specialty Start Date End Date Unknown, Provider, PCP - General 10/21/16 documented as of this encounter
--- OUTSIDE RECORDS SUMMARY | 2024-06-17 21:38 | XMS_ITS | Encounter Summary ---
Author Organization [facility] Address [address] [place] [address] Care Team Providers Care Puttier Name Role Phone Unknown, Provider Primary Care Provider Unava ilable Encounter Details Date Type Department Care Team (Late st Contact Info) Description 11/20/2020 Lab Requisition [facility] Pathology & Laboratory Medicine - [address] [id number] Outr Resulting Lab, Provider Social History Tobacco [...] Procedure Name Priority Date/Time Associated Diagnosis Comments PSA TOTAL, DIAGNOSTIC Routine 11/19/2020 9:10 EDT documented in this encounter Results * PSA TOTAL, DIAGNOSTIC (11/19/2020 9:10 EDT) PSA 0.7 0.0 - 3.5 ng/mL 11/20/2020 17:13 EDT [facility] Blood VENOUS BLOOD / Unknown 11/19/2020 9:10 EDT 11/20/2020 15:51 EDT Narrative [facility] - 11/20/2020 17:13 EDT NOTE: Serum PSA concentration should not be interpreted as absolute evidence for the presence or absence of malignant disease. Assayed on Siemens ADVIA Centaur XPT using chemiluminescent technology.??Values obtained by using different assay methods cannot be used interchangeably. us Provider Outr Resulting Lab CHEMISTRY & BLOOD GA S ORDERABLES Final Result [facility] [address] [place] [address] documented in this encounter Visit Diagnoses Not on filedocumented in this encounter Care Teams Puttier Relationship Specialty Start Date End Date Unknown, Provider, PCP - General 10/21/16 documented as of this encounter
--- OUTSIDE RECORDS SUMMARY | 2024-06-17 21:38 | XMS_ITS | Referral Summary ---
Author Organization [facility] Address [address] [place] [address] Care Team Providers Care Hull Builder Name Role Phone Unknown, Provider MD Primary [...] Orientation Not on file Plan of Treatment Not on file Insurance MEDICAID [employer] [place] Care Teams Hull Builder Relationship Specialty Start Date End Date Unknown, Provider, PCP - General 10/21/16
--- OUTSIDE RECORDS SUMMARY | 2024-06-17 21:38 | XMS_ITS | Encounter Summary ---
Author Organization [facility] Address [facility] [place] [address] Care Team Providers Care Pan Reclaim Processor Name Role Phone Delisa Reno MD Primary Care Provider [phone] Reason for Visit * Reason Onset Date Comments Medication Refill 03/20/2019 Encounter Details Date Type Department Care Team (Late st Contact Info) Description 03/20/2019 Refill Rheumatology at [facility] [place] [address] Allyssa Pino RN Social History Tobacco Use Types Packs/Day Years Used Date Smoking Tobacco: Never Sex and Gender Information Value Date Recorded Sex Assigned at Not on file Gender Identity Not on file Sexual Orientation Not on file documented as of this encounter Miscellaneous Notes * Telephone Encounter - Allyssa Pino RN - 03/20/2019 12:48 PM EDT Douglas calls for refills of Methotrexate and Folic Acid. RTC to Douglas as we have not ordered prescriptions for him in the past. Douglas states he is taking MTX 20 mg in divided doses and Folic Acid 2 mg daily. Pharmacy is [facility] in [place]. Douglas reports he stopped Plaquenil at direction of PCP because his arm was locking up frequently. Arm has not locked up since starting. Has follow up planned for 04/05/[address] Flores. documented in this encounter Plan of Treatment Not on file documented as of this encounter Visit Diagnoses Not on filedocumented in this encounter Care Teams Pan Reclaim Processor Relationship Specialty Start Date End Date Delisa Reno MD [address] [place] [address] PCP - General Family Medicine 12/09/18 documented as of this encounter
--- OUTSIDE RECORDS SUMMARY | 2024-06-17 21:38 | XMS_ITS | Encounter Summary ---
Author Organization [facility] Address [facility] [place] [address] Care Team Providers Care Operations And Maintenance Supervisor Name Role Phone Delisa Reno MD Primary Care Provider [phone] Encounter Details Date Type Department Care Team (Late st Contact Info) Description 12/09/2018 11:00 AM EDT Office [place] [address] Franklin Flores MD [facility] [place] [address] High risk medication use; Inflammatory arthropathy; Seropositive rheumatoid arthritis; Pain in both hands; Bilateral hip pain; Bilateral wrist pain; Chronic pain of both knees; Chronic bilateral low back pain without sciatica; Morning joint stiffness; Inflammatory back pain; Neck pain Social History Tobacco Use Types Packs/Day Years Used Date Smoking Tobacco: Never Sex and Gender Information Value Date Recorded Sex Assigned at Not on file Gender Identity Not on file Sexual Orientation Not on file documented as of this encounter Last Filed Vital Signs Vital Sign Reading Time Taken Comments Blood Pressure 121/72 12/09/2018 10:56 AM EDT Pulse 55 12/09/2018 10:56 AM EDT Temperature 36.7 ??C (98.1 ??F) 12/09/2018 10:56 AM E DT Respiratory Rate 17 12/09/2018 10:56 AM EDT Oxygen Saturation 96% 12/09/2018 10:56 AM EDT Inhaled Oxygen Concentration - - Weight 98.9 kg (218 lb) 12/09/2018 10:56 AM EDT Height 175.3 cm (5' 9) 12/09/2018 10:56 AM EDT Body Mass Index 32.19 12/09/2018 10:56 AM EDT documented in this encounter Progress Notes * Franklin Flores MD - 12/09/2018 11:00 AM EDT Rheumatology Consult Note Reason for Consult: Douglas Tellez Jr. presents today at the request of Declan Cruz MD (Inactive) for evaluation of MARCUS sero+RA od Dr Taylor I have reviewed the provided records, pertinent records available at the time of the [facility] appointment with in the medical record and any forms completed by the patient. These have been scanned into the medical record for future review. HPI: Douglas Tellez Jr. is a 53 y.o. male who presents today for evalution Of seropositive RA previouslydiagnosed by Dr. Taylor unfortunately do not have patients last note from Dr. Taylor. Per the patient was diagnosed approximately 1 year ago after having wrist surgery and cyst removal of the rightwrist returned with swelling redness of the right wrist. He was seen by his primary who worked up for gout but in that setting sent off RF and CCP which per the patient came back positive. He has since then been on methotrexate and folic acid. He describes a long history of lower back pain worse inthe morning when he first wakes up associated stiffness lasting for about 1 to 2 hours does not gene rally improve with activity and gets worse throughout the day he also has history of bilateral chronic knee pain left greater than right with history of left leg surgery with a violet extending down from his femur in which she has a screw which he got in the 80s with a revision. 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 He also suffers from poorly controlled diabetes, thyroid disease. He describes no electrical shock sensation going down to his arms or legs no saddle a nesthesia no overt numbness and tingling. He has had injection in the past to his joints which is raise his blood sugars into the 500s His last hemoglobin A1c was greater than 8. He suffers from chronic fatigue and weakness secondary to pain occasional eye redness eye itching, chronic shortness of breath or difficulty breathing at night cough some underlying asthma heartburn Mr. Loan Abeba Claudia with headaches dizziness muscle spasm with history of anxiety depression frequent sneezing. Denies any family history of rheumatological disease. He is tried ibuprofen and Motrin in the past but been worried about his kidneys stomachand GI tract. He avoids Tylenol because of concerns of liver issues but has no background liver disease or elevated inflammatory markers markers. Overall he describes his current disease status poor most related to his back neck. He does feel that methotrexate does help overall is when he came off it his symptoms were much worse. He does have difficulties with small objects touching his feet while seated reaching behind his back reaching behind his head dressing himself staying asleep due to pain and obtaining restful sleep working in morning stiffness. Of note is related to his working he works less frequent days in a row because of his chronic pain. He sometimes has difficulty walking climbing stairs descending stairs sitting down getting out of the chair bathing and eating getting along with family members Knees, elbows, wrist lower back and neck. He has difficult neck pain with lipoma, Last wrist red or wamt He has gout Morning stiffness neck and lower back - X rays of the lowe Left leg brken in in 19uo Broke lower lumbar. Swelling warmth or Redness of the Joints: none Morning stiffness: above Pain Improves with: MTX ROS: General (-)fevers, (-)chills, (-)night sweats, (-)wt loss/gain. HEENT (-)head trauma, (-)vision change, (-)tinnitus, (-)epistaxis, (-)sore throat, (-)bleeding gums, (-)oral ulcers, (-)dry eyes, (-)dry mouth, (- )dysphagia,, (-)photo sensitivity, (-)vertigo CVS (-)chest pain, (-)palpitations, (-)pedal edema, (-)PND, (-)orthopnea. Pulm (above (-)pleuritic pain GI (-)N/V, (-)abdominal pain, (-)emesis, (-)hematemesis, (-)hematochezia, (- )change in appetite (-)hematuria, (-)dysuria, (-)frequency, (-)nocturia, (-)genital ulcers MS (-)muscle weakness, (-)paralysis, Endo (-)thyroid disorders, (-)diabetes, (-)temperature intolerance. Neuro (-)focal weakness, (-)paresthesias, (-)gait instability. Skin (-)Raynaud's, ulcers Psych (-) mood disorder. No past medical history on file. There are no active problems to display for this patient. No past surgical history on file. No family history on file. Social History Socioeconomic History ??? Marital status: Single Spouse name: None ??? Number of children: None ??? Years of education: None ??? Highest education level: None Occupational History ??? None Social Needs ??? Financial resource strain: None ??? Food insecurity: Worry: None Inability: None ??? Transportation needs: Medical: None Non-medical: None Tobacco Use ??? Smoking status: Never Smoker Substance and Sexual Activity ??? Alcohol use: None ??? Drug use: None ??? Sexual activity: None Lifestyle ??? Physical activity: Days per week: None Minutes per session: None ??? Stress: None Relationships ??? Social connections: Talks on phone: None Gets together: None Attends islam service: None Active member of club or organization: None Attends meetings of clubs or organizations: None Relationship status: None ??? Intimate partner violence: Fear of current or ex partner: None Emotionally abused: None Physically abused: None Forced sexual activity: None Other Topics Concern ??? None Social History Narrative ??? None Current Outpatient Medications Medication Sig Dispense Refill ??? PROAIR HFA 90 mcg/actuation HFA Aerosol Inhaler TAKE 1 TO 2 INHALATIONS BY MOUTH EVERY 4 TO 6 HOURS NEEDED FOR WHEEZE 0 ??? ONETOUCH ULTRA BLUE TEST STRIP Strip TEST four times a day 0 ??? folic acid (FOLVITE) 1 mg Tablet take 2 tablets by mouth once daily 0 ??? gabapentin (NEURONTIN) 300 mg Capsule 0 ??? hydroxychloroquine (PLAQUENIL) 200 mg Tablet 0 ??? levothyroxine (SYNTHROID) 175 mcg Tablet 0 ??? lisinopril (PRINIVIL;ZESTRIL) 10 mg Tablet 0 ??? metHOTREXate 2.5 mg Tablet 0 ??? pantoprazole (PROTONIX) 20 mg Tablet, Delayed Release (E.C.) 0 ??? simvastatin (ZOCOR) 20 mg Tablet Take 1 by mouth at bedtime 0 ??? aspirin 81 mg Tablet, Chewable Take 81 mg by mouth daily. ??? insulin aspart (NOVOLOG) 100 unit/mL injection ??? insulin glargine (LANTUS) 100 unit/mL injection ??? aspirin 325 mg tablet (Patient not taking: Reported on 12/09/2018) No current facility-administered medications for this visit. Current Outpatient Medications on File Prior to Visit Medication Sig Dispense Refill ??? PROAIR HFA 90 mcg/actuation HFA Aerosol Inhaler TAKE 1 TO 2 INHALATIONS BY MOUTH EVERY 4 TO 6 HOURS NEEDED FOR WHEEZE 0 ??? Cashier LiveTOUCH ULTRA BLUE TEST STRIP Strip TEST four times a day 0 ??? folic acid (FOLVITE) 1 mg Tablet take 2 tablets by mouth once daily 0 ??? gabapentin (NEURONTIN) 300 mg Capsule 0 ??? hydroxychloroquine (PLAQUENIL) 200 mg Tablet 0 ??? levothyroxine (SYNTHROID) 175 mcg Tablet 0 ??? lisinopril (PRINIVIL;ZESTRIL) 10 mg Tablet 0 ??? metHOTREXate 2.5 mg Tablet 0 ??? pantoprazole (PROTONIX) 20 mg Tablet, Delayed Release (E.C.) 0 ??? simvastatin (ZOCOR) 20 mg Tablet Take 1 by mouth at bedtime 0 ??? aspirin 81 mg Tablet, Chewable Take 81 mg by mouth daily. ??? insulin aspart (NOVOLOG) 100 unit/mL injection ??? insulin glargine (LANTUS) 100 unit/mL injection ??? aspirin 325 mg tablet (Patient not taking: Reported on 12/09/2018) No current facility-administered medications on file prior to visit. Allergies Allergen Reactions ??? Buster Inhibitors Physical Exam: BP 121/72 Pulse 55 Temp 36.7 ??C (98.1 ??F) Resp 17 Ht 175.3 cm (5' 9) Wt 98.9 kg (218 lb) SpO2 96% BMI 32.19 kg/m?? General: AAOx3, NAD HEENT: Mucous membranes are moist, no oral mucosal ulcerations, temporal artery non-palpable Neck: Supple, no lymphadenopathy, full range of motion. Cardiovascular: RR, (-)murmurs, rubs, or gallops. Lungs: Clear to auscultation bilaterally. (-)R/R/W Abdomen: Soft, non tender, non distended, + bowel sounds, no hepatosplenomegaly. Neuro: Alert and oriented x3. Cranial nerves II through XII grossly intact. - Strength 5/5 throughout, -Sensation to light touch is grossly normal throughout. DTRs are 2+ throughout. Toes down going bilaterally. Skin: (-)ulcers, (-)rash \ Vascular: Pulses are equal in all extremities. [...] at any joint. No soft tissue nodules. Labs: Studies: Assessment: Douglas Tellez Jr. is a 53 y.o. male who presents today as a transfer of care from Dr. Taylor's office for seropositive RA on methotrexate 20 mg in divided doses weekly, folic acid and 400 mg of hydroxychloroquine daily. His major complaints today are bilateral knee pain, lower back pain, and neckpain. He has had joint injections before but admits to poorly controlled diabetes and extremely elevated blood sugars post injection of his wrist in the past. The asymmetrical nature of his arthritisand chronic lower back pain raise concern for inflammatory back disease in addition to his seropositive RA which I see little evidence of today but patient is currently on treatment. We will get imaging of the pelvis to evaluate the SI joints today and do additional blood work to evaluate for objective evidence of inflammatory arthritis. If that imaging of the pelvis shows any inflammatory changes then may be defined patient as ankylosing spondylitis plus or minus rheumatoid arthritis thus treatment may change change going forward and considering a biologic would offer patient better symptomatic control. If imaging is within normal limits and must consider that the symptoms are related to mechanical back pain consider physical therapy plus or minus pain medicine eval however patient will need blood glucose is under better control if he was forward with steroid injections. >25 min spent on education, reviewing lbas and test >25 spent on reviewing the chart material and trying to get records Plan or Recommendation : Orders Placed This Encounter Procedures ??? XR Cervical Spine 2 Or 3 Views ??? XR Hand Min 3 views Bilat (Generic) ? ? XR Pelvis w AP & Lat Hip Bilat ??? CRP, acute inflammation ??? Comprehensive metabolic panel (non-fasting) ??? CBC (with Diff) ??? Sedimentation rate ??? Cyclic Citrullinated Peptide ??? Rheumatoid factor, quant ??? Hepatitis C Antibody ??? Hepatitis B Surface Antibody ??? Hepatitis B Core Antibody, Total ??? Hepatitis B Surface Antigen ??? Uric acid ??? HLA-B27 Franklin Flores MD documented in this encounter Miscellaneous Notes * Addendum Note - Lisa Gonsales - 12/09/2018 11:00 AM EDTAddended by: LISA GONSALES on: 12/09/2018 12:40 PM Modules accepted: Orders documented in this encounter Plan of Treatment Not on file documented as of this encounter Procedures Procedure Name Priority Date/Time Associated Diagnosis Comments CRP, ACUTE INFLAMMATION Routine 12/09/2018 12:46 PM EDT High risk medication use Inflammatory arthropathy Seropositive rheumatoid arthritis Pain in both hands Bilateral hip pain Bilateral wrist pain Chronic pain of both knees Chronic bilateral low back pain without sciatica Morning joint stiffness Inflammatory back pain Neck pain ANTI-CYCLIC CITRULLINATED PEPTIDE AB Routine 12/09/2018 12:46 PM EDT High risk medication use Inflammatory arthropathy Seropositive rheumatoid arthritis Pain in both hands Bilateral hip pain Bilateral wrist pain Chronic pain of both knees Chronic bilateral low back pain without sciatica Morning joint stiffness Inflammatory back pain Neck pain HEMOGRAM Routine 12/09/2018 12:46 PM EDT High risk medication use Inflammatory arthropathy Seropositive rheumatoid arthritis Pain in both hands Bilateral hip pain Bilateral wrist pain Chronic pain of both knees Chronic bilateral low back pain without sciatica Morning joint stiffness Inflammatory back pain Neck pain DIFFERENTIAL, AUTOMATED Routine 12/09/2018 12:46 PM EDT High risk medication use Inflammatory arthropathy Seropositive rheumatoid arthritis Pain in both hands Bilateral hip pain Bilateral wrist pain Chronic pain of both knees Chronic bilateral low back pain without sciatica Morning joint stiffness Inflammatory back pain Neck pain HLA-B27 Routine 12/09/2018 12:46 PM EDT High risk medication use Inflammatory arthropathy Seropositive rheumatoid arthritis Pain in both hands Bilateral hip pain Bilateral wrist pain Chronic pain of both knees Chronic bilateral low back pain without sciatica Morning joint stiffness Inflammatory back pain Neck pain HEPATITIS C ANTIBODY Routine 12/09/2018 12:46 PM EDT High risk medication use Inflammatory arthropathy Seropositive rheumatoid arthritis Pain in both hands Bilateral hip pain Bilateral wrist pain Chronic pain of both knees Chronic bilateral low back pain without sciatica Morning joint stiffness Inflammatory back pain Neck pain HEPATITIS B CORE ANTIBODY, TOTAL Routine 12/09/2018 12:46 PM EDT High risk medication use Inflammatory arthropathy Seropositive rheumatoid arthritis Pain in both hands Bilateral hip pain Bilateral wrist pain Chronic pain of both knees Chronic bilateral low back pain without sciatica Morning joint stiffness Inflammatory back pain Neck pain HEPATITIS B SURFACE ANTIBODY Routine 12/09/2018 12:46 PM EDT High risk medication use Inflammatory arthropathy Seropositive rheumatoid arthritis Pain in both hands Bilateral hip pain Bilateral wrist pain Chronic pain of both knees Chronic bilateral low back pain without sciatica Morning joint stiffness Inflammatory back pain Neck pain HEPATITIS B SURFACE ANTIGEN Routine 12/09/2018 12:46 PM EDT High risk medication use Inflammatory arthropathy Seropositive rheumatoid arthritis Pain in both hands Bilateral hip pain Bilateral wrist pain Chronic pain of both knees Chronic bilateral low back pain without sciatica Morning joint stiffness Inflammatory back pain Neck pain SEDIMENTATION RATE Routine 12/09/2018 12 :46 PM EDT High risk medication use Inflammatory arthropathy Seropositive rheumatoid arthritis Pain in both hands Bilateral hip pain Bilateral wrist pain Chronic pain of both knees Chronic bilateral low back pain without sciatica Morning joint stiffness Inflammatory back pain Neck pain CBC (WITH DIFF) Routine 12/09/2018 12:46 PM EDT High risk medication use Inflammatory arthropathy Seropositive rheumatoid arthritis Pain in both hands Bilateral hip pain Bilateral wrist pain Chronic pain of both knees Chronic bilateral low back pain without sciatica Morning joint stiffness Inflammatory back pain Neck pain RHEUMATOID FACTOR, QUANT Routine 12/09/2018 12:46 PM EDT High risk medication use Inflammatory arthropathy Seropositive rheumatoid arthritis Pain in both hands Bilateral hip pain Bilateral wrist pain Chronic pain of both knees Chronic bilateral low back pain without sciatica Morning joint stiffness Inflammatory back pain Neck pain URIC ACID Routine 12/09/2018 12:46 PM EDT High risk [...] joint stiffness Inflammatory back pain Neck pain documented in this encounter Results * Differential, Automated (12/09/2018 12:46 PM EDT) Neutrophil % 59.1 % [facility] Neutrophil Absolute 3.77 1.70 - 6.10 x10(3)/[facility] Lymph % 30.9 % [facility] Lymphocytes Abs 2.0 0.9 - 3.2 x10(3)/[facility] Monocyte % 6.7 % [facility] Monocyte Abs 0.4 0.3 - 0.9 x10(3)/[facility] Eos % 2.4 % [facility] Eosinophils Abs 0.2 0.0 - 0.4 x10(3)/[facility] Basophil % 0.6 % [facility] Baso Absolute 0.0 0.0 - 0.1 x10(3)/[facility] Immature Gran % 0.30 % [facility] Comment: Immature granulocytes(IG's)percentage and absolute count will include metamyelocytes, myelocytes, and promyelocytes. Blood smears from CBCs yielding IG's will be scanned manually for concordance. If this scan disagrees with the automated IG or if promyelocytes are noted, a manual differential will be performed. Immature Gran Absolute 0.02 0.00 - 0.04 x10(3)/mcL [facility] Blood specimen (specimen) 12/09/2018 12:46 PM EDT 12/09/2018 1:30 PM EDT Narrative Resulting Agency Comment Spec In Lab Franklin Flores MD HEMATOLOGY ORDERABLE S [facility] [place] [address] * (ABNORMAL) Hemogram (12/09/2018 12:46 PM EDT) White Blood Cell 6.4 4.0 - 9.5 x10(3)/mc L [facility] Red Blood Cell 4.75 4.58 - 5.54 x10(6)/mc L [facility] Hemoglobin 14.9 13.7 - 16.5 gm/dL [facility] Hematocrit 44.8 40.5 - 48.5 % [facility] Mean Cell Volume 94.3(H) 82.9 - 93.1 fL [facility] Mean Cell Hemoglobin 31.4 27.5 - 32.1 pg [facility] Mean Cell Hemoglobin Concentration 33.3 32.0 - 35.7 gm/dL [facility] Platelet 276 145 - 357 x10(3)/mc L [facility] RDW Standard Deviation 45.0 36.0 - 45.0 [facility] RDW coefficient of variation 13.0 11.4 - 13.8 % [facility] Mean Platelet Volume 10.9 7.6 - 12.9 fL [facility] NRBC% auto 0.0 % [facility] NRBC Absolute 0.000 0.000 - 0.000 x10(3)/mc L [facility] Blood specimen (specimen) 12/09/2018 12:46 PM EDT 12/09/2018 1:30 PM EDT Narrative Resulting Agency Comment Spec In Lab Franklin Flores MD HEMATOLOGY ORDERABLE S Performing Organization Address [facility] Co de Phone Number [facility] [place] [address] * HLA-B27 (12/09/2018 12:46 PM EDT) HLA-B27 Negative [facility] HLA B27 Interpretation HLA B27 antigen was not detected. Method: Flow Cytometry Reference: 1.Cristiana YU, Victoriano DUBOIS, Renu Sinha, et al: Ankylosing spondylitis and HLA-27. Lancet 1973;1:904-907 2.Gissel Turner, Angel MONTERO: HLA-B27 typing by use of flow cytofluorometr y. Clin Chem 1987;33:1619-1 623 [facility] White Blood Cell 6.4 4.0 - 9.5 x10(3)/m cL [facility] Blood specimen (specimen) 12/09/2018 12:46 PM EDT 12/09/2018 1:30 PM EDT Narrative Resulting Agency Comment Spec In Lab Franklin Flores MD HEMATOLOGY ORDERABLE S Performing Organization Address [facility] de Phone Number [facility] [place] [address] * Uric acid (12/09/2018 12:46 PM EDT) Uric Acid 5.6 3.5 - 8.5 mg/dL [facility] Blood specimen (specimen) 12/09/2018 12:46 PM EDT 12/09/2018 1:30 PM EDT Narrative Resulting Agency Comment Spec In Lab Franklin Flores MD CHEMISTRY ORDERABLES [facility] [place] [address] * Hepatitis B Surface Antigen (12/09/2018 12:46 PM EDT) Hepatitis B Surface Antigen Negative Negative [facility] Blood specimen (specimen) 12/09/2018 12:46 PM EDT 12/09/2018 1:30 PM EDT Narrative Resulting Agency Comment Spec In Lab Franklin Flores MD CHEMISTRY ORDERABLES Performing Organization Address [facility] Co de Phone Number [facility] [place] [address] * Hepatitis B Core Antibody, Total (12/09/2018 12:46 PM EDT) Hepatitis B Core Antibody Negative Negative [facility] Blood specimen (specimen) 12/09/2018 12:46 PM EDT 12/09/2018 1:30 PM EDT Narrative Resulting Agency Comment Spec In Lab Franklin Flores MD CHEMISTRY ORDERABLES Performing Organization Address [facility] Co de Phone Number [facility] [place] [address] * Hepatitis B Surface Antibody (12/09/2018 12:46 PM EDT) Hepatitis B Surface Antibody, Quantitative <3.5 IU/L [facility] Comment: HepB Surface Ab Quant: Unvaccinated: < 8.5 IU/L Vaccinated: > 11.5 IU/L Hepatitis B Surface Antibody Negative [facility] Comment: Patient is presumed to be not vaccinated or immune to HBV infection. Expected Results: Vaccinated: Positive Unvaccinated: Negative Blood specimen (specimen) 12/09/2018 12:46 PM EDT 12/09/2018 1:30 PM EDT Narrative Resulting Agency Comment Spec In Lab Franklin Flores MD CHEMISTRY ORDERABLES [facility] [place] [address] * Hepatitis C Antibody (12/09/2018 12:46 PM EDT) Hepatitis C Antibody Negative Negative [facility] Blood specimen (specimen) 12/09/2018 12:46 PM EDT 12/09/2018 1:30 PM EDT Narrative Resulting Agency Comment Spec In Lab Franklin Flores MD CHEMISTRY ORDERABLES Performing Organization Address [facility] Co de Phone Number [facility] [place] [address] * Rheumatoid factor, quant (12/09/2018 12:46 PM EDT) Pathologist [facility] [place] Rheumatoid Factor 11 <=14 IU/mL [facility] Blood specimen (specimen) 12/09/2018 12:46 PM EDT 12/09/2018 1:30 PM EDT Narrative Resulting Agency Comment Spec In Lab Franklin Flores MD CHEMISTRY ORDERABLES Performing Organization Address [facility] Co de Phone Number [facility] [place] [address] * (ABNORMAL) Cyclic Citrullinated Peptide (12/09/2018 12:46 PM EDT) Cyclic Citrulline Peptide 79.1(H) <=4.9 unit/mL [facility] Blood specimen (specimen) 12/09/2018 12:46 PM EDT 12/09/2018 1:30 PM EDT Narrative Resulting Agency Comment Spec In Lab Franklin Flores MD CHEMISTRY ORDERABLES Performing Organization Address [facility] Co de Phone Number [facility] [place] [address] * Sedimentation rate (12/09/2018 12:46 PM EDT) Sedimentation Rate Automated 5 0 - 15 mm/hr [facility] Blood specimen (specimen) 12/09/2018 12:46 PM EDT 12/09/2018 1:30 PM EDT Narrative Resulting Agency Comment Spec In Lab Franklin Flores MD HEMATOLOGY ORDERABLE S [facility] [address] [place] [address] * (ABNORMAL) Comprehensive metabolic panel (non-fasting) (12/09/2018 12:46 PM EDT) Glucose 238(H) 65 - 199 mg/dL [facility] Comment:Diabetes: >=200 mg/d L plus symptoms Blood Urea Nitrogen 17 10 - 20 mg/dL [facility] Creatinine 0.89 0.80 - 1.50 mg/dL [facility] Sodium 139 135 - 145 mmol/L [facility] Potassium 4.1 3.5 - 5.0 mmol/L [facility] Comment: Please note: ??Patients with WBC >100,000 may have falsely elevated Potassium levels. ??For accurate Potassium quantification in these patients send serum separator tube (gold top) for subsequent determinations. ??Contact the Clinical Chemistry Laboratory if there are any questions. Chloride 104 98 - 107 mmol/L [facility] Carbon Dioxide 23 22 - 31 mmol/L [facility] Anion Gap 12 5 - 15 mmol/L [facility] Calcium 9.2 8.5 - 10.5 mg/dL [facility] Protein, Total 6.8 6.1 - 8.0 gm/dL [facility] Albumin 4.5 3.2 - 5.2 gm/dL [facility] Aspartate Aminotransferase 24 0 - 39 unit/L [facility] Alanine Aminotransferase 24 0 - 55 unit/L [facility] Alkaline Phosphatase 57 40 - 120 unit/L [facility] Bilirubin, Total 0.8 0.2 - 1.3 mg/dL [facility] Est Glomerular Filtration Rate 99 >=60 mL/min/1. 73 m?? [facility] Comment: The eGFR was calculated using the CKD-EPI equation. As with all creatinine based estimates of kidney function, eGFR values calculated with the CKD-EPI equation are not accurate in patients with acute kidney failure, extremes of body mass or the acutely ill. [email or web address] [email or web address] CITYnkf eGFR 115 >=60 mL/min/1. 73 m?? [facility] Comment: The eGFR was calculated using the CKD-EPI equation. As with all creatinine based estimates of kidney function, eGFR values calculated with the CKD-EPI equation are not accurate in patients with acute kidney failure, extremes of body mass or the acutely ill. [email or web address] [email or web address] CITYnkf Blood specimen (specimen) 12/09/2018 12:46 PM EDT 12/09/2018 1:30 PM EDT Narrative Resulting Agency Comment Spec In Lab Franklin Flores MD CHEMISTRY ORDERABLES Performing Organization Address City/[facility]/ZIP Co de Phone Number [facility] [place] [address] * CRP, acute inflammation (12/09/2018 12:46 PM EDT) C-Reactive Protein 0.4 <=4.9 mg/L [facility] Blood specimen (specimen) 12/09/2018 12:46 PM EDT 12/09/2018 1:30 PM EDT Narrative Resulting Agency Comment Spec In Lab Franklin Flores MD CHEMISTRY ORDERABLES Performing Organization Address [facility] Co de Phone Number [facility] [place] [address] * XR Pelvis w AP & Lat [...] report, please contact the number below. ? Electronically signed by: VALENTIN Gonzalez [facility] ([phone]), at 12/09/2018 2:36 PM Narrative 12/09/2018 2:36 PM EDT EXAMINATION: XR [...] report, please contact the number below. ? Electronically signed by: VALENTIN Gonzalez [facility] ([phone]), at 12/09/2018 2:39 PM Narrative 12/09/2018 2:39 PM EDT EXAMINATION: XR [...] this report, please contact the number below. Electronically signed by: VALENTIN Gonzalez [facility]([phone]), at 12/09/2018 2:39 PM Franklin Flores MD IMG DX ORDERABLES documented in this encounter Visit Diagnoses Diagnosis High risk medication use Encounter for long-term (current) use of other medications Inflammatory arthropathy Arthropathy, unspecified, site unspecified Seropositive rheumatoid arthritis Rheumatoid arthritis Pain in both hands Bilateral hip pain Pain in joint, pelvic region and thigh Bilateral wrist pain Pain in joint, forearm Chronic pain of both knees Chronic bilateral low back pain without sciatica Morning joint stiffness Stiffness of joint, not elsewhere classified, unspecified site Inflammatory back pain Neck pain Cervicalgia Inflammatory arthropathy Arthropathy, unspecified, site unspecified Neck pain Cervicalgia Pain in both hands Bilateral wrist pain Pain in joint, forearm Bilateral hip pain Pain in joint, pelvic region and thigh Inflammatory back pain documented in this encounter Care Teams Operations And Maintenance Supervisor Relationship Specialty Start Date End Date Delisa Reno MD [address] [place] [address] PCP - General Family Medicine 12/09/18 documented as of this encounter
--- OUTSIDE RECORDS SUMMARY | 2024-06-17 21:38 | XMS_ITS | Encounter Summary ---
Author Organization [facility] Address [facility] [place] [address] Care Team Providers Care Credit Processor Name Role Phone Delisa Reno MD Primary Care Provider [phone] Encounter Details Date Type Department Care Team (Late st Contact Info) Description 04/05/2019 9:30 AM EDT [place] [address] Franklin Flores MD [facility] [place] [address] Inflammatory arthropathy; Seropositive rheumatoid arthritis; Chronic pain of both shoulders; Chronic pain of both knees; Pain in both hands; Chronic bilateral low back pain without sciatica; Rheumatoid arthritis, involving unspecified site, unspecified rheumatoid factor presence; Seropositive erosive rheumatoid arthritis Social History Tobacco Use Types Packs/Day Years Used Date Smoking Tobacco: Never Smokeless Tobacco: Former Sex and Gender Information Value Date Recorded Sex Assigned at Not on file Gender Identity Not on file Sexual Orientation Not on file documented as of this encounter Last Filed Vital Signs Vital Sign Reading Time Taken Comments Blood Pressure 130/78 04/05/2019 9:20 AM EDT Pulse 71 04/05/2019 9:20 AM EDT Temperature 36.8 ??C (98.2 ??F) 04/05/2019 9:20 AM ED T Respiratory Rate - - Oxygen Saturation 98% 04/05/2019 9:20 AM EDT Inhaled Oxygen Concentration - - Weight 102.1 kg (225 lb) 04/05/2019 9:20 AM EDT Height 175.3 cm (5' 9) 04/05/2019 9:20 AM EDT Body Mass Index 33.23 04/05/2019 9:20 AM EDT documented in this encounter Progress Notes * Franklin Flores MD - 04/05/2019 9:30 AM EDT Rheumatology Follow- Up Note RheumHx sero+RA od Dr Taylor on MTX patient last note not avaoilabe Weather has made History of fractured vertebrae in the lower back I have reviewed the provided records, pertinent records available at the time of the [facility] appointment with in the medical record and any forms completed by the patient. These have been scanned into the medical record for future review. Interval Hx Douglas Tellez Jr. is a 53 y.o. male who presents today for evalution Sero+ RA. Patient has not hadany increased activity with his rheumatological symptoms but recently had upper back lipoma removal. Has limited range of motion in the neck. Reports left shoulder pain has been doing some work outside but started about 1 week prior to the surgery is good range of motion of the shoulder no swelling redness warmth but has some posterior deltoid pain that radiates down into the elbow. He has been taking ibuprofen once a day 400 mg for the pain but has not noticed significant improvement. He has seen his primary care physician to evaluate the left shoulder and had referred him to some physical therapy which she has not started yet since recent upper neck surgery. He also has history of chroniclow back pain with history of degenerative disc disease without any red flag symptoms and describesno IBP. Does describe some prolonged morning stiffness in the lower back in the knees that resolveswith activity. No swelling redness or warmth no fever chills or night sweats no chronic dry eyes ormouth overall has had no recent swelling redness Warmth of any of the joints Describes no other morning stiffness Does a lot of physical labor outside with activity has not done so in 3 weeks feels slightly worse but he has not been active ROS: General (-)fevers, (-)chills, (-)night sweats, (-)wt [...] MS (-)muscle weakness, (-)paralysis, Endo (-)thyroid disorders, (+diabetes, (-)temperature intolerance. Neuro (-)focal weakness, (-)paresthesias, (-)gait instability. Skin (-)Raynaud's, (-)ulcers Psych (-) mood disorder. No past medical [...] on phone: None Gets together: None Attends baptism service: None Active member of club or organization: None Attends meetings of clubs or organizations: None Relationship status: None ??? Intimate partner violence: Fear of current or ex partner: None Emotionally abused: None Physically abused: None Forced sexual activity: None Other Topics Concern ??? None Social History Narrative ??? None Current Outpatient Medications Medication Sig Dispense Refill ??? folic acid (FOLVITE) 1 mg Tablet Take 2 tablets by mouth daily. 180 tablet 3 ??? gabapentin (NEURONTIN) 300 mg Capsule 300 mg 4 times daily. 0 ??? aspirin 81 mg Tablet, Chewable Take 81 mg by mouth daily. ??? metHOTREXate 2.5 mg Tablet Take 8 tablets by mouth once a week. 32 tablet 1 ??? PROAIR HFA 90 mcg/actuation HFA Aerosol Inhaler TAKE 1 TO 2 INHALATIONS BY MOUTH EVERY 4 TO 6 HOURS NEEDED FOR WHEEZE 0 ??? ONETOUCH ULTRA BLUE TEST STRIP Strip TEST four times a day 0 ??? hydroxychloroquine (PLAQUENIL) 200 mg Tablet 0 ??? levothyroxine (SYNTHROID) 175 mcg Tablet 0 ??? lisinopril (PRINIVIL;ZESTRIL) 10 mg Tablet 0 ??? pantoprazole (PROTONIX) 20 mg Tablet, Delayed Release (E.C.) 0 ??? simvastatin (ZOCOR) 20 mg Tablet Take 1 by mouth at bedtime 0 ??? insulin aspart (NOVOLOG) 100 unit/mL injection ??? insulin glargine (LANTUS) 100 unit/mL injection No current facility-administered medications for this visit. Current Outpatient Medications on File Prior to Visit Medication Sig Dispense Refill ??? folic acid (FOLVITE) 1 mg Tablet Take 2 tablets by mouth daily. 180 tablet 3 ??? gabapentin (NEURONTIN) 300 mg Capsule 300 mg 4 times daily. 0 ??? aspirin 81 mg Tablet, Chewable Take 81 mg by mouth daily. ??? metHOTREXate 2.5 mg Tablet Take 8 tablets by mouth once a week. 32 tablet 1 ??? PROAIR HFA 90 mcg/actuation HFA Aerosol Inhaler TAKE 1 TO 2 INHALATIONS BY MOUTH EVERY 4 TO 6 HOURS NEEDED FOR WHEEZE 0 ??? ONETOUCH ULTRA BLUE TEST STRIP Strip TEST four times a day 0 ??? hydroxychloroquine (PLAQUENIL) 200 mg Tablet 0 ??? levothyroxine (SYNTHROID) 175 mcg Tablet 0 ??? lisinopril (PRINIVIL;ZESTRIL) 10 mg Tablet 0 ??? pantoprazole (PROTONIX) 20 mg Tablet, Delayed Release (E.C.) 0 ??? simvastatin (ZOCOR) 20 mg Tablet Take 1 by mouth at bedtime 0 ??? insulin aspart (NOVOLOG) 100 unit/mL injection ??? insulin glargine (LANTUS) 100 unit/mL injection ??? [DISCONTINUED] aspirin 325 mg tablet (Patient not taking: Reported on 12/09/2018) No current facility-administered medications on file prior to visit. Allergies Allergen Reactions ??? Buster Inhibitors Physical Exam: BP 130/78 Pulse 71 Ht 175.3 cm (5' 9) SpO2 98% BMI 32.19 kg/m?? General: NAD HEENT: Mucous membranes are moist, [...] Toes down going bilaterally. Skin: (-)ulcers, (-)rash Vascular: Pulses are equal [...] nodules. Assessment: Douglas Tellez Jr. is a 53 y.o. male who presents today as a transfer of care from Dr. Taylor's office for seropositive RA on methotrexate 20 mg in divided doses weekly, folic acid and off HCQ because of neuropathic arm pain. Unlikely this was HCQ but patient symptoms today appear to low disease activity based on my assessment in remission with a significant amount osteoarthritis changes. XRays from last visit show healing erosion. Pain given a pain regiment gurinder include scheduled tylenol, ibuprofen PRN and turmeric and possibly Reviewed MTX toxicities Patient educated about disease activity Plan or Recommendation : Orders Placed This Encounter Procedures ??? CRP, acute inflammation ??? CBC (with Diff) ??? Albumin Level ??? Creatinine ??? Hepatic Function Panel ??? Sedimentation rate Franklin Flores MD documented in this encounter Miscellaneous Notes * Addendum Note - Lynn Carreon - 04/05/2019 9:30 AM EDTAddended by: LYNN CARREON on: 04/05/2019 10:12 AM Modules accepted: Orders documented in this encounter Plan of Treatment Not on file documented as of this encounter Procedures Procedure Name Priority Date/Time Associated Diagnosis Comments HC C-REACTIVE PROTEIN Routine 04/05/2019 10:23 AM EDT Inflammatory arthropathy Seropositive rheumatoid arthritis HEMOGRAM Routine 04/05/2019 10:23 AM EDT Inflammatory arthropathy Seropositive rheumatoid arthritis DIFFERENTIAL, AUTOMATED Routine 04/05/2019 10:23 AM EDT Inflammatory arthropathy Seropositive rheumatoid arthritis HC CREATININE Routine 04/05/2019 10:23 AM EDT Inflammatory arthropathy Seropositive rheumatoid arthritis HC ESR-SEDIMENTATION RATE, BLOOD Routine 04/05/2019 10:23 AM EDT Inflammatory arthropathy Seropositive rheumatoid arthritis HC CBC,PLT & AUTO DIFF Routine 04/05/2019 10:23 AM EDT Inflammatory arthropathy Seropositive rheumatoid arthritis ALBUMIN LEVEL Routine 04/05/2019 10:23 AM EDT Inflammatory arthropathy Seropositive rheumatoid arthritis HEPATIC FUNCTION PANEL Routine 04/05/2019 10:23 AM EDT Inflammatory arthropathy Seropositive rheumatoid arthritis documented in this encounter Results * Differential, Automated (04/05/2019 10:23 AM EDT) Neutrophil % 63.2 % [facility] Neutrophil Absolute 4.49 1.70 - 6.10 x10(3)/[facility] Lymph % 25.0 % [facility] Lymphocytes Abs 1.8 0.9 - 3.2 x10(3)/[facility] Monocyte % 7.1 % [facility] Monocyte Abs 0.5 0.3 - 0.9 x10(3)/[facility] Eos % 3.7 % [facility] Eosinophils Abs 0.3 0.0 - 0.4 x10(3)/[facility] Basophil % 0.6 % [facility] Baso Absolute 0.0 0.0 - 0.1 x10(3)/[facility] Immature Gran % 0.40 % [facility] Comment: Immature granulocytes(IG's)percentage and absolute count will include metamyelocytes, myelocytes, and promyelocytes. Blood smears from CBCs yielding IG's will be scanned manually for concordance. If this scan disagrees with the automated IG or if promyelocytes are noted, a manual differential will be performed. Immature Gran Absolute 0.03 0.00 - 0.04 x10(3)/[facility] Blood specimen (specimen) 04/05/2019 10:23 AM EDT 04/05/2019 10:33 AM EDT Narrative Resulting Agency Comment Spec In Lab Franklin Flores MD HEMATOLOGY ORDERABLE S [facility] [place] [address] * (ABNORMAL) Hemogram (04/05/2019 10:23 AM EDT) White Blood Cell 7.1 4.0 - 9.5 x10(3)/mc L [facility] Red Blood Cell 4.20(L) 4.58 - 5.54 x10(6)/mc L [facility] Hemoglobin 13.6(L) 13.7 - 16.5 gm/dL [facility] Hematocrit 40.2(L) 40.5 - 48.5 % [facility] Mean Cell Volume 95.7(H) 82.9 - 93.1 fL [facility] Mean Cell Hemoglobin 32.4(H) 27.5 - 32.1 pg [facility] Mean Cell Hemoglobin Concentration 33.8 32.0 - 35.7 gm/dL [facility] Platelet 328 145 - 357 x10(3)/mc L [facility] RDW Standard Deviation 46.7(H) 36.0 - 45.0 fL [facility] RDW coefficient of variation 13.4 11.4 - 13.8 % [facility] Mean Platelet Volume 9.9 7.6 - 12.9 [facility] NRBC% auto 0.0 % [facility] NRBC Absolute 0.000 0.000 - 0.000 x10(3)/mc L [facility] Blood specimen (specimen) 04/05/2019 10:23 AM EDT 04/05/2019 10:33 AM EDT Narrative Resulting Agency Comment Spec In Lab Franklin Flores MD HEMATOLOGY ORDERABLE S Performing Organization Address [facility] Co de Phone Number [facility] [place] [address] * CRP, acute inflammation (04/05/2019 10:23 AM EDT) C-Reactive Protein 0.6 <=4.9 mg/L [facility] Blood specimen (specimen) 04/05/2019 10:23 AM EDT 04/05/2019 10:33 AM EDT Narrative Resulting Agency Comment Spec In Lab Franklin Flores MD CHEMISTRY ORDERABLES Performing Organization Address [facility] Co de Phone Number [facility] [place] [address] * Albumin Level (04/05/2019 10:23 AM EDT) Albumin 4.5 3.2 - 5.2 gm/dL [facility] Blood specimen (specimen) 04/05/2019 10:23 AM EDT 04/05/2019 10:33 AM EDT Narrative Resulting Agency Comment Spec In Lab Franklin Flores MD CHEMISTRY ORDERABLES Performing Organization Address [facility] Co de Phone Number [facility] [place] [address] * Creatinine (04/05/2019 10:23 AM EDT) Creatinine 0.89 0.80 - 1.50 mg/dL [facility] Est Glomerular Filtration Rate 99 >=60 mL/min/1.7 3 m?? [facility] Comment: The eGFR was calculated using the CKD-EPI equation. As with all creatinine based estimates of kidney function, eGFR values calculated with the CKD-EPI equation are not accurate in patients with acute kidney failure, extremes of body mass or the acutely ill. [email or web address] eGFR 115 >=60 mL/min/1.7 3 m?? [facility] Comment: The eGFR was calculated using the CKD-EPI equation. As with all creatinine based estimates of kidney function, eGFR values calculated with the CKD-EPI equation are not accurate in patients with acute kidney failure, extremes of body mass or the acutely ill. [email or web address] Blood specimen (specimen) 04/05/2019 10:23 AM EDT 04/05/2019 10:33 AM EDT Narrative Resulting Agency Comment Spec In Lab Franklin Flores MD CHEMISTRY ORDERABLES Performing Organization Address [facility] Co de Phone Number [facility] [place] [address] * Hepatic Function Panel (04/05/2019 10:23 AM EDT) Protein, Total 6.5 6.1 - 8.0 gm/dL [facility] Albumin 4.5 3.2 - 5.2 gm/dL [facility] Aspartate Aminotransferase 17 0 - 39 unit/L [facility] Alanine Aminotransferase 26 0 - 55 unit/L [facility] Alkaline Phosphatase 58 40 - 130 unit/L [facility] Bilirubin, Total 0.3 0.2 - 1.3 mg/dL [facility] Bilirubin, Direct 0.1 0.0 - 0.3 mg/dL [facility] Blood specimen (specimen) 04/05/2019 10:23 AM EDT 04/05/2019 10:33 AM EDT Narrative Resulting Agency Comment Spec In Lab Franklin Flores MD CHEMISTRY ORDERABLES Performing Organization Address [facility] Co de Phone Number [facility] [place] [address] * Sedimentation rate (04/05/2019 10:23 AM EDT) Sedimentation Rate Automated 7 0 - 15 mm/hr [facility] Blood specimen (specimen) 04/05/2019 10:23 AM EDT 04/05/2019 10:33 AM EDT Narrative Resulting Agency Comment Spec In Lab Franklin Flores MD HEMATOLOGY ORDERABLE S Performing Organization Address [facility] Co de Phone Number [facility] [place] [address] documented in this encounter Visit Diagnoses Diagnosis Inflammatory arthropathy Arthropathy, unspecified, site unspecified Seropositive rheumatoid arthritis Rheumatoid arthritis Chronic pain of both shoulders Pain in joint, shoulder region Chronic pain of both knees Pain in both hands Chronic bilateral low back pain without sciatica Rheumatoid arthritis, involving unspecified site, unspecified rheumatoid factor presence Seropositive erosive rheumatoid arthritis documented in this encounter Care Teams Credit Processor Relationship Specialty Start Date End Date Delisa Reno MD [address] [place] [address] PCP - General Family Medicine 12/09/18 documented as of this encounter
--- OUTSIDE RECORDS SUMMARY | 2024-06-17 21:38 | XMS_ITS | Encounter Summary ---
Author Organization [facility] Address [address] [place] [address] Care Team Providers Care Angle Dozer Operator Name Role Phone Unknown, Provider Primary Care Provider Unava ilable Encounter Details Date Type Department Care Team (Late st Contact Info) Description 05/22/2020 Lab Requisition [facility] Pathology & Laboratory Medicine - [address] [id number] Outr Resulting Lab, Provider Social History Tobacco [...] Procedure Name Priority Date/Time Associated Diagnosis Comments HIV 1/2 ANTIGEN AND ANTIBODY, 4TH GENERATION Routine 05/21/2020 15:10 EST documented in this encounter Results * HIV 1/2 ANTIGEN AND ANTIBODY, 4TH GENERATION (05/21/2020 15:10 EST) HIV 1 and 2 Antibody/p24 Antigen, 4th Generation Negative Negative 05/23/2020 10:12 EST [facility] Comment: If acute HIV-1 infection is suspected in a high risk ??patient, submit plasma specimen for HIV-1 RNA quantitation test. Fourth Generation assay performed on the Siemens E[employer] Studioaur. Blood VENOUS BLOOD / Unknown 05/21/2020 15:10 EST 05/22/2020 16:29 EST us Provider Outr Resulting Lab IMMUNOLOGY AND SEROL OGY ORDERABLES Final Result Performing Organization Address City/State/[facility] Co de Phone Number [facility] [address] [place] [address] documented in this encounter Visit Diagnoses Not on filedocumented in this encounter Care Teams Angle Dozer Operator Relationship Specialty Start Date End Date Unknown, Provider, PCP - General 10/21/16 documented as of this encounter
[2024-06-17 21:55] LABS: BE (Venous) -2 mmol/L (-2-3); HCO3 (Venous) 25 mmol/L (23-28); O2 Sat (Venous) 54 %; TCO2 (Venous) 23 mmol/L (24-29); pCO2 (Venous) 51 mmHg (41-51); pO2 (Venous) 31 mmHg
[2024-06-17 21:57] LABS: Abs Immature Grans 0.06 10^3/uL (0.0-0.06); Absolute Basophil Count 0.04 10^3/uL (0.0-0.2); Absolute Eosinophil Count 0.13 10^3/uL (0.0-0.7); Absolute Monocyte Count 0.71 10^3/uL (0.1-0.8); Basophils % 0.3 %; HGB 15.5 g/dL (13.5-17.5); Immature Grans % 0.5 %; Lymphocytes % 8.5 %; MCH 30.9 pg (27.0-33.0); MCV 94 fL (80-95); MPV 9.7 fL (8.0-11.0); Monocytes % 5.4 %; Neutrophils % 84.3 %; Platelet Count 274 10^3/uL (130-400); RBC 5.01 10^6/uL (4.36-5.78); RDW 11.9 % (11.8-14.1); RDW-SD 41.2 fL; WBC 13.13 10^3/uL (4.4-10.8)
[2024-06-17 21:58] LABS: Absolute Lymphocyte Count 1.12 10^3/uL (1.2-3.4); Absolute Neutrophil Count 11.07 10^3/uL (1.2-6.7)
--- NOTE | 2024-06-17 22:04 | NUR.NOTE ---
Nursing Note: report and transfer of care given to Luis Cade RN by Sarah Chen RN at this time
--- NOTE | 2024-06-17 22:14 | ED.GENADUL_ITS ---
Discharge Plan Disposition Patient Disposition: Home Condition: Stable Discharge Details Clinical Impression: Hypoglycemia due to type 1 diabetes mellitus, GERD (gastroesophageal reflux disease), Hyperlipidemia Primary Care Provider: Delisa Reno V ED Provider: Lexis Rubalcava Home Meds and New Rx's Prescriptions: No Action cyclobenzaprine 5 mg tablet 5 mg PO TID PRN (Reason: muscle spasm) Qty: 20 0RF albuterol sulfate [Ventolin HFA] 90 mcg/actuation HFA aerosol inhaler 2 puff inhalation Q6H PRN levothyroxine 175 MCG tablet 150 mcg PO DAILY gabapentin [Neurontin] 400 MG capsule 400 mg PO QID simvastatin 10 MG tablet 10 mg PO DAILY lisinopril 10 MG tablet 10 mg PO DAILY glucosamine sulfate [Glucosamine] 500 mg Tablet 1,000 mg PO DAILY multivitamin Capsule 1 cap PO DAILY insulin aspart U-100 [Novolog FlexPen U-100 Insulin] 100 unit/mL (3 mL) insulin pen See Rx Instructions .ROUTE .COMPLEX Rx Instructions: Sliding scale insulin glargine [Lantus Solostar U-100 Insulin] 100 unit/mL (3 mL) insulin pen 24 unit SUBCUT QAM pantoprazole 40 mg tablet,delayed release (DR/EC) 40 mg PO BID budesonide-formoterol [Symbicort] 160-4.5 mcg/actuation HFA aerosol inhaler 1 inh inhalation BID Discharge Instructions Instructions: Low Blood Sugar, Adult ED Additional Instructions: You were seen in the emergency department today for evaluation of low blood sugar. Our department had a full physical examination performed, had reassuring laboratory studies and received sugar through your IV. You also were able to eat and drink and your blood sugar has stabilized. This likely occurred due to excessive physical activity without adequate food intake. Please check your blood glucose as recommended by your doctor, and at least 1 more time before you go to sleep [facility]. If you have difficulty getting your blood glucose to a safe level, you can always call 911 or return to the emergency department for reevaluation. Please follow-up with your primary care provider in the next few days to discuss this visit and any symptoms that change, worsen, or persist. Th ank you for allowing us to be part of your care. HPI General Mode of arrival: EMS . Date/Time Provider Initiated Documentation: 06/17/24 21:34 . Limitations to Documentation: no limitations . Information obtained by: patient, EMS and old records reviewed . HPI Narrative: HPI: This is a 59-year-old male patient with a past medical history significant for type 1 diabetes, hyperlipidemia, presenting for evaluation of low blood glucose. The patient was noted by his to be acting abnormal for him since 4 PM, notices home blood glucose to be 45. She provided him with honey and oral sugar sources without improvement. EMS was summoned, he received 200 mL of D10, did have improvement gradually in his mental status so much more slowly than his typical for when they are called for him. They also noted that blood glucose would rapidly trended back downwards, requiring continuation of the D10 infusion. The patient reports he has been taking his insulin as prescribed, with his morning long-acting insulin and his sliding scale. He took 18 units of sliding scale this afternoon based on his blood glucose in the 200s. He reports that he did use the snowblower this morning, ate lunch and had not yet eaten dinner. He states that he is otherwise been in his normal state of health, and specifically denies fever, chills, shortness of breath, cough, abdominal pain, dysuria. The patient denies any excessive insulin use or other changes to his regimen. Exam: Gen: Awake and alert, in no apparent distress HEENT: Non-icteric sclera, PERRL, EOMs full. Neck: Supple Lungs: No apparent respiratory distress, normal respiratory effort. Lung sounds clear and equal without wheezes, rhonchi, or rales CV: Appears well perfused, heart with regular rate and rhythm, no murmurs auscultated, strong distal pulses Abdomen: Non-distended, soft, nontender to palpation MSK: Moves 4 extremities without apparent limitation in ROM Skin: Visualized skin without rashes, cyanosis. Neuro: Normal Gait, no obvious focal deficits or facial asymmetry. Speaks in full, clear sentences. Psych: Appropriate for situation. MDM: This is a 59-year-old male patient presenting for evaluation of hypoglycemia. My differential includes but is not limited to effect of insulin in the setting of inadequate p.o. intake and excessive exertion. Certainly considered inadvertent or intentional excessive insulin use. Considered metabolic and electrolyte derangements, infections including viral URI, urinary tract infection. History and physical less consistent with pneumonia, intra-abdominal infection. Considered kidney injury, liver injury. At this time the patient is mentating appropriately, has not sustained any traumatic injuries and I have low concern for intracranial abnormalities. His fingerstick blood glucose is 120. I will obtain laboratory studies to include CBC, CMP, magnesium, VBG, urinalysis, and viral swab. ED Course: I reviewed the laboratory signs that show mild leukocytosis to 13 without anemia or thrombocytopenia. VBG shows no significant acidosis, chemistry without significant electrolyte derangements, kidney dysfunction or liver disease. Troponin was negative and the UA was noninfectious. COVID swab negative. The patient tolerated a full meal, and his repeat blood glucose was 110. I am most concerned that he exerted himself excessively without adequate caloric intake. He feels continuing to monitor his blood glucose in the home environment. At this time, the patient has had a full medical evaluation and is safe for discharge to home. They are hemodynamically stable, ambulatory, and tolerating PO. They are understanding of the follow-up plan and return precautions. They left our facility without incident. Lexis Rubalcava MD Related Data Home Medications ?Medication ?Instructions ?Recorded ?Confirmed gabapentin 400 mg capsule 400 mg PO QID 09/12/13 06/17/24 (Neurontin) levothyroxine 175 mcg tablet 150 mcg PO DAILY 09/12/13 06/17/24 lisinopril 10 mg tablet 10 mg PO DAILY 09/12/13 06/17/24 simvastatin 10 mg tablet 10 mg PO DAILY 09/12/13 06/17/24 glucosamine sulfate 500 mg tablet 1,000 mg PO DAILY 11/17/22 06/17/24 (Glucosamine) insulin aspart U-100 100 unit/mL See Rx Instructions .Route .COMPLEX 11/17/22 06/17/24 (3 mL) subcutaneous pen (Novolog FlexPen U-100 Insulin aspart) insulin glargine 100 unit/mL (3 24 unit subcut QAM 11/17/22 06/17/24 mL) subcutaneous pen (Lantus Solostar U-100 Insulin) multivitamin 1 cap PO DAILY 11/17/22 06/17/24 cyclobenzaprine 5 mg tablet 5 mg PO TID PRN muscle spasm #20 07/22/23 06/17/24 tabs budesonide-formoterol HFA 160 1 inh inhalation BID 03/04/24 01/11/25 mcg-4.5 mcg/actuation aerosol inhaler (Symbicort) pantoprazole 40 mg tablet,delayed 40 mg PO BID 08/09/23 06/17/24 release albuterol sulfate 90 mcg/actuation 2 puff inhalation Q6H PRN 03/15/24 06/17/24 aerosol inhaler (Ventolin HFA) Previous Rx's ?Medication ?Instructions ?Recorded cyclobenzaprine 5 mg tablet 5 mg PO TID PRN muscle spasm #20 07/22/23 tabs Allergies Allergy/AdvReac Type Severity Reaction Status Date / Time angiotensin II acetate, human Allergy Other (See Verified 06/17/24 21:40 Comment) insulin detemir (From AdvReac Severe Severe Verified 06/17/24 21:40 Levemir U-100 Insulin) Hypoglycemia: [place] awful fluticasone (From Flonase) AdvReac Intermediate Lightheaded Verified 06/17/24 21:40 ness methotrexate AdvReac Intermediate Abdominal Verified 06/17/24 21:40 pain sildenafil citrate (From AdvReac Mild Other (See Verified 06/17/24 21:40 Viagra) Comment) General Stated Complaint: Diabetes ANISA: 3 Course Vital Signs Vital signs: Vital Signs Temperature 33.4 C L 06/17/24 21:24 Pulse 71 06/17/24 21:24 Respiratory Rate 18 06/17/24 21:24 Blood Pressure 158/89 H 06/17/24 21:24 Pulse Oximetry 97 06/17/24 21:24 Temperature 33.4 C L 06/17/24 21:36 Temperature Source Tympanic 06/17/24 21:36 Pulse 59 L 06/17/24 21:36 Respiratory Rate 16 06/17/24 21:36 Blood Pressure 163/99 H 06/17/24 21:36 Blood Pressure Position Supine 06/17/24 21:36 Pulse Oximetry 98 06/17/24 21:36 Oxygen Delivery Method Room Air 06/17/24 21:36 Oxygen Flow Rate 0 06/17/24 21:24 Pain Level 0 06/17/24 21:36 Lab/Test Results Lab/Test Results: Laboratory Tests Range/Units 06/17/24 21:48 WBC (4.4-10.8) 10^3/uL 13.13 H RBC (4.36-5.78) 10^6/uL 5.01 Hgb (13.5-17.5) g/dL 15.5 Hct (40.0-50.0) % 47.0 MCV (80-95) fL 94 MCH (27.0-33.0) pg 30.9 MCHC (32.0-36.0) % 33.0 RDW (11.8-14.1) % 11.9 Plt Count (130-400) 10^3/uL 274 MPV (8.0-11.0) fL 9.7 Immature Gran % % 0.5 Neutrophils % % 84.3 Lymphocytes % % 8.5 Monocytes % % 5.4 Eosinophils % % 1.0 Basophils % % 0.3 Nucleated RBC % (0.0-0.3) % 0.0 Absolute Neutrophils (1.2-6.7) 10^3/uL 11.07 H Absolute Lymphocytes (1.2-3.4) 10^3/uL 1.12 L Absolute Monocytes (0.1-0.8) 10^3/uL 0.71 Absolute Eosinophils (0.0-0.7) 10^3/uL 0.13 Absolute Basophils (0.0-0.2) 10^3/uL 0.04 VBG pH (7.31-7.41) 7.30 L VBG pCO2 (41-51) mmHg 51 VBG pO2 mmHg 31 VBG HCO3 (23-28) mmol/L 25 VBG Total CO2 (24-29) mmol/L 23 L VBG O2 Saturation % 54 VBG Base Excess (-2-3) mmol/L -2 Medical Decision Making Quality:SDOH Health Related Social Needs: No Data to Display PFSH All Active Problems (Updated 06/17/24 @ 23:57 by Lexis Rubalcava MD) Hypoglycemia due to type 1 diabetes mellitus (Acute) Degenerative joint disease of right knee (Acute) Left knee DJD (Acute) Knee pain, bilateral (Acute) Corns and callosities (Acute) Hyperlipidemia (Acute) GERD (gastroesophageal reflux disease) (Chronic) Medical History Plantar fascial fibromatosis Amputation of great toe Carpal tunnel syndrome Diabetic retinopathy Hypothyroidism Diabetes mellitus Diabetic neuropathy Essential hypertension Surgical History History of open reduction and internal fixation (ORIF) procedure left femur Status post cataract extraction and insertion of intraocular lens of right eye Amputation (R) Great toe Family History Mother No problems noted. Father Heart disease Social History Smoking/Tobacco Use Status: Never Smoking risk assessment performed?: Yes Alcohol Intake: never Drug use: Occasionally Substance use type: marijuana Housing: house Do you feel safe at home: Yes Do you feel safe in your relationship?: Yes
[2024-06-17 22:15] LABS: ALT 31 U/L (16-63); AST 21 U/L (15-37); Alkaline Phosphatase 74 U/L (46-116); Anion Gap 11.7 mmol/L (3-11); BUN 12 mg/dL (7-18); Bilirubin, Total 0.39 mg/dL (0.2-1.0); CO2 27.3 mmol/L (21.0-32.0); Chloride 104 mmol/L (98-107); Estimated GFR 87.78 (mL/min/1.73m2); Glucose 115 mg/dL (74-106); Magnesium 2.1 mg/dL (1.8-2.4); Potassium 3.7 mmol/L (3.5-5.1); Sodium 143 mmol/L (136-145); Total Protein 7.3 g/dL (6.4-8.2); Troponin I < 4 ng/L (<or=76)
[2024-06-17 22:33] LABS: COVID-19 PCR Negative (Negative); Influenza A PCR Negative (Negative); Influenza B PCR Negative (Negative); RSV PCR Negative (Negative); Source Nasopharynx
[2024-06-17 23:48] LABS: Bilirubin Negative (Negative); Blood Negative (Negative); Clarity Clear (Clear); Glucose Negative (Negative); Ketones Negative (Negative); Leukocyte Esterase Negative (Negative); Nitrite Negative (Negative); Urobilinogen 0.2 mg/dL (Up to 0.2)
[2024-06-18 02:37] VITALS: BP 149/80; PULSE 93; RESP 15; TEMP 36.7; O2SAT 97
== END 2024-06-18 03:06 | disposition home or self-care (01) ==
PROVIDERS: Emergency Provider Emergency Medicine; PCP Family Medicine
DX: E10.649 Type 1 diabetes mellitus with hypoglycemia without coma (principal); K21.9 Gastro-esophageal reflux disease without esophagitis; E78.5 Hyperlipidemia, unspecified; I10 Essential (primary) hypertension
CPT/HCPCS: 36416; 80053; 82805; 82962; 87637; 99283; 81003; 83735; 84484; 85025; 99284

== ENCOUNTER 2024-12-01 11:29 | Outpatient (REF) | payer MEDICAID, SELFPAY ==
[2024-11-24 19:45] LABS: ESR 9 mm/hr (0-20)
[2024-11-24 20:10] LABS: ALT 38 U/L (16-63); AST 23 U/L (15-37); Albumin 4.4 g/dL (3.4-5.0); Alkaline Phosphatase 84 U/L (46-116); Anion Gap 12.2 mmol/L (3-11); BUN 21 mg/dL (7-18); Bilirubin, Total 1.4 mg/dL (0.2-1.0); CO2 23.8 mmol/L (21.0-32.0); CREATININE 0.9 mg/dL (0.70-1.30); Calcium 9.6 mg/dL (8.5-10.1); Chloride 102 mmol/L (98-107); Estimated GFR 99.62 (mL/min/1.73m2); Glucose 140 mg/dL (74-106); Potassium 4.3 mmol/L (3.5-5.1); Sodium 138 mmol/L (136-145); Total Protein 7.2 g/dL (6.4-8.2)
[2024-11-24 20:12] LABS: C-Reactive Protein < 0.50 mg/dL (<or=0.5)
== END 2024-12-01 11:30 | disposition home or self-care (01) ==
LOC: NCHCN 11:29
PROVIDERS: PCP Family Medicine; Visit Provider Family Medicine
DX: I10 Essential (primary) hypertension (principal); E03.9 Hypothyroidism, unspecified; M06.9 Rheumatoid arthritis, unspecified
CPT/HCPCS: 80053; 85652; 84443; 86140